=== PATIENT | female | born 1940 | race Caucasian/White ===

== ENCOUNTER 2018-09-07 08:50 | Inpatient (IN) ==
--- NOTE | 2018-09-07 09:01 | Emergency Department Note ---
Addendum entered and electronically signed by Yoel Morgan DO 09/07/18 13:42: The history, physical exam, and medical decision making was performed by the medical student either while I was physically present and actively involved or I personally re-performed the exam and medical decision making. I have verified the accuracy of the medical student's documentation with regards to the history, physical exam findings, and medical decision making. Few additional note for further information and documentation as this note was signed prior to my documentation. Original Note: Disposition Clinical Impression: NSTEMI (non-ST elevated myocardial infarction) Disposition: Still a Patient Forms: Work/School Release, ED Satisfaction Letter General Adult HPI - General Chief complaint: ED Abdominal Pain Stated complaint: Pain Everywhere Time Seen by Provider: 09/07/18 09:00 Mode of arrival: ambulatory Limitations: no limitations Vital Signs Reviewed: Yes - History of Present Illness HPI Narrative: Marjorie Portillo is a 78 year old female presenting to the emergency department with a two hour history of mid sternal chest pain radiating down into her right flank, along with nausea, vomiting, and diarrhea. She states that at 7:30 this morning she awoke to use the bathroom and was unable to return to sleep due to the pain. She states that the pain does not radiate into either arm. She states that she has had 3 episodes of non-bloody emesis along with "continuous" diarrhea. She states that she has had this chest pain before in the past, and presented to he ED twice. She states that the last time she had this pain was in October when she underwent a heart catheterization, but denies any stent placement or further action and believes that the cath did no show any significant blockages. She states that she was given nitro to take if she had future chest pain, but that she did not take it this morning. She states that both of her brothers had IA's, but they were over the age of 50. She denies any recent travel, surgeries, prior DVTs or PEs, or use of hormone therapy. She admits to a recent URI, but denies any current cough, fevers, or chills. Onset (ago): hour(s) (2) Location: chest, back, abdomen Radiation: non-radiation Pain Severity: moderate, similar to prior episodes Pain Scale: 8 Quality: crushing Consistency: constant Improves with: nothing Worsens with: other (Deep breath) Associated symptoms: Reports: chest pain Treatments Prior to Arrival: none - Related Data Home Medications Medication Instructions Recorded Confirmed Amitriptyline [Elavil] 10 mg PO DAILY 03/03/16 03/03/16 Aspirin 81 mg PO DAILY 03/03/16 03/03/16 Atorvastatin [Lipitor] 40 mg PO HS 03/03/16 03/03/16 Clopidogrel Bisulfate [Plavix] 75 mg PO 03/03/16 GlipiZIDE XL (24 HR) [Glucotrol XL] 10 mg PO 0800 03/03/16 03/03/16 Lisinopril [Zestril] 10 mg PO BID 03/03/16 03/03/16 Metformin HCl ER 03/03/16 Metoprolol [Lopressor] 25 mg PO BID 03/03/16 03/03/16 Pentosan Polysulfate Sodium 100 mg PO Q4H PRN 03/03/16 03/03/16 [Elmiron] SitaGLIPtin [Januvia] 100 mg PO DAILY 03/03/16 03/03/16 Previous Rx's Medication Instructions Recorded HYDROcodone/Acet 5/325 mg [[place] 0.5 - 1 tab PO Q6H PRN #6 tab 11/12/17 5-325 mg] Allergies Allergy/AdvReac Type Severity Reaction Status Date / Time Penicillins Allergy Anaphylaxis Verified 11/12/17 18:02 All systems ED: reviewed and negative except as stated. Review of Systems: As Per HPI Constitutional: Denies: fever, chills, weakness, weight change Eyes: Denies: eye pain, eye discharge, vision change ENT ED: Denies: ear pain, throat pain, dental pain, hearing loss, epistaxis, congestion, dysphagia Cardiovascular: Reports: as per HPI, chest pain. Denies: palpitations, dyspnea on exertion, orthopnea, edema, syncope, paroxysmal nocturnal dyspnea Respiratory: Reports: as per HPI, dyspnea. Denies: cough, wheezes, hemoptysis, stridor Gastrointestinal: Reports: as per HPI, abdominal pain, nausea, vomiting, diarrhea. Denies: constipation, hematemesis, melena, hematochezia, other Genitourinary: Reports: as per HPI (Takes Azo for chronic interstitial cystitis so urine is discolored). Denies: urgency, dysuria, frequency, hematuria, discharge, abnormal menses, dyspareunia, genital lesions Musculoskeletal: Reports: as per HPI. Denies: back pain, neck pain, joint swelling, arthralgia, myalgia Integumentary: Denies: rash, abrasion, lesions Neurological: Denies: headache, weakness, numbness, paresthesias, confusion, abnormal gait, vertigo Psychiatric: Denies: anxiety, depression, suicidal thoughts, homicidal thoughts, auditory hallucinations, visual hallucinations Endocrine: Denies: fatigue Hematological/Lymphatic: Denies: easy bleeding, easy bruising Allergic/Immunologic: Denies: facial swelling, urticaria Past Medical History - Past Medical History Medical history: Reports: diabetes, hyperlipidemia, hypertension, renal disease, TIA Surgical history: Reports: other Psychiatric history: Reports: no psych history REGIONAL OPERATIONS MANAGER history: Reports: no REGIONAL OPERATIONS MANAGER history - Social History Smoking Status: Former smoker Smokeless Tobacco Status: No Alcohol use: Reports: occasionally Drug use: Reports: none Physical Exam - General Limitations: no limitations General appearance: alert, in no apparent distress - Head Head exam: atraumatic, normocephalic, normal inspection - Eye Eye exam: Present: normal appearance, PERRL, EOMI - ENT ENT exam: normal exam, normal oropharynx, mucous membranes moist - Neck Neck exam: Present: normal inspection, full ROM, trachea midline - Chest Chest inspection: Present: normal inspection, symmetric chest wall rise. Absent: tenderness, rash, abscess - Respiratory Respiratory exam: Present: normal lung sounds bilaterally - Cardiovascular Cardiovascular exam: Present: regular rate, normal rhythm, normal heart sounds - Abdominal Exam Abdominal exam: Present: soft, tenderness (Lower abdomen). Absent: distention, guarding, rebound, rigidity - Extremities Exam Extremities exam: Present: normal inspection, full ROM. Absent: tenderness, pedal edema - Expanded Lower Extremity Exam Hip/Pelvis exam: Present: normal inspection, full ROM Upper leg exam: Present: normal inspection, full ROM Knee exam: Present: normal inspection, full ROM Lower leg exam: Present: normal inspection, full ROM Ankle exam: Present: normal inspection, full ROM Foot/toe exam: Present: normal inspection, full ROM Neurovascular/Tendon exam: Absent: motor deficit, sensory deficit, tendon deficit - Back Exam Back exam: Present: full ROM, paraspinal tenderness. Absent: rashes - Neurological Exam Neurological exam: Present: alert, oriented X3 - Psychiatric Psychiatric exam: Present: normal affect, normal mood - Skin Skin exam: Present: warm, dry, intact, normal color. Absent: rash Course Vital Signs Temperature 97.5 F L 09/07/18 08:51 Pulse Rate 71 09/07/18 08:51 Respiratory Rate 18 09/07/18 08:51 Blood Pressure 179/116 09/07/18 08:51 O2 Sat by Pulse Oximetry 97 09/07/18 08:51 Temperature 97.5 F L 09/07/18 09:12 Pulse Rate 71 09/07/18 09:12 Respiratory Rate 18 09/07/18 09:12 Blood Pressure 179/116 09/07/18 09:12 O2 Sat by Pulse Oximetry 97 09/07/18 09:12 Oxygen Delivery Oxygen Delivery Room Air Medical Decision Making - Lab Data Lab Results 09/07/18 Range/Units 09:22 Urine Color [place] A (Yellow) Urine Clarity Turbid A (Clear) Urine pH 7.0 (5.0-8.0) pH Units Ur Specific [place] 1.025 (1.010-1.025) Urine Protein 100 H (Neg-Trace) mg/dL Urine Glucose (UA) 500 H (Normal) mg/dL Urine Ketones Trace H (Negative) mg/dL Urine Blood Large H (Negative) Urine Nitrite Positive A (Negative) Urine Bilirubin Small H (Negative) Urine Urobilinogen 2.0 H (Normal) mg/dL Ur Leukocyte Esterase Small H (Negative) Urine Microscopic RBC 0-3 (0-3) per hpf Urine Microscopic WBC 0-3 (0-3) per hpf Ur Squamous Epith Cells Few (None-Few) per lpf Amorphous Sediment Few (Few) Urine Bacteria None Seen (None-Few) per hpf Hyaline Casts None Seen (None-Few) per lpf Urine Yeast Few H (None Seen) per hpf Ur Culture Indicated? YES A (NO)
[2018-09-07 09:34] LABS: Bilirubin,Urine Small (Negative); Blood,Urine Large (Negative); Clarity,Urine Turbid (Clear); Color,Urine Orange (Yellow); Glucose,Urine (UA) 500 mg/dL (Normal); Ketones,Urine Trace mg/dL (Negative); Leukocyte Esterase,Urine Small (Negative); Nitrite,Urine Positive (Negative); Protein,Urine 100 mg/dL (Neg-Trace); Specific Gravity,Urine 1.025 (1.010-1.025)
[2018-09-07 09:36] LABS: Bacteria,Urine None Seen per hpf (None-Few); Hyaline Casts,Urine None Seen per lpf (None-Few); RBC,Urine 0-3 per hpf (0-3); Squamous Epithelial Cell,Urine Few per lpf (None-Few); WBC,Urine 0-3 per hpf (0-3)
[2018-09-07] MEDS ORDERED: *HR* FentaNYL (PF) 100 MCG/2 ML VIAL IVP ONE (09:43)
[2018-09-07] MEDS ORDERED: Ondansetron 4 MG/2 ML VIAL IVP ONE (09:44)
[2018-09-07] MEDS ORDERED: Aspirin 81 MG TAB.CHEW PO STA (09:45)
[2018-09-07 09:55] LABS: Amorphous Sediment,Urine Few (Few)
[2018-09-07 09:57] LABS: Yeast,Urine Few per hpf (None Seen)
[2018-09-07] MEDS ORDERED: Isovue-370 500 ML INFUS..BTL IV ONE (10:10)
[2018-09-07 10:35] LABS: Alanine Aminotransferase 18 Units/L (7-52); Albumin 4.3 g/dL (3.5-5.7); Albumin/Globulin Ratio 1.6 (1.1-2.2); Alkaline Phosphatase 62 Units/L (34-104); Aspartate Amino Transferase 16 Units/L (13-39); BUN/Creatinine Ratio 19 (6-26); Bilirubin,Total 0.7 mg/dL (0.3-1.0); Blood Urea Nitrogen 18 mg/dL (8-23); Calcium 9.1 mg/dL (8.6-10.3); Carbon Dioxide 28 mEq/L (23-29); Chloride 105 mEq/L (98-107); Globulin 2.7 g/dL (2.4-3.5); Glucose 315 mg/dL (70-105); Lipase 102 Units/L (11-82); Osmolality,Calculated 306 (280-300); Potassium 4.2 mEq/L (3.5-5.1); Sodium 141 mEq/L (136-145); eGFR For Non-African Americans 56 (> 60)
[2018-09-07 10:36] LABS: Troponin I 0.11 ng/mL (< 0.04)
[2018-09-07] MEDS ORDERED: cefTRIAXone 1,000 MG in Water for inj. (sterile) 20 ML 10 ML IVP ONE (10:42)
[2018-09-07] MEDS ORDERED: *HR* Labetalol 20 MG/4 ML SYRINGE IVP ONE (10:47)
[2018-09-07 10:57] LABS: Basophils # 0.1 K/mcL (0.0-0.2); Basophils % 0.4 %; Eosinophils # 0.1 K/mcL (0.0-0.6); Eosinophils % 0.9 %; Hematocrit 42.8 % (35.3-44.9); Hemoglobin 13.8 g/dL (11.5-15.4); Immature Granulocytes % 0.5 % (0-4); Lymphocytes # 1.2 K/mcL (0.6-4.6); Lymphocytes % 8.1 %; Mean Corpuscular HGB Conc 32.2 g/dL (31.6-35.5); Mean Corpuscular Hemoglobin 29.1 pg (28.0-33.3); Mean Corpuscular Volume 90.3 fL (83.0-100.0); Mean Platelet Volume 9.2 fL (9.4-12.4); Monocytes # 0.7 K/mcL (0.0-1.3); Monocytes % 4.7 %; Platelet Count 311 K/mcL (140-400); Red Blood Count 4.74 M/mcL (3.82-4.97); Red Cell Distribution Width 13.1 % (11.5-14.5); Segmented Neutrophils % 85.4 %
[2018-09-07] MEDS ORDERED: Levofloxacin 750 MG/150 ML 750 MG/150 ML BAG IVPB STA (11:10)
[2018-09-07 11:34] LABS: INR 0.9; Prothrombin Time 9.6 Seconds (9.4-12.1)
[2018-09-07 11:36] LABS: Activated Partial Thrombo Time 28.2 Seconds (26.0-36.0)
--- NOTE | 2018-09-07 12:34 | Emergency Department Note ---
Disposition Clinical Impression: NSTEMI (non-ST elevated myocardial infarction) Disposition: Still a Patient Referrals: Yosi Gonzalez Jr, MD [Primary Care Provider] - Forms: ED Satisfaction Letter, Work/School Release General Adult HPI - General Chief complaint: ED Abdominal Pain Stated complaint: Pain Everywhere Time Seen by Provider: 09/07/18 09:00 Mode of arrival: ambulatory Limitations: no limitations - History of Present Illness Location: chest, back, abdomen Pain Scale: 8 Quality: crushing Improves with: nothing Worsens with: other (Deep breath) Associated symptoms: Reports: chest pain Treatments Prior to Arrival: none - Related Data Home Medications Medication Instructions Recorded Confirmed Aspirin 81 mg PO DAILY 03/03/16 09/07/18 Atorvastatin [Lipitor] 40 mg PO HS 03/03/16 09/07/18 Clopidogrel Bisulfate [Plavix] 75 mg PO DAILY 03/03/16 09/07/18 GlipiZIDE XL (24 HR) [Glucotrol XL] 10 mg PO 0800 03/03/16 09/07/18 Lisinopril [Zestril] 10 mg PO DAILY 03/03/16 09/07/18 Metoprolol [Lopressor] 25 mg PO BID 03/03/16 09/07/18 Amitriptyline [Elavil] 25 mg PO HS 09/07/18 09/07/18 Metformin HCl 1,000 mg PO BID 09/07/18 09/07/18 Allergies Allergy/AdvReac Type Severity Reaction Status Date / Time Penicillins Allergy Anaphylaxis Verified 11/12/17 18:02 Constitutional: Denies: fever, chills, weakness, weight change Eyes: Denies: eye pain, eye discharge, vision change ENT ED: Denies: ear pain, throat pain, dental pain, hearing loss, epistaxis, congestion, dysphagia Cardiovascular: Reports: as per HPI, chest pain. Denies: palpitations, dyspnea on exertion, orthopnea, edema, syncope, paroxysmal nocturnal dyspnea Respiratory: Reports: as per HPI, dyspnea. Denies: cough, wheezes, hemoptysis, stridor Gastrointestinal: Reports: as per HPI, abdominal pain, nausea, vomiting, diarrhea. Denies: constipation, hematemesis, melena, hematochezia, other Genitourinary: Reports: as per HPI (Takes Azo for chronic interstitial cystitis so urine is discolored). Denies: urgency, dysuria, frequency, hematuria, discharge, abnormal menses, dyspareunia, genital lesions Musculoskeletal: Reports: as per HPI. Denies: back pain, neck pain, joint swelling, arthralgia, myalgia Integumentary: Denies: rash, abrasion, lesions Neurological: Denies: headache, weakness, numbness, paresthesias, confusion, abnormal gait, vertigo Psychiatric: Denies: anxiety, depression, suicidal thoughts, homicidal thoughts, auditory hallucinations, visual hallucinations Endocrine: Denies: fatigue Hematological/Lymphatic: Denies: easy bleeding, easy bruising Allergic/Immunologic: Denies: facial swelling, urticaria Past Medical History - Past Medical History Medical history: Reports: diabetes, hyperlipidemia, hypertension, renal disease, TIA Surgical history: Reports: other Psychiatric history: Reports: no psych history CAREER AND GUIDANCE COUNSELOR history: Reports: no CAREER AND GUIDANCE COUNSELOR history - Social History Smoking Status: Former smoker Smokeless Tobacco Status: No Alcohol use: Reports: occasionally Drug use: Reports: none Physical Exam - General Limitations: no limitations General appearance: alert, in no apparent distress Course Vital Signs Temperature 97.5 F L 09/07/18 08:51 Pulse Rate 71 09/07/18 08:51 Respiratory Rate 18 09/07/18 08:51 Blood Pressure 179/116 09/07/18 08:51 O2 Sat by Pulse Oximetry 97 09/07/18 08:51 Temperature 97.5 F L 09/07/18 09:12 Pulse Rate 71 09/07/18 09:12 Respiratory Rate 18 09/07/18 09:12 Blood Pressure 179/116 09/07/18 09:12 O2 Sat by Pulse Oximetry 97 09/07/18 09:12 Oxygen Delivery Oxygen Delivery Room Air Medical Decision Making - Lab Data Result diagrams: 09/07/18 09:36 09/07/18 09:36 Lab Results 09/07/18 09/07/18 09/07/18 Range/Units 09:22 09:36 09:36 WBC 15.2 H (4.3-11.1) K/mcL RBC 4.74 (3.82-4.97) M/mcL Hgb 13.8 (11.5-15.4) g/dL Hct 42.8 (35.3-44.9) % MCV 90.3 (83.0-100.0) fL MCH 29.1 (28.0-33.3) pg MCHC 32.2 (31.6-35.5) g/dL RDW 13.1 (11.5-14.5) % Plt Count 311 (140-400) K/mcL MPV 9.2 L (9.4-12.4) fL Immature Gran % 0.5 (0-4) % Seg Neutrophils % 85.4 % Lymphocytes % 8.1 % Monocytes % 4.7 % Eosinophils % 0.9 % Basophils % 0.4 % Neutrophils # 13.0 H (1.6-8.9) K/mcL Lymphocytes # 1.2 (0.6-4.6) K/mcL Monocytes # 0.7 (0.0-1.3) K/mcL Eosinophils # 0.1 (0.0-0.6) K/mcL Basophils # 0.1 (0.0-0.2) K/mcL PT (9.4-12.1) Seconds INR APTT (26.0-36.0) Seconds Sodium 141 (136-145) mEq/L Potassium 4.2 (3.5-5.1) mEq/L Chloride 105 (98-107) mEq/L Carbon Dioxide 28 (23-29) mEq/L BUN 18 (8-23) mg/dL Creatinine 0.97 (0.60-1.20) mg/dL Est GFR ( Amer) > 60 (> 60) Est GFR (Non-Af Amer) 56 L (> 60) BUN/Creatinine Ratio 19 (6-26) Glucose 315 H (70-105) mg/dL Calculated Osmolality 306 H (280-300) Calcium 9.1 (8.6-10.3) mg/dL Total Bilirubin 0.7 (0.3-1.0) mg/dL AST 16 (13-39) Units/L ALT 18 (7-52) Units/L Alkaline Phosphatase 62 (34-104) Units/L Troponin I 0.11 H* (< 0.04) ng/mL Serum Total Protein 7.0 (6.4-8.9) g/dL Albumin 4.3 (3.5-5.7) g/dL Globulin 2.7 (2.4-3.5) g/dL Albumin/Globulin Ratio 1.6 (1.1-2.2) Lipase 102 H (11-82) Units/L Urine Color [place] A (Yellow) Urine Clarity Turbid A (Clear) Urine pH 7.0 (5.0-8.0) pH Units Ur Specific [place] 1.025 (1.010-1.025) Urine Protein 100 H (Neg-Trace) mg/dL Urine Glucose (UA) 500 H (Normal) mg/dL Urine Ketones Trace H (Negative) mg/dL Urine Blood Large H (Negative) Urine Nitrite Positive A (Negative) Urine Bilirubin Small H (Negative) Urine Urobilinogen 2.0 H (Normal) mg/dL Ur Leukocyte Esterase Small H (Negative) Urine Microscopic RBC 0-3 (0-3) per hpf Urine Microscopic WBC 0-3 (0-3) per hpf Ur Squamous Epith Cells Few (None-Few) per lpf Amorphous Sediment Few (Few) Urine Bacteria None Seen (None-Few) per hpf Hyaline Casts None Seen (None-Few) per lpf Urine Yeast Few H (None Seen) per hpf Ur Culture Indicated? YES A (NO) 09/07/18 Range/Units 09:36 WBC (4.3-11.1) K/mcL RBC (3.82-4.97) M/mcL Hgb (11.5-15.4) g/dL Hct (35.3-44.9) % MCV (83.0-100.0) fL MCH (28.0-33.3) pg MCHC (31.6-35.5) g/dL RDW (11.5-14.5) % Plt Count (140-400) K/mcL MPV (9.4-12.4) fL Immature Gran % (0-4) % Seg Neutrophils % % Lymphocytes % % Monocytes % % Eosinophils % % Basophils % % Neutrophils # (1.6-8.9) K/mcL Lymphocytes # (0.6-4.6) K/mcL Monocytes # (0.0-1.3) K/mcL Eosinophils # (0.0-0.6) K/mcL Basophils # (0.0-0.2) K/mcL PT 9.6 (9.4-12.1) Seconds INR 0.9 APTT 28.2 (26.0-36.0) Seconds Sodium (136-145) mEq/L Potassium (3.5-5.1) mEq/L Chloride (98-107) mEq/L Carbon Dioxide (23-29) mEq/L BUN (8-23) mg/dL Creatinine (0.60-1.20) mg/dL Est GFR ( Amer) (> 60) Est GFR (Non-Af Amer) (> 60) BUN/Creatinine Ratio (6-26) Glucose (70-105) mg/dL Calculated Osmolality (280-300) Calcium (8.6-10.3) mg/dL Total Bilirubin (0.3-1.0) mg/dL AST (13-39) Units/L ALT (7-52) Units/L Alkaline Phosphatase (34-104) Units/L Troponin I (< 0.04) ng/mL Serum Total Protein (6.4-8.9) g/dL Albumin (3.5-5.7) g/dL Globulin (2.4-3.5) g/dL Albumin/Globulin Ratio (1.1-2.2) Lipase (11-82) Units/L Urine Color (Yellow) Urine Clarity (Clear) Urine pH (5.0-8.0) pH Units Ur Specific [place] (1.010-1.025) Urine Protein (Neg-Trace) mg/dL Urine Glucose (UA) (Normal) mg/dL Urine Ketones (Negative) mg/dL Urine Blood (Negative) Urine Nitrite (Negative) Urine Bilirubin (Negative) Urine Urobilinogen (Normal) mg/dL Ur Leukocyte Esterase (Negative) Urine Microscopic RBC (0-3) per hpf Urine Microscopic WBC (0-3) per hpf Ur Squamous Epith Cells (None-Few) per lpf Amorphous Sediment (Few) Urine Bacteria (None-Few) per hpf Hyaline Casts (None-Few) per lpf Urine Yeast (None Seen) per hpf Ur Culture Indicated? (NO) Attestation Statement - Attestation Attestation: I examined this patient and my medical decision-making was reviewed with the Resident Physician. I agree with the documented findings, disposition and treatment plan as described except to the extent set forth below. 78 year old female presents to the eD with complaints with multisystem complants o and mutlie (+) ROS system. It appears she ahs a a positive troponin and we will follows derejeg with a CTA chest and abdomen and then admit to medicine. non ischemic ekg
[2018-09-07] MEDS ORDERED: 0.9 % Sodium Chloride 1,000 ML IVC ONE (12:53)
--- NOTE | 2018-09-07 13:19 | Emergency Department Note ---
Disposition Clinical Impression: Pyelonephritis Chest pain Qualifiers: Chest pain type: unspecified Qualified Code(s): R07.9 - Chest pain, unspecified Hydronephrosis Qualifiers: Hydronephrosis type: unspecified Qualified Code(s): N13.30 - Unspecified hydronephrosis Disposition: Still a Patient Condition: Fair Referrals: Yosi Gonzalez Jr, MD [Primary Care Provider] - General Adult HPI - General Chief complaint: ED Abdominal Pain Stated complaint: Pain Everywhere Time Seen by Provider: 09/07/18 09:00 Mode of arrival: ambulatory Limitations: no limitations Nursing Notes Reviewed: Yes Vital Signs Reviewed: Yes - History of Present Illness HPI Narrative: 78 year old female presented to emergency department with concern for multiple complaints. Patient reports right-sided flank pain as well as chest tightness that started this morning. It started at 7:30. Reports history of heart catheterization. States that she is having same symptoms that she is having now. Patient reports Brian being on Pyridium for her chronic cystitis. Patient denies any fevers, but does report nausea vomiting. Denies any cough, sputum production. Patient denies any unilateral lower extremity swelling, history of DVTs, recent travel. Location: chest, back, abdomen Pain Scale: 8 Quality: crushing Improves with: nothing Worsens with: other (Deep breath) Associated symptoms: Reports: chest pain Treatments Prior to Arrival: none - Related Data Home Medications Medication Instructions Recorded Confirmed Aspirin 81 mg PO DAILY 03/03/16 09/07/18 Atorvastatin [Lipitor] 40 mg PO HS 03/03/16 09/07/18 Clopidogrel Bisulfate [Plavix] 75 mg PO DAILY 03/03/16 09/07/18 GlipiZIDE XL (24 HR) [Glucotrol XL] 10 mg PO 0800 03/03/16 09/07/18 Lisinopril [Zestril] 10 mg PO DAILY 03/03/16 09/07/18 Metoprolol [Lopressor] 25 mg PO BID 03/03/16 09/07/18 Amitriptyline [Elavil] 25 mg PO HS 09/07/18 09/07/18 Metformin HCl 1,000 mg PO BID 09/07/18 09/07/18 Allergies Allergy/AdvReac Type Severity Reaction Status Date / Time Penicillins Allergy Anaphylaxis Verified 11/12/17 18:02 All systems ED: reviewed and negative except as stated. Review of Systems: As Per HPI Constitutional: Denies: fever, chills, weakness, weight change Eyes: Denies: eye pain, eye discharge, vision change ENT ED: Denies: ear pain, throat pain, dental pain, hearing loss, epistaxis, congestion, dysphagia Cardiovascular: Reports: as per HPI, chest pain. Denies: palpitations, dyspnea on exertion, orthopnea, edema, syncope, paroxysmal nocturnal dyspnea Respiratory: Reports: as per HPI, dyspnea. Denies: cough, wheezes, hemoptysis, stridor Gastrointestinal: Reports: as per HPI, abdominal pain, nausea, vomiting, diarrhea. Denies: constipation, hematemesis, melena, hematochezia, other Genitourinary: Reports: as per HPI (Takes Azo for chronic interstitial cystitis so urine is discolored). Denies: urgency, dysuria, frequency, hematuria, discharge, abnormal menses, dyspareunia, genital lesions Musculoskeletal: Reports: as per HPI. Denies: back pain, neck pain, joint swelling, arthralgia, myalgia Integumentary: Denies: rash, abrasion, lesions Neurological: Denies: headache, weakness, numbness, paresthesias, confusion, abnormal gait, vertigo Psychiatric: Denies: anxiety, depression, suicidal thoughts, homicidal thoughts, auditory hallucinations, visual hallucinations Endocrine: Denies: fatigue Hematological/Lymphatic: Denies: easy bleeding, easy bruising Allergic/Immunologic: Denies: facial swelling, urticaria Past Medical History - Past Medical History Medical history: Reports: diabetes, hyperlipidemia, hypertension, renal disease, TIA Surgical history: Reports: other Psychiatric history: Reports: no psych history WATER OPERATOR history: Reports: no WATER OPERATOR history - Social History Smoking Status: Former smoker Smokeless Tobacco Status: No Alcohol use: Reports: occasionally Drug use: Reports: none Physical Exam - General Limitations: no limitations General appearance: alert, in no apparent distress - Head Head exam: normocephalic - Eye Eye exam: Present: EOMI - ENT ENT exam: mucous membranes moist - Neck Neck exam: Present: trachea midline - Chest Chest inspection: Present: symmetric chest wall rise - Respiratory Respiratory exam: Present: normal lung sounds bilaterally. Absent: respiratory distress, accessory muscle use - Cardiovascular Cardiovascular exam: Present: regular rate, normal rhythm, normal heart sounds - Abdominal Exam Abdominal exam: Present: soft, tenderness. Absent: distention, guarding, rebound, rigidity Abdominal tenderness: Present: RUQ, mild - Extremities Exam Extremities exam: Present: normal capillary refill - Back Exam Back exam: Present: normal inspection - Neurological Exam Neurological exam: Present: alert, oriented X3 - Psychiatric Psychiatric exam: Present: normal affect, normal mood - Skin Skin exam: Present: warm, dry, intact, normal color. Absent: rash Course Vital Signs Temperature 97.5 F L 09/07/18 08:51 Pulse Rate 71 09/07/18 08:51 Respiratory Rate 18 09/07/18 08:51 Blood Pressure 179/116 09/07/18 08:51 O2 Sat by Pulse Oximetry 97 09/07/18 08:51 Temperature 97.5 F L 09/07/18 09:12 Pulse Rate 89 09/07/18 13:21 Respiratory Rate 19 09/07/18 13:21 Blood Pressure 127/65 09/07/18 13:21 O2 Sat by Pulse Oximetry 98 09/07/18 13:21 Oxygen Delivery Oxygen Delivery Nasal Cannula Medical Decision Making - [facility] Narrative Medical decision making narrative: 78 year female presents emergency department with concern for chest pain as well as right flank pain. Patient hemodynamically stable not in acute distress. She was given fentanyl for pain. We will obtain EKG which revealed new ischemic ST changes. Patient was hypertensive here. She does complain of right flank pain. We obtained CTA of the chest and abdomen and pelvis to rule out any evidence of dissection or pulmonary embolus. CTA of the abdomen and pelvis revealed right-sided hydronephrosis. No evidence of any obstruction per radiology. Chest x-ray did not reveal any acute cardiopulmonary abnormality. CTA of the chest reveals possible benign mediastinal nodule. Troponin here mildly elevated at 0.11. It has been this high in the past when she had heart catheterization performed. Patient is given aspirin. Patient has evidence of urinary tract infection. She is given Levaquin as she is allergic to penicillin as well as crawls anaphylaxis. I spoke with the family about admission. They agree with plan. Patient not having any symptoms at time of admission. She states she is feeling a lot better. Hemodynamically stable not in any acute distress and time in the emergency department. Hospitalist agreed to accept admission pending urology co nsultation. I have also spoken with Dr. Vazquez, urology account classification clerk who has agreed to see patient as a consult regarding her hydronephrosis. Chest X-Ray 09/07/18 09:08 IMPRESSION: No evidence for acute cardiopulmonary process. D/ / Brett Preciado MD / Brett Preciado MD Interpreting Provider: Brett Preciado MD Gallbladder Ultrasound 09/07/18 09:38 IMPRESSION: Cholelithiasis without evidence for acute cholecystitis. Mildly prominent common bile duct measuring up to 7 mm, similar to prior remote CT exam 03/03/2016 and felt likely on the basis of patient age. Clinical and laboratory correlation suggested and if there is clinical concern for biliary obstruction or choledocholithiasis consider further evaluation with MRI/MRCP. Mild pelvicaliectasis to the right kidney, new from 03/03/2016, but without obvious etiology. Consider CT evaluation. Mild diffuse fatty infiltration of the liver. D/ / 09/07/2018 11:36:42 Brett Preciado MD / Josee Piper Interpreting Provider: Brett Preciado MD Abdomen/Pelvis CTA 09/07/18 10:10 IMPRESSION: 1. Right hydronephrosis and hydroureter extending to the level of the urinary bladder, new since the CT scan 03/03/2016. No obstructing stone or mass is identified. This could be due to recently passed stone, reflux, or complicated urinary tract infection. 2. Atherosclerosis within the aorta. No acute abnormality. 3. Emphysema. 4. Anterior mediastinal nodule has mildly enlarged since 2013. The slow growth favors a benign etiology. 5. Cholelithiasis. D/ / Ancelmo Wiggins MD / Ancelmo Wiggins MD Interpreting Provider: Ancelmo Wiggins MD Chest CTA 09/07/18 10:10 IMPRESSION: 1. Right hydronephrosis and hydroureter extending to the level of the urinary bladder, new since the CT scan 03/03/2016. No obstructing stone or mass is identified. This could be due to recently passed stone, reflux, or complicated urinary tract infection. 2. Atherosclerosis within the aorta. No acute abnormality. 3. Emphysema. 4. Anterior mediastinal nodule has mildly enlarged since 2013. The slow growth favors a benign etiology. 5. Cholelithiasis. D/ / Ancelmo Wiggins MD / Ancelmo Wiggins MD Interpreting Provider: Ancelmo Wiggins MD - Lab Data Result diagrams: 09/07/18 09:36 09/07/18 09:36 Lab Results 09/07/18 09/07/18 09/07/18 Range/Units 09:22 09:36 09:36 WBC 15.2 H (4.3-11.1) K/mcL RBC 4.74 (3.82-4.97) M/mcL Hgb 13.8 (11.5-15.4) g/dL Hct 42.8 (35.3-44.9) % MCV 90.3 (83.0-100.0) fL MCH 29.1 (28.0-33.3) pg MCHC 32.2 (31.6-35.5) g/dL RDW 13.1 (11.5-14.5) % Plt Count 311 (140-400) K/mcL MPV 9.2 L (9.4-12.4) fL Immature Gran % 0.5 (0-4) % Seg Neutrophils % 85.4 % Lymphocytes % 8.1 % Monocytes % 4.7 % Eosinophils % 0.9 % Basophils % 0.4 % Neutrophils # 13.0 H (1.6-8.9) K/mcL Lymphocytes # 1.2 (0.6-4.6) K/mcL Monocytes # 0.7 (0.0-1.3) K/mcL Eosinophils # 0.1 (0.0-0.6) K/mcL Basophils # 0.1 (0.0-0.2) K/mcL PT (9.4-12.1) Seconds INR APTT (26.0-36.0) Seconds Sodium 141 (136-145) mEq/L Potassium 4.2 (3.5-5.1) mEq/L Chloride 105 (98-107) mEq/L Carbon Dioxide 28 (23-29) mEq/L BUN 18 (8-23) mg/dL Creatinine 0.97 (0.60-1.20) mg/dL Est GFR ( Amer) > 60 (> 60) Est GFR (Non-Af Amer) 56 L (> 60) BUN/Creatinine Ratio 19 (6-26) Glucose 315 H (70-105) mg/dL Calculated Osmolality 306 H (280-300) Lactic Acid (0.5-2.2) mmol/L Calcium 9.1 (8.6-10.3) mg/dL Total Bilirubin 0.7 (0.3-1.0) mg/dL AST 16 (13-39) Units/L ALT 18 (7-52) Units/L Alkaline Phosphatase 62 (34-104) Units/L Troponin I 0.11 H* (< 0.04) ng/mL Serum Total Protein 7.0 (6.4-8.9) g/dL Albumin 4.3 (3.5-5.7) g/dL Globulin 2.7 (2.4-3.5) g/dL Albumin/Globulin Ratio 1.6 (1.1-2.2) Lipase 102 H (11-82) Units/L Urine Color [place] A (Yellow) Urine Clarity Turbid A (Clear) Urine pH 7.0 (5.0-8.0) pH Units Ur Specific [place] 1.025 (1.010-1.025) Urine Protein 100 H (Neg-Trace) mg/dL Urine Glucose (UA) 500 H (Normal) mg/dL Urine Ketones Trace H (Negative) mg/dL Urine Blood Large H (Negative) Urine Nitrite Positive A (Negative) Urine Bilirubin Small H (Negative) Urine Urobilinogen 2.0 H (Normal) mg/dL Ur Leukocyte Esterase Small H (Negative) Urine Microscopic RBC 0-3 (0-3) per hpf Urine Microscopic WBC 0-3 (0-3) per hpf Ur Squamous Epith Cells Few (None-Few) per lpf Amorphous Sediment Few (Few) Urine Bacteria None Seen (None-Few) per hpf Hyaline Casts None Seen (None-Few) per lpf Urine Yeast Few H (None Seen) per hpf Ur Culture Indicated? YES A (NO) 09/07/18 09/07/18 Range/Units 09:36 12:58 WBC (4.3-11.1) K/mcL RBC (3.82-4.97) M/mcL Hgb (11.5-15.4) g/dL Hct (35.3-44.9) % MCV (83.0-100.0) fL MCH (28.0-33.3) pg MCHC (31.6-35.5) g/dL RDW (11.5-14.5) % Plt Count (140-400) K/mcL MPV (9.4-12.4) fL Immature Gran % (0-4) % Seg Neutrophils % % Lymphocytes % % Monocytes % % Eosinophils % % Basophils % % Neutrophils # (1.6-8.9) K/mcL Lymphocytes # (0.6-4.6) K/mcL Monocytes # (0.0-1.3) K/mcL Eosinophils # (0.0-0.6) K/mcL Basophils # (0.0-0.2) K/mcL PT 9.6 (9.4-12.1) Seconds INR 0.9 APTT 28.2 (26.0-36.0) Seconds Sodium (136-145) mEq/L Potassium (3.5-5.1) mEq/L Chloride (98-107) mEq/L Carbon Dioxide (23-29) mEq/L BUN (8-23) mg/dL Creatinine (0.60-1.20) mg/dL Est GFR ( Amer) (> 60) Est GFR (Non-Af Amer) (> 60) BUN/Creatinine Ratio (6-26) Glucose (70-105) mg/dL Calculated Osmolality (280-300) Lactic Acid 1.8 (0.5-2.2) mmol/L Calcium (8.6-10.3) mg/dL Total Bilirubin (0.3-1.0) mg/dL AST (13-39) Units/L ALT (7-52) Units/L Alkaline Phosphatase (34-104) Units/L Troponin I (< 0.04) ng/mL Serum Total Protein (6.4-8.9) g/dL Albumin (3.5-5.7) g/dL Globulin (2.4-3.5) g/dL Albumin/Globulin Ratio (1.1-2.2) Lipase (11-82) Units/L Urine Color (Yellow) Urine Clarity (Clear) Urine pH (5.0-8.0) pH Units Ur Specific [place] (1.010-1.025) Urine Protein (Neg-Trace) mg/dL Urine Glucose (UA) (Normal) mg/dL Urine Ketones (Negative) mg/dL Urine Blood (Negative) Urine Nitrite (Negative) Urine Bilirubin (Negative) Urine Urobilinogen (Normal) mg/dL Ur Leukocyte Esterase (Negative) Urine Microscopic RBC (0-3) per hpf Urine Microscopic WBC (0-3) per hpf Ur Squamous Epith Cells (None-Few) per lpf Amorphous Sediment (Few) Urine Bacteria (None-Few) per hpf Hyaline Casts (None-Few) per lpf Urine Yeast (None Seen) per hpf Ur Culture Indicated? (NO) - EKG Data EKG #1 EKG attestation: Yes I reviewed and interpreted this EKG. EKG results narrative: 9:22 Heart rate 69 bpm, PA interval 192 ms, QRS duration 134 ms, QT 448 ms, indeterminate axis Sinus rhythm ventricular rate 69 bpm. Right bundle-branch block unchanged. No ischemic ST changes.
--- NOTE | 2018-09-07 14:38 | Internal Med History&Physical ---
<Tyron Hilton - Last Filed: 09/07/18 18:07> Date of Encounter: 09/07/18 Time of Encounter: 14:00 Internal Medicine - H&P: HPI Chief complaint: Chest pain, abdominal pain Admitted From: Home Plans for Post Hospital Care: Home History of present illness: Ms. Portillo is a 78 year old female with PMHx of diabetes and interstitial cysitis(IC). She presented to [facility] ED for chest pain, abdominal pain, and back pain that began this morning after waking up; she was unable to fall back to sleep. She notes chest pain similar to previously episode, described as a tightness and heaviness. She did not take any medication prior to arrival in the ED. Does not notes anything that makes pain better or worse. History of LHC in 03/04/14 with minimal CAD and preserved LVEF without VHD. Troponin in the ED found to be 0.11 and no acute changes seen on EKG. She also notes abdominal pain that wrapped around to the back and described this as a tightness also. When I saw patient in the ED she notes overall pain is now gone since receiving antibiotics, fluids,and pain meds. She notes still feeling as though she has indigestion/chest pain. She notes with Hx of IC that she has no pain as long as she takes her pyridium daily. With medication her urine is already red/orange. She also notes multiple episodes of vomiting and diarrhea this morning, notes she believes this was secondary to severity of pain. No black or bloody stools. Notes only one emesis episode was blood tinged. Denies shortness of breath, confusion, falls, weakness. US of gallbladder and CT chest noted cholelithiasis without choleocystitis. CT abd/pelvis showed Right hydronephrosis and hydroureter without mass and stone, possibly secondary to infection. UA showing yeast, LE, nitrates, blood- sent for culture. Patient given Levaquin in the ED for urinary infection (PCN allergy). Admitted to the floor for further evaluation and treatment. Past Med Surg Social Fam HX - Past Medical History Medical history: diabetes, hyperlipidemia, hypertension, renal disease, TIA Psychiatric history: no psych history - Past Surgical History Surgical History: other Additional surgical history: foot sx - Social History Smoking Status: Former smoker Smokeless Tobacco Status: No Alcohol use: occasionally Drug use: none - Family History Mother Family Member Ethnicity: Non- Living Status: Still Living Hx Family Endocrine Disorder: Yes (Diabetes) Internal Medicine - H&P: Meds Aspirin 81 mg PO DAILY 03/03/16 [History] Atorvastatin [Lipitor] 40 mg PO HS 03/03/16 [History] Clopidogrel Bisulfate [Plavix] 75 mg PO DAILY 03/03/16 [History] GlipiZIDE XL (24 HR) [Glucotrol XL] 10 mg PO 0800 03/03/16 [History] Lisinopril [Zestril] 10 mg PO DAILY 03/03/16 [History] Metoprolol [Lopressor] 25 mg PO BID 03/03/16 [History] Amitriptyline [Elavil] 25 mg PO HS 09/07/18 [History] Metformin HCl 1,000 mg PO BID 09/07/18 [History] Allergy/AdvReac Type Severity Reaction Status Date / Time Penicillins Allergy Anaphylaxis Verified 11/12/17 18:02 All Systems PM: A 10-system review of systems was performed and is negative for pertinent findings except as documented above in the HPI. - Constitutional Vitals: Temp Pulse Resp BP Pulse Ox 97.5 F L 89 19 127/65 98 09/07/18 09:12 09/07/18 13:21 09/07/18 13:21 09/07/18 13:21 09/07/18 13:21 General appearance: Present: cooperative, A&O X 3, pleasant, no acute distress, answers questions appropriately Exam: . - Head Head exam: Present: atraumatic, normocephalic - Eye Eye exam: Present: normal appearance, conjuntiva pink, sclera anicteric - Neck Neck exam general surgery: Present: supple, trachea midline. Absent: lymphadenopathy - Respiratory Respiratory exam: Present: CTAB. Absent: accessory muscle use, rales, rhonchi, wheezes - Cardiovascular Cardiovascular exam: Present: RRR, +S1, +S2. Absent: diastolic murmur, gallop, rubs, systolic murmur - GI/Abdominal GI/Abdominal exam: Present: normal bowel sounds, soft, no peritoneal signs. Absent: distended, tenderness - Extremities Exam Extremities exam: Present: warm. Absent: calf tenderness, cyanotic - Neurological Exam Neurological exam: Present: alert, oriented X3, no focal deficits. Absent: facial droop, speech deficit - Skin Skin exam: Present: dry, intact Internal Med - H&P Results - Labs CBC & Chem 7: 09/07/18 17:00 09/07/18 09:36 Labs: Short CBC 09/07/18 Range/Units 09:36 WBC 15.2 H (4.3-11.1) K/mcL Hgb 13.8 (11.5-15.4) g/dL Hct 42.8 (35.3-44.9) % Plt Count 311 (140-400) K/mcL Neutrophils # 13.0 H (1.6-8.9) K/mcL BMP 09/07/18 09:36 Sodium 141 Potassium 4.2 Chloride 105 Carbon Dioxide 28 BUN 18 Creatinine 0.97 Glucose 315 H Calcium 9.1 Cardiac Enzymes 09/07/18 Range/Units 09:36 Troponin I 0.11 H* (< 0.04) ng/mL Liver Function 09/07/18 Range/Units 09:36 Total Bilirubin 0.7 (0.3-1.0) mg/dL AST 16 (13-39) Units/L ALT 18 (7-52) Units/L Alkaline Phosphatase 62 (34-104) Units/L Albumin 4.3 (3.5-5.7) g/dL Urine 09/07/18 Range/Units 09:22 Urine Color Jerome A (Yellow) Urine Clarity Turbid A (Clear) Urine pH 7.0 (5.0-8.0) pH Units Ur Specific [place] 1.025 (1.010-1.025) Urine Protein 100 H (Neg-Trace) mg/dL Urine Glucose (UA) 500 H (Normal) mg/dL - EKG Data -: EKG Interpreted by Myself (NSR with RBBB as seen on past EKG. No ST changes.) - EKG Data Prior EKG available for review: yes When compared to previous EKG: there is no significant change - Impressions ITS Impressions Chest X-Ray 09/07/18 09:08 IMPRESSION: No evidence for acute cardiopulmonary process. D/ / Brett Preciado MD / Brett Preciado MD Interpreting Provider: Brett Preciado MD Gallbladder Ultrasound 09/07/18 09:38 IMPRESSION: Cholelithiasis without evidence for acute cholecystitis. Mildly prominent common bile duct measuring up to 7 mm, similar to prior remote CT exam 03/03/2016 and felt likely on the basis of patient age. Clinical and laboratory correlation suggested and if there is clinical concern for biliary obstruction or choledocholithiasis consider further evaluation with MRI/MRCP. Mild pelvicaliectasis to the right kidney, new from 03/03/2016, but without obvious etiology. Consider CT evaluation. Mild diffuse fatty infiltration of the liver. D/ / 09/07/2018 11:36:42 Brett Preciado MD / Josee Piper Interpreting Provider: Brett Preciado MD Abdomen/Pelvis CTA 09/07/18 10:10 IMPRESSION: 1. Right hydronephrosis and hydroureter extending to the level of the urinary bladder, new since the CT scan 03/03/2016. No obstructing stone or mass is identified. This could be due to recently passed stone, reflux, or complicated urinary tract infection. 2. Atherosclerosis within the aorta. No acute abnormality. 3. Emphysema. 4. Anterior mediastinal nodule has mildly enlarged since 2013. The slow growth favors a benign etiology. 5. Cholelithiasis. D/ / Ancelmo Wiggins MD / Ancelmo Wiggins MD Interpreting Provider: Ancelmo Wiggins MD Chest CTA 09/07/18 10:10 IMPRESSION: 1. Right hydronephrosis and hydroureter extending to the level of the urinary bladder, new since the CT scan 03/03/2016. No obstructing stone or mass is identified. This could be due to recently passed stone, reflux, or complicated urinary tract infection. 2. Atherosclerosis within the aorta. No acute abnormality. 3. Emphysema. 4. Anterior mediastinal nodule has mildly enlarged since 2013. The slow growth favors a benign etiology. 5. Cholelithiasis. D/ / Ancelmo Wiggins MD / Ancelmo Wiggins MD Interpreting Provider: Ancelmo Wiggins MD - Assessment and plan (1) Elevated troponin Current Visit: Yes Status: Acute Assessment and plan: Chest pain: NSTEMI vs demand ischemia. [facility] on 2013 with minimal CAD. Trending troponins: 0.11 and 1.52 EKG unchanged from previous- RBBB, no ST changes. Patient started on Heparin gtt. Cardiology consult placed- spoke to Dr. Cortez. (2) Chest pain Current Visit: Yes Status: Acute Assessment and plan: see plan above for troponins. Qualifiers: Chest pain type: chest pain due to myocardial ischemia Ischemic chest pain type: unstable angina pectoris Qualified Code(s): I20.0 - Unstable angina (3) Pyelonephritis Current Visit: Yes Status: Acute Assessment and plan: Abd pain, hydronephrosis, leukocytosis, and positive UA. Started on Levaquin due to PCN allergy. Urology consulted, appreciate further recommendations. (4) Hydronephrosis Current Visit: Yes Status: Acute Assessment and plan: Seen on CT. No mass or obstruction seen. Urology consulted recommending cystoscopy and stenting- however this was prior to patient being started on Heparin gtt, will need to touch base with them in the morning to confirm plan. Qualifiers: Hydronephrosis type: unspecified Qualified Code(s): N13.30 - Unspecified hydronephrosis (5) Chronic interstitial cystitis with hematuria Current Visit: Yes Status: Chronic Assessment and plan: On pyridium at home. Will wait to restart pending urology consult. Appreciate urology consult and recommendations. (6) DM (diabetes mellitus), type 2 Current Visit: Yes Status: Chronic Assessment and plan: Hold home meds, give 14 units basal insulin and start low dose corrective SSI. Qualifiers: Diabetes mellitus jail insulin use: without oysterman use Diabetes mellitus complication status: without complication Qualified Code(s): E11.9 - Type 2 diabetes mellitus without complications (7) DVT prophylaxis Current Visit: Yes Status: Acute Assessment and plan: ACS heparin gtt - Time Spent With Patient Total time spent is greater than 50% in coordination of care (as documented) at patient's floor/unit and/or counseling patient: 25 - 35 minutes <Johnathan Infante - Last Filed: 09/08/18 07:22> Date of Encounter: 09/08/18 Internal Medicine - H&P: HPI History of present illness: Ms. Portillo is a 78 year old female All Systems PM: A 10-system review of systems was performed and is negative for pertinent findings except as documented above in the HPI. - Constitutional Vitals: Temp Pulse Resp BP Pulse Ox 97.2 F L 80 16 117/80 97 09/08/18 00:03 09/08/18 06:16 09/08/18 03:31 09/08/18 06:16 09/08/18 06:16 Internal Med - H&P Results - Labs CBC & Chem 7: 09/08/18 04:19 09/08/18 04:19 Labs: Short CBC 09/07/18 09/07/18 09/08/18 Range/Units 09:36 17:00 04:19 WBC 15.2 H 10.1 12.6 H (4.3-11.1) K/mcL Hgb 13.8 12.6 12.1 (11.5-15.4) g/dL Hct 42.8 38.8 37.5 (35.3-44.9) % Plt Count 311 252 245 (140-400) K/mcL Neutrophils # 13.0 H 10.5 H (1.6-8.9) K/mcL BMP 09/07/18 09/08/18 09:36 04:19 Sodium 141 138 Potassium 4.2 4.0 Chloride 105 107 Carbon Dioxide 28 25 BUN 18 12 Creatinine 0.97 0.79 Glucose 315 H 228 H Calcium 9.1 8.1 L Cardiac Enzymes 09/07/18 09/07/18 09/07/18 Range/Units 09:36 15:57 20:53 Troponin I 0.11 H* 1.52 H* 1.57 H* (< 0.04) ng/mL 09/07/18 09/08/18 Range/Units 22:51 04:19 Troponin I 3.62 H* 6.64 H* (< 0.04) ng/mL Liver Function 09/07/18 Range/Units 09:36 Total Bilirubin 0.7 (0.3-1.0) mg/dL AST 16 (13-39) Units/L ALT 18 (7-52) Units/L Alkaline Phosphatase 62 (34-104) Units/L Albumin 4.3 (3.5-5.7) g/dL Urine 09/07/18 Range/Units 09:22 Urine Color Jerome A (Yellow) Urine Clarity Turbid A (Clear) Urine pH 7.0 (5.0-8.0) pH Units Ur Specific [place] 1.025 (1.010-1.025) Urine Protein 100 H (Neg-Trace) mg/dL Urine Glucose (UA) 500 H (Normal) mg/dL - Impressions ITS Impressions Chest X-Ray 09/07/18 09:08 IMPRESSION: No evidence for acute cardiopulmonary process. D/ / Brett Preicado MD / Brett Preciado MD Interpreting Provider: Brett Preciado MD Gallbladder Ultrasound 09/07/18 09:38 IMPRESSION: Cholelithiasis without evidence for acute cholecystitis. Mildly prominent common bile duct measuring up to 7 mm, similar to prior remote CT exam 03/03/2016 and felt likely on the basis of patient age. Clinical and laboratory correlation suggested and if there is clinical concern for biliary obstruction or choledocholithiasis consider further evaluation with MRI/MRCP. Mild pelvicaliectasis to the right kidney, new from 03/03/2016, but without obvious etiology. Consider CT evaluation. Mild diffuse fatty infiltration of the liver. D/ / 09/07/2018 11:36:42 Brett Preciado MD / Josee Piper Interpreting Provider: Brett Preciado MD Abdomen/Pelvis CTA 09/07/18 10:10 IMPRESSION: 1. Right hydronephrosis and hydroureter extending to the level of the urinary bladder, new since the CT scan 03/03/2016. No obstructing stone or mass is identified. This could be due to recently passed stone, reflux, or complicated urinary tract infection. 2. Atherosclerosis within the aorta. No acute abnormality. 3. Emphysema. 4. Anterior mediastinal nodule has mildly enlarged since 2013. The slow growth favors a benign etiology. 5. Cholelithiasis. D/ / Ancelmo Wiggins MD / Ancelmo Wiggins MD Interpreting Provider: Ancelmo Wiggins MD Chest CTA 09/07/18 10:10 IMPRESSION: 1. Right hydronephrosis and hydroureter extending to the level of the urinary bladder, new since the CT scan 03/03/2016. No obstructing stone or mass is identified. This could be due to recently passed stone, reflux, or complicated urinary tract infection. 2. Atherosclerosis within the aorta. No acute abnormality. 3. Emphysema. 4. Anterior mediastinal nodule has mildly enlarged since 2013. The slow growth favors a benign etiology. 5. Cholelithiasis. D/ / Ancelmo Wiggins MD / Ancelmo Wiggins MD Interpreting Provider: Ancelmo Wiggins MD - Time Spent With Patient Total time spent is greater than 50% in coordination of care (as documented) at patient's floor/unit and/or counseling patient: - Attending Attestation I saw and independently assessed this patient and agree with plan per resident Plan NSTEMI. ON heparin drip. Follow up echo. CArdio recs apreciated Acute pyelonephritis with hydronephrosis. Continue levaquin and fluconazole. Urology recommend stenting
--- NOTE | 2018-09-07 14:50 | Urology - Consult Note ---
Date of Encounter: 09/07/18 Time of Encounter: 14:48 - Assessment and Plan (1) Hydronephrosis Current Visit: Yes Status: Acute Assessment and plan: New finding of moderate severe right hydroureteronephrosis down to the level of the bladder. This was not present on previous scan 2015. The patient has new acute onset right abdominal pain along with chest pain. She has a white count of 15. Her urine is consistent with infection. Obstruction in setting of infection is indication for urgent urinary diversion. The patient is eating Jell-O upon arrival to her room for consultation. Thus, cannot add her on for urinary diversion today. Plan: Nothing by mouth after midnight. Will add on to to OR schedule for tomorrow if medically clear from chest pain standpoint. Okay to perform cystoscopy retrograde and stenting in setting of Plavix. Qualifiers: Hydronephrosis type: unspecified Qualified Code(s): N13.30 - Unspecified hydronephrosis (2) Abdominal pain Current Visit: Yes Status: Acute Assessment and plan: Likely secondary to acute hydronephrosis. Plan: Reassess status post stenting. Qualifiers: Abdominal location: right upper quadrant Qualified Code(s): R10.11 - Right upper quadrant pain (3) Pyelonephritis Current Visit: Yes Status: Acute Assessment and plan: Positive urine, abdominal pain, hydronephrosis and white count of 15. Patient seemed medically stable. Indication for urgent urinary diversion. Plan: Add on for stenting tomorrow as detailed above. (4) Anticoagulation adequate Current Visit: Yes Status: Acute Assessment and plan: Patient currently on Plavix. Okay for cystoscopy retrograde stent while on Plavix. Plan: Okay to continue anticoagulation from urology standpoint. Urology CN:TAMI Consult date: 09/07/18 Reason for consult Urology: Hydronephrosis History of present illness: Very pleasant 78-year-old lady reports no significant past urologic history. She is admitted to the emergency department with abdominal and chest pain. As part of her workup she had a CT scan which shows severe hydroureteronephrosis on the right side down to the level of the bladder. Patient reports her pain is of one day duration. She denies exacerbating or remitting factors. She has no gross hematuria. Her urine is consistent with infection. Given obstruction and infection urinary diversion is indicated thus I have been consulted for evaluation and management. She is hemodynamically stable at this time. She is undergoing chest pain workup as well Past Med Surg Social Fam HX - Past Medical History Medical history: diabetes, hyperlipidemia, hypertension, renal disease, TIA Psychiatric history: no psych history - Past Surgical History Surgical History: other Additional surgical history: foot sx - Social History Smoking Status: Former smoker Smokeless Tobacco Status: No Alcohol use: occasionally Drug use: none - Family History Mother Family Member Ethnicity: Non- Living Status: Still Living Hx Family Endocrine Disorder: Yes (Diabetes) Medications and Allergies Aspirin 81 mg PO DAILY 03/03/16 [History] Atorvastatin [Lipitor] 40 mg PO HS 03/03/16 [History] Clopidogrel Bisulfate [Plavix] 75 mg PO DAILY 03/03/16 [History] GlipiZIDE XL (24 HR) [Glucotrol XL] 10 mg PO 0800 03/03/16 [History] Lisinopril [Zestril] 10 mg PO DAILY 03/03/16 [History] Metoprolol [Lopressor] 25 mg PO BID 03/03/16 [History] Amitriptyline [Elavil] 25 mg PO HS 09/07/18 [History] Metformin HCl 1,000 mg PO BID 09/07/18 [History] Allergy/AdvReac Type Severity Reaction Status Date / Time Penicillins Allergy Anaphylaxis Verified 11/12/17 18:02 Review of Systems - Constitutional fever(s) - EENT Nose, mouth and throat: no dry mouth, no headache(s) - Cardiovascular chest pain, no dyspnea - Gastrointestinal abdominal pain, no fecal incontinence - Genitourinary Genitourinary: no dysuria, no urinary urgency - Musculoskeletal no muscle weakness, no numbness - Integumentary no lesions, no rash - Neurological no confusion, no sensory deficit - Psychiatric no anxiety, no confusion - Hematologic/Lymphatic no easy bleeding, no easy bruising - Allergic/Immunologic no throat swelling, no wheezing Exam Initial Vital Signs Temp Pulse Resp BP Pulse Ox 97.5 F L 71 18 179/116 97 09/07/18 08:51 09/07/18 08:51 09/07/18 08:51 09/07/18 08:51 09/07/18 08:51 Urology Results - Labs 09/07/18 09:36 09/07/18 09:36 Abnormal lab results WBC 15.2 K/mcL (4.3-11.1) H 09/07/18 09:36 MPV 9.2 fL (9.4-12.4) L 09/07/18:36 Neutrophils # 13.0 K/mcL (1.6-8.9) H 09/07/18 09:36 Est GFR (Non-Af Amer) 56 (> 60) L 09/07/18:36 Glucose 315 mg/dL (70-105) H 09/07/18:36 Calculated Osmolality 306 (280-300) H 09/07/18:36 Troponin I 0.11 ng/mL (< 0.04) H* 09/07/18:36 Lipase 102 Units/L (11-82) H 09/07/18:36 Urine Color [place] (Yellow) A 09/07/18: Urine Clarity Turbid (Clear) A 09/07/18: Urine Protein 100 mg/dL (Neg-Trace) H 09/07/18 09:22 Urine Glucose (UA) 500 mg/dL (Normal) H 09/07/18 09:22 Urine Ketones Trace mg/dL (Negative) H 09/07/18 09:22 Urine Blood Large (Negative) H 09/07/18 09:22 Urine Nitrite Positive (Negative) A 09/07/18: Urine Bilirubin Small (Negative) H 09/07/18 09:22 Urine Urobilinogen 2.0 mg/dL (Normal) H 09/07/18 09:22 Ur Leukocyte Esterase Small (Negative) H 09/07/18 09:22 Urine Yeast Few per hpf (None Seen) H 09/07/18 09:22 Ur Culture Indicated? YES (NO) A 09/07/18 09: Diabetes panel 09/07/18 Range/Units 09:36 Sodium 141 (136-145) mEq/L Potassium 4.2 (3.5-5.1) mEq/L Chloride 105 (98-107) mEq/L Carbon Dioxide 28 (23-29) mEq/L BUN 18 (8-23) mg/dL Creatinine 0.97 (0.60-1.20) mg/dL Glucose 315 H (70-105) mg/dL Calcium 9.1 (8.6-10.3) mg/dL AST 16 (13-39) Units/L ALT 18 (7-52) Units/L Alkaline Phosphatase 62 (34-104) Units/L Albumin 4.3 (3.5-5.7) g/dL Calcium panel 09/07/18 Range/Units 09:36 Calcium 9.1 (8.6-10.3) mg/dL Albumin 4.3 (3.5-5.7) g/dL Pituitary panel 09/07/18 Range/Units 09:36 Sodium 141 (136-145) mEq/L Potassium 4.2 (3.5-5.1) mEq/L Chloride 105 (98-107) mEq/L Carbon Dioxide 28 (23-29) mEq/L BUN 18 (8-23) mg/dL Creatinine 0.97 (0.60-1.20) mg/dL Glucose 315 H (70-105) mg/dL Calcium 9.1 (8.6-10.3) mg/dL Adrenal panel 09/07/18 Range/Units 09:36 Sodium 141 (136-145) mEq/L Potassium 4.2 (3.5-5.1) mEq/L Chloride 105 (98-107) mEq/L Carbon Dioxide 28 (23-29) mEq/L BUN 18 (8-23) mg/dL Creatinine 0.97 (0.60-1.20) mg/dL Glucose 315 H (70-105) mg/dL Calcium 9.1 (8.6-10.3) mg/dL Total Bilirubin 0.7 (0.3-1.0) mg/dL AST 16 (13-39) Units/L ALT 18 (7-52) Units/L Alkaline Phosphatase 62 (34-104) Units/L Albumin 4.3 (3.5-5.7) g/dL All other labs normal. Consult Discharge Plan - Plan Referrals: Yosi Gonzalez Jr, MD [Primary Care Provider] -
[2018-09-07] MEDS ORDERED: Naloxone 0.4 MG/ML INJ IVP PRN (14:54)
[2018-09-07] MEDS ORDERED: D5% in Water 1,000 ML IVC PRN (15:02)
[2018-09-07] MEDS ORDERED: *HR* Dextrose 50 % in Water (Syg) 50 ML SYRINGE IVP PRN (15:02)
[2018-09-07] MEDS ORDERED: Dextrose Gel 15 GM/37.5 ML TUBE PO PRN ×2 (15:02)
[2018-09-07] MEDS: Fluconazole 100 MG TABLET PO SCH (15:25)
[2018-09-07] MEDS: 0.9 % Sodium Chloride 1,000 ML IVC SCH ×2 (15:25→23:12)
[2018-09-07] MEDS ORDERED: *HR* Heparin 5,000 UNIT/ML VIAL IVP ONE (16:44)
[2018-09-07] MEDS ORDERED: *HR* Heparin 5,000 UNIT/ML VIAL IVP PRN ×2 (16:44)
[2018-09-07] MEDS: Insulin LISPRO 300 UNITS/3 ML VIAL SQ SCH ×2 (16:44→21:19)
[2018-09-07 17:18] LABS: Hematocrit 38.8 % (35.3-44.9); Hemoglobin 12.6 g/dL (11.5-15.4); Mean Corpuscular HGB Conc 32.5 g/dL (31.6-35.5); Mean Corpuscular Hemoglobin 29.2 pg (28.0-33.3); Mean Platelet Volume 8.9 fL (9.4-12.4); Platelet Count 252 K/mcL (140-400); Red Blood Count 4.31 M/mcL (3.82-4.97)
[2018-09-07] MEDS: Heparin 25,000 UNIT/500 ML D5W 25,000 UNIT/500 ML BAG IVC SCH (17:28)
[2018-09-07 17:32] LABS: Prothrombin Time 11.1 Seconds (9.4-12.1)
[2018-09-07 17:33] LABS: Heparin anti-factor XA UFH 0.03 IU/mL (0.30-0.70)
--- NOTE | 2018-09-07 19:05 | Electrocardiograph Report ---
[facility] Test Date: 2018-09-07 Pat Name: Marjorie Portillo Department: [id number] Room: 3B48 Gender: F Coordinator Of Genetic Services: : 1940 Requested By: Yoel Morgan Order Number: [id number] Reading MD: Diamond Bacon Measurements Intervals [place] Rate: 69 P: 51 WA: 192 QRS: -113 QRSD: 134 T: 32 QT: 448 QTc: 480 Interpretive Statements Sinus rhythm RBBB and LAFB Minimal ST elevation, lateral leads POOR R WAVE PROGRESSION Electronically Signed On 09-07-2018 19:03:30 EST by Diamond Bacon
[2018-09-07] MEDS: Insulin DETEMIR 100 UNIT/ML X5UNITS SQ SCH (21:21)
[2018-09-07] MEDS ORDERED: Nitroglycerin 0.4 MG TAB.SUBL SL ONE (22:33)
[2018-09-07] MEDS: Nitroglycerin 0.4 MG TAB.SUBL SL PRN ×2 (22:38→22:43)
[2018-09-07] MEDS ORDERED: Pantoprazole 40 MG VIAL IVP ONE (22:53)
[2018-09-07] MEDS ORDERED: GI Cocktail 40 ML EACH PO ONE (22:53)
[2018-09-07] MEDS ORDERED: *HR* Promethazine 25 MG/ML VIAL IVP PRN (22:54)
[2018-09-07] MEDS ORDERED: *HR* Promethazine 25 MG/ML VIAL ONE (23:00)
[2018-09-07] MEDS: *HR* Morphine 2 MG/ML SYRINGE IVP PRN (23:09)
[2018-09-07] MEDS ORDERED: Perflutren Lipid Microsphere 1.3 ML in 0.9 % Sodium Chloride 8.7 ML IVP ONE (23:54)
[2018-09-08] MEDS: Nitroglycerin 25 MG/250 ML INFUS..BTL IVC SCH ×2 (00:08→08:11)
--- NOTE | 2018-09-08 03:52 | Event Note ---
Addendum entered and electronically signed by Kirk Andrew CNP 09/08/18 18:43: Critical care services for this patient totalled 125 minutes d/t close monitoring of pts. unresolved chest pain requiring initial SL nitroglycerin and eventual nitroglycerin gtt which involved careful monitoring, titration, and monitoring of pts. BP; additional labs and troponin monitoring; control for N/V; pain management for chest pain; notification of abnormal Echocardiogram requiring stat Cardiology consult; and close monitoring and personal visits w/pt. and pts. nurses for evolving plan of care and monitoring for adverse changes. Original Note: Date of Encounter: 09/07/18 Time of Encounter: 21:34 Alerted by patient's nurse YANETH Sanchez of troponin results of 1.57 with prior 1.52. Patient currently on heparin gtt. Patient denied any distress including chest pain or shortness of breath at the time. Instructed nurse to order 1 more troponin 6 hours after last draw. Alerted by pts. nurse at 10:22 the patient was having 8 out of 10 back and chest pain with no orders for nitroglycerin or pain medications.. Instructed nurse to get stat EKG and stat troponin. BP was 129/62 at 19:00. At 22:42, BP was 174/98 with chest pain 8 out of 10 and patient still complaining of 8 out of 10 chest pain after nitroglycerin and was reported as diaphoretic. Instructed nurse to give second nitroglycerin and went to see pt. who was sitting on the side of the bed and complaining of nausea and CP. I asked the pt. if she suffered from GERD and she stated yes. GI cocktail, IVP Protonix, IVP Phenergan ordered. Placing orders, patient vomited twice. Nurse instructed to hold GI cocktail due to nausea and vomiting. IVP Protonix and Phenergan administered along with one-time dose of 2 mg IVP morphine. Shortly afterward patient reported reduction in chest pain of 2 out of 10, relief of nausea and vomiting, and sleepiness. At 23:30, patient's BP was 165/99, HR 88 and Echo was in the room. Nurse instructed to get vital signs every 15 minutes and alerted me of the results. BP was 159/94 and HR 84. Patient's SPO2 found to be in the 80s so oxygen titrated up with improvement to 93%. Alerted by echocardiogram tech at 00:05 of questionable echo. Called electrical and instrument technician who stated she could not tell me what the abnormalities were but that she had reported them to Dr. Cortez. Sent Vocera to Dr. Cortez at 00:25 to report the patient's previous chest pain of 8 out of 10, nausea, vomiting, as well as ad ministration of Phenergan, Protonix, and morphine. Also alerted Dr. Cortez stat troponin was now 3.62, up from 1.57. Also instructed Dr. Cortez of receiving a call from [facility] without being told the results, wishing to know the pertinence of the call to me. Her recommendations were to continue to watch patient overnight and control pain and keep nothing by mouth due to possible a.m. LHC. Alerted by patient's nurse at 03:38 at BP was now 126/83, HR 77, and patient wanting something to drink. Instructed nurse that patient could have water and/or ice chips only. Discussed pt. w/Dr. Diallo who was in agreement w/plan of care. Pt. will continue to be monitored closely overnight.
[2018-09-08 04:41] LABS: Basophils % 0.2 %; Eosinophils % 0.2 %; Hematocrit 37.5 % (35.3-44.9); Hemoglobin 12.1 g/dL (11.5-15.4); Immature Granulocytes % 0.4 % (0-4); Lymphocytes # 1.4 K/mcL (0.6-4.6); Lymphocytes % 10.7 %; Mean Corpuscular HGB Conc 32.3 g/dL (31.6-35.5); Mean Corpuscular Hemoglobin 28.9 pg (28.0-33.3); Mean Corpuscular Volume 89.7 fL (83.0-100.0); Mean Platelet Volume 9.1 fL (9.4-12.4); Monocytes # 0.7 K/mcL (0.0-1.3); Monocytes % 5.4 %; Neutrophils # 10.5 K/mcL (1.6-8.9); Platelet Count 245 K/mcL (140-400); Red Blood Count 4.18 M/mcL (3.82-4.97); Red Cell Distribution Width 13.2 % (11.5-14.5); Segmented Neutrophils % 83.1 %
[2018-09-08 04:53] LABS: BUN/Creatinine Ratio 15 (6-26); Blood Urea Nitrogen 12 mg/dL (8-23); Calcium 8.1 mg/dL (8.6-10.3); Carbon Dioxide 25 mEq/L (23-29); Chloride 107 mEq/L (98-107); Glucose 228 mg/dL (70-105); Osmolality,Calculated 293 (280-300); Sodium 138 mEq/L (136-145); eGFR For Non-African Americans > 60 (> 60)
[2018-09-08] MEDS ORDERED: Lidocaine -MPF 2% 2 ML VIAL ONE (06:55)
[2018-09-08] MEDS ORDERED: *HR* Propofol 200 MG/20 ML VIAL IVP ONE (06:55)
[2018-09-08] MEDS ORDERED: Ondansetron 4 MG/2 ML VIAL ONE (06:55)
[2018-09-08] MEDS ORDERED: *HR* FentaNYL (PF) 100 MCG/2 ML VIAL ONE ×2 (06:55→10:27)
[2018-09-08] MEDS ORDERED: Dexamethasone 4 MG/ML VIAL ONE (06:55)
--- NOTE | 2018-09-08 08:23 | Urology Progress Note ---
Date of Encounter: 09/08/18 Time of Encounter: 08:19 - Assessment and Plan (1) Hydronephrosis Current Visit: Yes Status: Acute Assessment and plan: Plan was for urgent urinary diversion 5 placement of stent today in OR Due to obstruction in setting of what appears to be active urinary tract infection. However, it appears the patient may have had an DC in the wee hours of the morning. Case canceled by anesthesia until cardiac workup complete. Patient is stable and without signs of sepsis. Should patient develop signs of emerging sepsis in the setting of acute DC will require percutaneous nephrostomy placement to decompress the collecting system without subjecting the patient to general anesthesia. Qualifiers: Hydronephrosis type: unspecified Qualified Code(s): N13.30 - Unspecified hydronephrosis (2) Abdominal pain Current Visit: Yes Status: Acute Qualifiers: Abdominal location: right upper quadrant Qualified Code(s): R10.11 - Right upper quadrant pain (3) Pyelonephritis Current Visit: Yes Status: Acute Assessment and plan: Plan was for urgent urinary diversion 5 placement of stent today in OR Due to obstruction in setting of what appears to be active urinary tract infection. However, it appears the patient may have had an DC in the wee hours of the morning. Case canceled by anesthesia until cardiac workup complete. Patient is stable and without signs of sepsis. Should patient develop signs of emerging sepsis in the setting of acute DC will require percutaneous nephrostomy placement to decompress the collecting system without subjecting the patient to general anesthesia. (4) Anticoagulation adequate Current Visit: Yes Status: Acute Progress Note Subjective: other (Only complaint is chest pain) Objective Initial Vital Signs Temp Pulse Resp BP Pulse Ox 97.5 F L 71 18 179/116 97 09/07/18 08:51 09/07/18 08:51 09/07/18 08:51 09/07/18 08:51 09/07/18 08:51 - General physical appearance Present: no distress - Respiratory Present: normal respiratory effort - Abdomen Present: soft - Musculoskeletal Present: normal posture - Psychiatric Present: oriented to time, oriented to person, oriented to place - Labs 09/08/18 04:19 09/08/18 04:19 Diabetes panel 09/07/18 09/08/18 Range/Units 09:36 04:19 Sodium 141 138 (136-145) mEq/L Potassium 4.2 4.0 (3.5-5.1) mEq/L Chloride 105 107 (98-107) mEq/L Carbon Dioxide 28 25 (23-29) mEq/L BUN 18 12 (8-23) mg/dL Creatinine 0.97 0.79 (0.60-1.20) mg/dL Glucose 315 H 228 H (70-105) mg/dL Calcium 9.1 8.1 L (8.6-10.3) mg/dL AST 16 (13-39) Units/L ALT 18 (7-52) Units/L Alkaline Phosphatase 62 (34-104) Units/L Albumin 4.3 (3.5-5.7) g/dL Calcium panel 09/07/18 09/08/18 Range/Units 09:36 04:19 Calcium 9.1 8.1 L (8.6-10.3) mg/dL Albumin 4.3 (3.5-5.7) g/dL Pituitary panel 09/07/18 09/08/18 Range/Units 09:36 04:19 Sodium 141 138 (136-145) mEq/L Potassium 4.2 4.0 (3.5-5.1) mEq/L Chloride 105 107 (98-107) mEq/L Carbon Dioxide 28 25 (23-29) mEq/L BUN 18 12 (8-23) mg/dL Creatinine 0.97 0.79 (0.60-1.20) mg/dL Glucose 315 H 228 H (70-105) mg/dL Calcium 9.1 8.1 L (8.6-10.3) mg/dL Adrenal panel 09/07/18 09/08/18 Range/Units 09:36 04:19 Sodium 141 138 (136-145) mEq/L Potassium 4.2 4.0 (3.5-5.1) mEq/L Chloride 105 107 (98-107) mEq/L Carbon Dioxide 28 25 (23-29) mEq/L BUN 18 12 (8-23) mg/dL Creatinine 0.97 0.79 (0.60-1.20) mg/dL Glucose 315 H 228 H (70-105) mg/dL Calcium 9.1 8.1 L (8.6-10.3) mg/dL Total Bilirubin 0.7 (0.3-1.0) mg/dL AST 16 (13-39) Units/L ALT 18 (7-52) Units/L Alkaline Phosphatase 62 (34-104) Units/L Albumin 4.3 (3.5-5.7) g/dL Consult Discharge Plan - Plan Referrals: Yosi Gonzalez Jr, MD [Primary Care Provider] -
[2018-09-08] MEDS: Aspirin 81 MG TAB.CHEW PO SCH (08:26)
[2018-09-08] MEDS: Fluconazole 100 MG TABLET PO SCH (08:26)
[2018-09-08] MEDS: *HR* Morphine 2 MG/ML SYRINGE IVP PRN (08:28)
[2018-09-08] MEDS: Insulin LISPRO 300 UNITS/3 ML VIAL SQ SCH ×4 (08:30→20:12)
[2018-09-08] MEDS ORDERED: Levofloxacin 750 MG/150 ML 750 MG/150 ML BAG IVPB SCH (09:00)
--- NOTE | 2018-09-08 09:48 | Cardiology Consult Note ---
Addendum entered and electronically signed by Rena Rose CNP 09/08/18 09:56: Code status listed is [id number]; patient is agreeable to be Full code for LHC and for 24 hours post procedure. Original Note: <Rena Rose - Last Filed: 09/08/18 09:52> Date of Encounter: 09/08/18 Time of Encounter: 07:30 Assessment and Plan (1) NSTEMI (non-ST elevated myocardial infarction) Current Visit: Yes Status: Acute Troponin 0.11 ---> 6.64; developed acute chest pain overnight. Symptoms consistent with ACS. Continues to complain of mild chest discomfort upon exam, -01/06. Hx of ID in 2013--LHC demonstrated mild, non-obstructive CAD with preserved LVEF. Continue heparin gtt, NTG (titrate to keep CP free); asa, statin, BB, and plavix. Plan for LHC today; alternatives, risks, and benefits discussed she is agreeable to proceed Echo pending. Cardiac rehab consult. Will continue to follow. (2) Hydronephrosis Current Visit: Yes Status: Acute Urology following. Procedure cancelled this AM d/t AMI. Qualifiers: Hydronephrosis type: unspecified Qualified Code(s): N13.30 - Unspecified hydronephrosis Discussion w patient/family: The assessment and plan as outlined above was discussed with the patient and/or family members who expressed understanding and agreement. All questions were answered. Thank you for involving us in the care of your patient. Please call with any questions. The patient will be discussed and reviewed with Dr. Holland; changes to be made accordingly. History of Present Illness Consult date: 09/08/18 Requesting physician: Kirk Andrew Consult reason: NSTEMI Chief complaint: Chest pain, abdominal pain History of present illness: Ms. Portillo is a 78 year old female with PMHx significant of DMII and prior ID (without stents) who presented to the ED with complaints of right sided abdominal pain that started around 7:30 AM yesterday morning. Reports pain radiated across abdomen and up into chest; reports "every time I took a breath my chest hurt." Upon arrival to the ED, mild troponin elevation was noted. CT scan of abdomen pelvis demonstrated right-sided hydronephorosis, Urology consulted and had initially planned for procedure today. Late yesterday evening patient developed midsternal chest heaviness/squeezing with radiation to her back; associated symptoms included diaphoresis and nausea/vomiting; troponin levels were re-checked and noted to be escalating. She was started on IV heparin/NTG gtt. ECG changes noted. Past Med Surg Social Fam HX - Past Medical History Attestation: Yes The following information was validated with the patient. Source: patient Medical history: diabetes, hyperlipidemia, hypertension, myocardial infarction, renal disease, TIA Psychiatric history: no psych history - Past Surgical History Surgical History: other Additional surgical history: foot sx - Social History Smoking Status: Former smoker Smokeless Tobacco Status: No Alcohol use: occasionally Drug use: none - Family History Mother Family Member Ethnicity: Non- Living Status: Still Living Hx Family Endocrine Disorder: Yes (Diabetes) Father History Unknown: Yes Living Status: Age at : 53 Brother Living Status: Still Living Hx Family Endocrine Disorder: Yes (diabetes) Medications and Allergies Aspirin 81 mg PO DAILY 03/03/16 [History] Atorvastatin [Lipitor] 40 mg PO HS 03/03/16 [History] Clopidogrel Bisulfate [Plavix] 75 mg PO DAILY 03/03/16 [History] GlipiZIDE XL (24 HR) [Glucotrol XL] 10 mg PO 0800 03/03/16 [History] Lisinopril [Zestril] 10 mg PO DAILY 03/03/16 [History] Metoprolol [Lopressor] 25 mg PO BID 03/03/16 [History] Amitriptyline [Elavil] 25 mg PO HS 09/07/18 [History] Metformin HCl 1,000 mg PO BID 09/07/18 [History] Allergy/AdvReac Type Severity Reaction Status Date / Time Penicillins Allergy Anaphylaxis Verified 11/12/17 18:02 All Systems Review: The remainder of the systems were reviewed and are negative - Cardiovascular Cardiovascular: as per HPI Physical Examination Vital Signs, Last 4 Hours Temp Pulse Resp BP Pulse Ox 09/08/18 09:00 78 135/85 09/08/18 08:44 84 135/84 09/08/18 08:20 81 147/80 09/08/18 08:06 83 144/84 09/08/18 07:27 98.3 F 81 16 130/79 95 09/08/18 06:16 80 117/80 97 General: Conversant, No Apparent Distress HEENT: Atraumatic, Normocephaly, Mucus Membranes Moist Neck: No JVD, Normal carotid pulses Cardiac: Reg Rate and Rhythm, Normal S1 and S2, No Murmur Lungs: Normal Breath Sounds, No Wheeze, Rales, Rhonchi Neuro: Alert and responsive, No focal deficits noted Abdomen: Soft, Other (mild tenderness upon exam; BS active x4) Skin: No rashes noted on visualized skin Musculoskeletal: No Chest Wall Tenderness Extremities: No Clubbing, No Cyanosis, No Edema, Normal Pulses Results 09/08/18 04:19 09/08/18 04:19 Lab Results 09/07/18 09/07/18 09/07/18 09:36 09:36 09:36 WBC 15.2 H Hgb 13.8 Hct 42.8 Plt Count 311 INR 0.9 APTT 28.2 Sodium 141 Potassium 4.2 Chloride 105 Carbon Dioxide 28 BUN 18 Creatinine 0.97 Glucose 315 H Calcium 9.1 Total Bilirubin 0.7 AST 16 ALT 18 Alkaline Phosphatase 62 Troponin I 0.11 H* Lipase 102 H 09/07/18 09/07/18 09/07/18 15:57 17:00 17:00 WBC 10.1 Hgb 12.6 Hct 38.8 Plt Count 252 INR 1.0 APTT Sodium Potassium Chloride Carbon Dioxide BUN Creatinine Glucose Calcium Total Bilirubin AST ALT Alkaline Phosphatase Troponin I 1.52 H* Lipase 09/07/18 09/07/18 09/08/18 20:53 22:51 04:19 WBC Hgb Hct Plt Count INR APTT Sodium Potassium Chloride Carbon Dioxide BUN Creatinine Glucose Calcium Total Bilirubin AST ALT Alkaline Phosphatase Troponin I 1.57 H* 3.62 H* 6.64 H* Lipase 09/08/18 09/08/18 04:19 04:19 WBC 12.6 H Hgb 12.1 Hct 37.5 Plt Count 245 INR APTT Sodium 138 Potassium 4.0 Chloride 107 Carbon Dioxide 25 BUN 12 Creatinine 0.79 Glucose 228 H Calcium 8.1 L Total Bilirubin AST ALT Alkaline Phosphatase Troponin I Lipase Active Medications Amitriptyline HCl (Elavil) 25 mg PO HS [facility] Stop: 03/09/19 21:01 Last Admin: 09/07/18 21:21 Dose: 25 mg Aspirin (Aspirin) 81 mg PO DAILY [facility] Stop: 03/10/19 09:01 Last Admin: 09/08/18 08:26 Dose: 81 mg Atorvastatin Calcium (Lipitor) 40 mg PO HS [facility] Stop: 03/09/19 21:01 Last Admin: 09/07/18 21:21 Dose: 40 mg Clopidogrel Bisulfate (Plavix) 75 mg PO DAILY [facility] Stop: 03/10/19 09:01 Last Admin: 09/08/18 08:26 Dose: 75 mg Dextrose/Water (Dextrose 50% (Syg)) 25 ml IVP AD PRN PRN Reason: Hypoglycemia Stop: 03/09/19 15:03 Fluconazole (Diflucan) 200 mg PO DAILY [facility] Stop: 03/09/19 14:46 Last Admin: 09/08/18 08:26 Dose: 200 mg Glucagon (Glucagen) 1 mg IM ONCE PRN PRN Reason: Hypoglycemia Stop: 03/09/19 15:03 Glucose (Gluctose) 15 gm PO ONCE PRN PRN Reason: Hypoglycemia Stop: 03/09/19 15:03 Glucose (Gluctose) 30 gm PO ONCE PRN PRN Reason: Hypoglycemia Stop: 03/09/19 15:03 Heparin Sodium (Porcine) (Heparin) 3,500 unit 60 unit/kg (3500 unit) IVP Q6HR PRN PRN Reason: SEE COMMENTS Stop: 03/09/19 16:45 Heparin Sodium (Porcine) (Heparin) 1,700 unit 30 unit/kg (1700 unit) IVP Q6H PRN PRN Reason: SEE COMMENTS Stop: 03/09/19 16:45 Levofloxacin/Dextrose (Levaquin Premix 750mg/150 Ml) 750 mg in 150 mls @ 100 mls/hr IVPB DAILY [facility]; Protocol Stop: 03/10/19 09:01 Last Admin: 09/08/18 08:27 Dose: 100 mls/hr Dextrose (Dextrose 5%) 1,000 mls @ 100 mls/hr IVC .Q10H PRN PRN Reason: HYPOGLYCEMIA Stop: 03/09/19 15:03 Heparin Sodium/Dextrose (Heparin 25,000 Unit/500 Ml D5w) 25,000 unit in 500 mls @ 13.975 mls/hr IVC .Q24H [facility]; Protocol Stop: 03/09/19 16:46 Last Titration: 09/08/18 05:10 Dose: 9 unit/kg/hr, 10.481 mls/hr Nitroglycerin (Nitroglycerin Premix 25 Mg/250 Ml) 25 mg in 250 mls @ 3 mls/hr IVC .Q24H [facility]; Protocol Stop: 03/09/19 23:46 Last Admin: 09/08/18 08:11 Dose: 10 mcg/min, 6 mls/hr Insulin Detemir (Levemir) 14 unit 0.25 unit/kg (14 unit) SQ HS [facility] Stop: 03/09/19 21:01 Last Admin: 09/07/18 21:21 Dose: 14 unit Insulin Human Lispro (Humalog) 0 units SQ TIDAC [facility]; Protocol Stop: 03/09/19 16:31 Last Admin: 09/08/18 08:30 Dose: Not Given Insulin Human Lispro (Humalog) 0 units SQ HS [facility]; Protocol Stop: 03/09/19 21:01 Last Admin: 09/07/18 21:19 Dose: Not Given Lisinopril (Zestril) 10 mg PO DAILY [facility]; Protocol Stop: 03/10/19 09:01 Last Admin: 09/08/18 08:27 Dose: 10 mg Metoprolol Tartrate (Lopressor) 25 mg PO BID [facility] Stop: 03/09/19 21:01 Last Admin: 09/08/18 08:27 Dose: 25 mg Morphine Sulfate (Morphine Sulfate) 2 mg IVP Q4HR PRN; Protocol PRN Reason: Moderate Pain Stop: 03/09/19 22:52 Last Admin: 09/08/18 08:28 Dose: 2 mg Naloxone HCl (Narcan) 0.4 mg IVP Q2MIN PRN PRN Reason: SEE COMMENTS Stop: 03/09/19 14:55 Nitroglycerin (Nitroglycerin) 0.4 mg SL Q5MIN PRN PRN Reason: Chest Pain Stop: 03/09/19 22:28 Last Admin: 09/07/18 22:43 Dose: 0.4 mg Promethazine HCl (Phenergan) 12.5 mg IVP Q6HR PRN PRN Reason: Nausea And Vomiting Stop: 03/09/19 22:55 Impressions Chest X-Ray 09/07/18 09:08 IMPRESSION: No evidence for acute cardiopulmonary process. D/ / Brett Preciado MD / Brett Preciado MD Interpreting Provider: Brett Preciado MD Gallbladder Ultrasound 09/07/18 09:38 IMPRESSION: Cholelithiasis without evidence for acute cholecystitis. Mildly prominent common bile duct measuring up to 7 mm, similar to prior remote CT exam 03/03/2016 and felt likely on the basis of patient age. Clinical and laboratory correlation suggested and if there is clinical concern for biliary obstruction or choledocholithiasis consider further evaluation with MRI/MRCP. Mild pelvicaliectasis to the right kidney, new from 03/03/2016, but without obvious etiology. Consider CT evaluation. Mild diffuse fatty infiltration of the liver. D/ / 09/07/2018 11:36:42 Brett Preciado MD / Josee Piper Interpreting Provider: Brett Preciado MD Abdomen/Pelvis CTA 09/07/18 10:10 IMPRESSION: 1. Right hydronephrosis and hydroureter extending to the level of the urinary bladder, new since the CT scan 03/03/2016. No obstructing stone or mass is identified. This could be due to recently passed stone, reflux, or complicated urinary tract infection. 2. Atherosclerosis within the aorta. No acute abnormality. 3. Emphysema. 4. Anterior mediastinal nodule has mildly enlarged since 2013. The slow growth favors a benign etiology. 5. Cholelithiasis. D/ / Ancelmo Wiggins MD / Ancelmo Wiggins MD Interpreting Provider: Ancelmo Wiggins MD Chest CTA 09/07/18 10:10 IMPRESSION: 1. Right hydronephrosis and hydroureter extending to the level of the urinary bladder, new since the CT scan 03/03/2016. No obstructing stone or mass is identified. This could be due to recently passed stone, reflux, or complicated urinary tract infection. 2. Atherosclerosis within the aorta. No acute abnormality. 3. Emphysema. 4. Anterior mediastinal nodule has mildly enlarged since 2013. The slow growth favors a benign etiology. 5. Cholelithiasis. D/ / Ancelmo Wiggins MD / Ancelmo Wiggins MD Interpreting Provider: Ancelmo Wiggins MD - Imaging and Cardiology Echo: pending, report reviewed Cardiac cath: report reviewed Other Results: 12 hour tele: avg HR=80 SR. NO events noted. - EKG Interpretation EKG results cardiology: personally reviewed Consult Discharge Plan - Plan Referrals: Yosi Gonzalez Jr, MD [Primary Care Provider] - <Tami Cortez - Last Filed: 09/08/18 11:06> Date of Encounter: 09/08/18 - Attending Attestation I examined this patient and my medical decision-making was reviewed with the [facility]. I agree with the documented findings, disposition and treatment plan as described. Marjorie is a 78-year-old female known to me from the outpatient cardiology office last seen in 2013. At that time, she had a heart catheterization demonstrating mild CAD. She returns today with abdominal discomfort initially followed by chest pressure. A CT scan of the abdomen and pelvis demonstrated right-sided hydronephrosis and urology has been consulted. Incidentally, her troponins have elevated and now are at 8.16. She has been hemodynamically stable during her stay but has described intermittent bouts of chest discomfort. At the bedside, she appears comfortable. She is alert and oriented 3. She is not having chest pain presently. On exam, she has normal heart sounds, no apparent cardiac murmur, normal breath sounds, good upper and lower extremity pulses without edema. Labs reviewed including troponin, renal function, hemoglobin. ECG reviewed demonstrating NSR, RBBB with nonspecific ST abnormalities, more accentuated from a prior ECG but not diagnostic. Impression: 1. NSTEMI: Patient presents with chest pain symptoms, elevated troponin and nonspecific ECG abnormalities consistent with NSTEMI. She had an echocardiogram demonstrating newly reduced LV systolic function and regional wall motion abnormality. I discussed with the patient proceeding with left heart catheterization. The risks, benefits and alternatives including risk of vascular consultations, renal failure, dye reactions, emergency surgery, stroke and even were discussed in detail with the patient and her at bedside. The patient understood those risks and consented to proceed with the procedure. Assessment and Plan Discussion w patient/family: The assessment and plan as outlined above was discussed with the patient and/or family members who expressed understanding and agreement. All questions were ans wered. Thank you for involving us in the care of your patient. Please call with any questions. History of Present Illness History of present illness: Ms. Portillo is a 78 year old female All Systems Review: The remainder of the systems were reviewed and are negative Physical Examination Vital Signs, Last 4 Hours Temp Pulse Resp BP Pulse Ox 09/08/18 09:57 72 99/65 09/08/18 09:00 78 135/85 09/08/18 08:44 84 135/84 09/08/18 08:20 81 147/80 09/08/18 08:06 83 144/84 09/08/18 07:27 98.3 F 81 16 130/79 95 Results 09/08/18 04:19 09/08/18 04:19 Lab Results 09/07/18 09/07/18 09/07/18 09:36 09:36 15:57 WBC 15.2 H Hgb 13.8 Hct 42.8 Plt Count 311 INR 0.9 APTT 28.2 Sodium Potassium Chloride Carbon Dioxide BUN Creatinine Glucose Calcium Troponin I 1.52 H* 09/07/18 09/07/18 09/07/18 17:00 17:00 20:53 WBC 10.1 Hgb 12.6 Hct 38.8 Plt Count 252 INR 1.0 APTT Sodium Potassium Chloride Carbon Dioxide BUN Creatinine Glucose Calcium Troponin I 1.57 H* 09/07/18 09/08/18 09/08/18 22:51 04:19 04:19 WBC 12.6 H Hgb 12.1 Hct 37.5 Plt Count 245 INR APTT Sodium Potassium Chloride Carbon Dioxide BUN Creatinine Glucose Calcium Troponin I 3.62 H* 6.64 H* 09/08/18 09/08/18 04:19 09:55 WBC Hgb Hct Plt Count INR APTT Sodium 138 Potassium 4.0 Chloride 107 Carbon Dioxide 25 BUN 12 Creatinine 0.79 Glucose 228 H Calcium 8.1 L Troponin I 8.16 H*
[2018-09-08] MEDS ORDERED: 0.9 % Sodium Chloride 1,000 ML ONE (10:28)
[2018-09-08] MEDS ORDERED: Nitroglycerin 1,000 MCG/10 ML VIAL IV ONE (10:28)
[2018-09-08] MEDS ORDERED: ISOVUE-370 200 ML INFUS..BTL ONE (10:28)
[2018-09-08] MEDS ORDERED: *HR* Heparin 10,000 UNIT/10 ML VIAL ONE (10:28)
[2018-09-08] MEDS ORDERED: *HR* Midazolam HCl 2 MG/2 ML VIAL ONE (10:28)
[2018-09-08] MEDS ORDERED: Heparin 1,000 UNITS/500 mL 500 ML ONE (10:28)
[2018-09-08] MEDS ORDERED: Verapamil 5 MG/2 ML VIAL ONE (10:29)
--- NOTE | 2018-09-08 10:43 | Pre-Sedation Evaluation ---
Pre-sedation evaluation - Pre-sedation checklist Date of procedure: 09/08/18 Procedure: left heart cath Recent Vitals: Last Vital Signs Temp 98.3 F 09/08/18 07:27 Pulse 72 09/08/18 09:57 Resp 16 09/08/18 07:27 BP 99/65 09/08/18 09:57 Pulse Ox 95 09/08/18 07:27 H&P (including ROS) documented in medical record: Yes Previous reaction to sedatives/anesthetics: No Dietary Status: No solid food in preceding 4 hrs and no liquid in preceding 2 hrs Dentition: dentures removed ASA Classification *see protocol: CLASS II-Mild systemic disease Plan of Care: Pt appropriate candidate for procedure/moderate/conscious sedation, Risks/benefits of procedure/sedation discussed w/ patient/family Cardiac Registry (Cardio Only) - Functional Capacity Functional Capacity: >=4 METS with symptoms - Clincal Frailty Scale Clinical Frailty Scale: Managing Well
--- NOTE | 2018-09-08 12:02 | Invasive Diagnostic Lab Proc ---
Name: Marjorie Portillo Date of Study: 09/08/2018 Date: 1940 Ht: 63.0in Medical Record#: [id number] Age: 78 Wt: 130.29lb Gender: Female BSA: 1.61 Order #: [id number] BMI: 23.09 Physicians Procedure Physician: Pedro Holland MD, [facility] Referring MD: Yosi Gonzalez MD Referring MD: Staff Name Position Time In Wade Whitaker RN Senior Occupational Therapist 11:07 AM Maia Boles RN Monitor 11:07 AM Paige Hernandez RT (R) Scrub 11:07 AM Indications Indication Non-Stemi Procedures Performed Procedure L HRT ARTERY/VENTRICLE ANGIO Pre-Procedure Checklist Informed consent is complete signed and on chart. H&P is on chart. ID band is on and ID verified with patient. Patient NPO for procedure The procedure was described for the patient and questions were answered. Blood Pressure: 99/65 ECG is on chart. Plan of Care Patient will tolerate the procedure without complications. Adequate level of comfort will be maintained. Hemodynamics will remain stable Patient will recover from procedure without complications. Respiratory function will be maintained. Cardiac rhythm will remain stable. Patient temperature will be maintained. Patient and/or family have verbalized understanding of the procedure. Patient Education Intravenous Access Time IV Size Location DC'd Fluid/Drip Rate Units RN 10:26 AM 20g 1 1/4" Patent On Arrival Rt Forearm 0.9NaCl 25 ml/hr Allergies PCN Vital Signs Time BP (mmHg) HR (bpm) O2 Sat. RR (bpm) LOC 10:26 AM 99 / 65 72 95 % 16 5 = Fully awake and oriented or at pre-proc level 11:00 AM / % 5 = Fully awake and oriented or at pre-proc level 11:00 AM / % 4 = Oriented but drowsy 11:15 AM / % 4 = Oriented but drowsy 11:00 AM 102 / 56 69 97 % 19 11:05 AM 79 / 59 77 85 % 10 11:06 AM 85 / 50 72 91 % 15 11:07 AM 90 / 55 73 91 % 9 11:10 AM 87 / 58 72 90 % 25 11:14 AM 88 / 60 68 95 % 19 11:15 AM 94 / 56 70 95 % 17 11:16 AM 88 / 57 75 95 % 14 11:20 AM 95 / 58 75 94 % 9 11:25 AM 90 / 49 68 96 % 10 11:30 AM 82 / 45 65 96 % 8 11:35 AM 78 / 46 72 97 % 11:38 AM 81 / 46 69 97 % Procedural Medications Time Medication Dose Units Method Given By 10:59 AM Oxygen 2 L/min nasal cannula Wade Whitaker RN 11:01 AM Versed 2 mg Intravenous Wade Whitaker RN 11:01 AM Fentanyl 50 mcg Intravenous Wade Whitaker RN 11:03 AM Oxygen 4 L/min nasal cannula Wade Whitaker RN 11:06 AM Oxygen 8 L/min Oxy Mask Wade Whitaker RN 11:11 AM Lidocaine 2% 18 ml Subcutaneous Pedro Holland MD, FACC 11:15 AM Nitroglycerin 50 mcg Intracoronary Pedro Holland MD ASA Classification: CLASS II- Mild systemic disease (i.e. well-controlled diabetes, hypertension, asthma, cigarette smoking) Syed Score Preprocedure Postprocedure Activity 2- Moves 4 extremities sustained head lift Activity 2- Moves 4 extremities sustained head lift Circulation 2- SBP +/= 20 points of pre-anesthetic level Circulation 2- SBP +/= 20 points of pre-anesthetic level Consciousness 2- Awake and alert oriented x 3 Consciousness 2- Awake and alert oriented x 3 O2 Saturation 2- Able to maintain O2 satruation of 92% on room air O2 Saturation 2- Able to maintain O2 satruation of 92% on room air Respiratory 2- Able to deep breathe and cough well Respiratory 2- Able to deep breathe and cough well Total Score 10 Total Score 10 Contrast Agent: Isovue Diagnostic Contrast: 54 ml Total Contrast: 54 ml Fluoro Dose: 1632 mGy Procedure Log Time Note Enter By 10:59 AM Pt arrived to [employer] 2 at 10:59 csmith 10:59 AM Physician arrived 10:59 csmith 10:59 AM ASA Class CLASS II- Mild systemic disease (i.e. well-controlled diabetes, hypertension, asthma, cigarette smoking) csmith 10:59 AM Meet and greet completed csmith 10:59 AM Sign in performed according to hospital policy. Informed consent was obtained. csmith 10:59 AM CathStat 10:59 AM Procedure start 10:59 csmith 10:59 AM Vitals capture started with the following parameters, Patient=Adult, Interval=5 min, Initial Srwyibtt=251 mmHg, Deflation Rate=5 mmHg, Cuff placed on Right Arm 10:59 AM Time: 10:59 Oxygen on at 2 L/min per nasal cannula by Wade Whitaker RN [facility] 10:59 AM Time: :59 Patient comfortable and pain free: Yes csmith 11:00 AM Time: 11:00LOC: 5 = Fully awake and oriented or at pre-proc level csmith 11:00 AM HR=69 bpm, TIQY=844/56 mmhg, SpO2=97.0 %, Resp=19 B/min, Comment=sr w/ bbb 11: AM Time: : Versed 2 mg Intravenous Given by Wade Whitaker RN [facility] 11: AM Time: 11: Fentanyl 50 mcg Intravenous Given by Wade Whitaker RN [facility] 11: AM Clinical Presentation: Non-STEMI csmith 11: AM Time: 11:03 Oxygen on at 4 L/min per nasal cannula by Wade Whitaker RN [facility] 11:05 AM HR=77 bpm, NIBP=79/59 mmhg, SpO2=85.0 %, Resp=10 B/min, Comment=sr w/ bbb 11:06 AM NIBP STAT measurement started. 11:06 AM HR=72 bpm, NIBP=85/50 mmhg, SpO2=91.0 %, Resp=15 B/min, Comment=sr w/ bbb 11:07 AM Time: 11:06 Oxygen on at 8 L/min per Oxy Mask by Wade Whitaker RN [facility] 11:07 AM Case Delayed No, inpatient csmith 11:07 AM Patient charges- Angio tray pack, Navilyst 3mm J, Pulse Oximetry and ACIST tubing and transducer csmith 11:07 AM Wade Whitaker RN Position: Senior Occupational Therapist [facility]: 11:07 [facility] AM NIBP STAT measurement started. 11:07 AM Maia Boles RN Position: Monitor Time in: 11:07 [facility] 11:07 AM Mary, Paige RT (R) Position: Scrub Time in: 11:07 [facility] 11:07 AM Hair removed from procedure site in procedure lab using clippers. Bilateral groin prepped with Chloraprep by Wade Whitaker RN, then patient was draped. Skin intact. csmith 11:07 AM HR=73 bpm, NIBP=90/55 mmhg, SpO2=91.0 %, Resp=9 B/min, Comment=sr w/ bbb 11:08 AM Pressure channel 1 zeroed. 11:10 AM HR=72 bpm, NIBP=87/58 mmhg, SpO2=90.0 %, Resp=25 B/min, Comment=sr w/ bbb 11:11 AM Time out was performed according to hospital policy. Conscious sedation and anesthesia was achieved (see medication log with in this report above) csmith 11:12 AM Time: 11:11 18 ml Lidocaine 2% to right groin Subcutaneous Given by Pedro Holland MD, [facility] 11:12 AM Access obtained by percutaneous puncture. 5Fr 10cm Terumo Radcliff sheath placed in right Femoral artery. [id number] [facility] 11:13 AM NIBP STAT measurement started. 11:14 AM HR=68 bpm, NIBP=88/60 mmhg, SpO2=95.0 %, Resp=19 B/min, Comment=sr w/ bbb 11:14 AM 5Fr FL 4 catheter inserted over the wire [facility] 11:14 AM LCA angiography performed in multiple views. [facility] 11:14 AM Recorded Pressure: Ao, HR=71, Condition=Condition 1 (Aorta) Ao 82/51/64 11:14 AM Time: 10:59 Patient comfortable and pain free: Yes [facility] 11:15 AM Time: 11:00LOC: 4 = Oriented but drowsy [facility] 11:15 AM HR=70 bpm, NIBP=94/56 mmhg, SpO2=95.0 %, Resp=17 B/min, Comment=sr w/ bbb 11:15 AM Time: 11:15 Nitroglycerin 50 mcg Intracoronary Given by Pedro Holland MD [facility] 11:16 AM Catheter removed [facility] 11:16 AM 5Fr FR 4 catheter inserted over the wire [facility] 11:16 AM NIBP STAT measurement started. 11:16 AM HR=75 bpm, NIBP=88/57 mmhg, SpO2=95.0 %, Resp=14 B/min, Comment=sr w/ bbb 11:18 AM Lesion found in 2nd Marginal. Pre Stenosis: 90 Pre YOLANDA Flow: [facility] 11:18 AM RCA angiography performed in multiple views. csmith 11:18 AM Coronary Dominance: right [facility] 11:18 AM Recorded Pressure: Ao, HR=76, Condition=Condition 1 (Aorta) Ao 81/55/68 11:19 AM Lesion found in Proximal RCA. Pre Stenosis: 30 Pre YOLANDA Flow: [facility] 11:19 AM Lesion found in Right PDA. Pre Stenosis: 60 Pre YOLANDA Flow: csmith 11:19 AM Catheter removed csmith 11: AM 5Fr Pigtail catheter inserted over the wire DNC csmith 11:19 AM Lesion found in Proximal LAD. Pre Stenosis: 50 Pre YOLANDA Flow: csmith 11:20 AM HR=75 bpm, NIBP=95/58 mmhg, SpO2=94.0 %, Resp=9 B/min, Comment=sr w/ bbb 11:20 AM Catheter crossed the aortic valve and was selectively placed in the left ventricle. Pressures recorded on pullback for left heart catheterization. csmith 11:20 AM Bolus angiogram of left Ventricle complete: 9 ml/sec for a total of 30 mls csmith 11:20 AM Pressure channel 1 zero failed. 11:20 AM Recorded Pressure: LV, HR=73, Condition=Condition 1 (Left Ventricle) LV 92/17/27 11:22 AM Recorded Pressure: LV, Ao, HR=74, Condition=Condition 1 (Left Ventricle) LV 78/9/20, (Aorta) Ao 91/47/67 11:25 AM HR=68 bpm, NIBP=90/49 mmhg, SpO2=96.0 %, Resp=10 B/min, Comment=sr w/ bbb 11:27 AM physician reviewing films csmith 11:27 AM Catheter removed csmith 11:28 AM Lesion found in 1st Marginal. Pre Stenosis: 65 Pre YOLANDA Flow[facility] 11[facility]30 AM Time: 11:15LOC: 4 = Oriented but drowsy csmith 11:30 AM Time: 11:14 Patient comfortable and pain free: Yes [facility] 11:30 AM HR=65 bpm, NIBP=82/45 mmhg, SpO2=96.0 %, Resp=8 B/min, Comment=sr w/ bbb 11:30 AM Procedure completed at 11:30 09/08/2018 [facility] 11:30 AM Did you address YOLANDA flow and Dominance? Yes [facility] 11:32 AM Sign out completed: Radiation Dose 135 mGy, 1632 cGy/cm2 Fluoro Time: 1.2 Isovue 370 - 200ml contrast 54 ml given by Pedro Holland MD, [facility]. Complications: None. 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 Cardiac Rehab Consult needed: NoConfirmed administered medications: Yes csmith 11:32 AM Isovue 370 - 200ml,1 Bottle(s) used. csmith 11:35 AM HR=72 bpm, NIBP=78/46 mmhg, SpO2=97.0 % 11:36 AM Arterial sheath pulled, Mynx closure device used and was Successful [id number] S/N. csmith 11:36 AM Estimated Blood Loss: minimal csmith 11:36 AM Post ECG Sr w/ bbb csmith 11:37 AM Post Blood Pressure 90/49 csmith 11:37 AM 11:37 Post Pulses Bilateral DP 1+ csmith 11:37 AM Information taught Cardiac Cath and Mynx csmith 11:37 AM NIBP STAT measurement started. 11:37 AM Education needs Procedure, Plan of Care, and Responsibilities of Patient in Care csmith 11:37 AM Learning barriers :None csmith 11:37 AM Education Methods Verbal csmith 11:37 AM Education evaluation Able to repeat information csmith 11:37 AM Site status No bleeding/hematoma - Rt Groin as reported by Sites, Paige RT (R) at 11:37 csmith 11:37 AM Opsite applied csmith 11:38 AM Plavix, Effient or Brilinta given No csmith 11:38 AM Delay to floor No csmith 11:38 AM HR=69 bpm, NIBP=81/46 mmhg, SpO2=97.0 % 11:38 AM Family placed in consult room. csmith 11:38 AM Complications: None csmith 11:44 AM Report given to Camryn WOLFE Pt taken to 2N Room #7. 11:44 csmith 11:44 AM notified of low bp, ordered dopamine gtt csmith 11:45 AM [facility]: [facility] Complications Complication None None Hemodynamics Pressures Site Systolic/A Wave Diastolic/V Wave Mean AO 82 51 64 AO 81 55 68 LV 92 17 27 LV 78 9 20 AO 91 47 67 Post Procedure Information Blood Pressure: 90/49 mmHg Rhythm: Sr w/ bbb Post procedural instructions were given Closure Device Time Device Success/Fail 09/08/2018 11:38:00 AM MynxGrip Successful Site Checks Time Location Status Staff Sheath In? Note 11:37 AM Rt Groin No bleeding/hematoma Sites, Paige RT (R) Pulses Time Site Pre-Procedure Post-Procedure Note 09/08/2018 10:26:00 AM Bilateral DP 2+ 09/08/2018 10:26:00 AM Bilateral radial 2+ 11:37:00 AM Bilateral DP 1+ Updated by Wade Whitaker RN on 09/08/2018 11:46:46 AM electronically signed on 09/08/2018 11:53:27 AM with status of Final
--- NOTE | 2018-09-08 13:07 | Internal Med Progress Note ---
<Tyron Hilton - Last Filed: 09/08/18 14:41> Hospitalist Progress Note - Encounter Date of Encounter: 09/08/18 Time of Encounter: 09:10 - Subjective Interval History: Patient seen and examined lying in bed. Notes chest pain currently 1 out of 10. States overnight pain was 7-8/10. She understands that she is on heparin drip for acute LA, planning for [facility] today by cardiology. Urology, Dr. Vazquez, by early this AM, procedure postponed for AMI. Patient states no acute distress or concerns at this time. No shortness of breath, no abdominal pain. - Exam Vitals: Temp Pulse Resp BP Pulse Ox 98.2 F 69 18 92/88 100 09/08/18 12:00 09/08/18 12:00 09/08/18 12:00 09/08/18 12:00 09/08/18 12:00 Exam: Head exam: Present: atraumatic, normocephalic Eye exam: Present: normal appearance, conjuntiva pink, sclera anicteric Neck exam general surgery: Present: supple, trachea midline. Absent: lymphadenopathy Respiratory exam: Present: CTAB. Absent: accessory muscle use, rales, rhonchi, wheezes Cardiovascular exam: Present: RRR, +S1, +S2. Absent: diastolic murmur, gallop, rubs, systolic murmur GI/Abdominal exam: Present: normal bowel sounds, soft, no peritoneal signs. Absent: distended, tenderness Extremities exam: Present: warm. Absent: calf tenderness, cyanotic Neurological exam: Present: alert, oriented X3, no focal deficits. Absent: facial droop, speech deficit Skin exam: Present: dry, intact - Assessment and Plan (1) NSTEMI (non-ST elevated myocardial infarction) Current Visit: Yes Status: Acute Assessment and Plan: Troponins continued to rise last night and this morning. Patient started on Heparin drip last night. Cardiology was consulted. Planning for [facility] today. Patient has episode of acute chest pain overnight, currently improved. Nitro gtt and morphine started overnight for chest pain Update: Patient went to [facility], found severe one vessel coronary artery disease - OM 2 (<2mm diameter, small vessel) and severe segmental LV Dysfunction, EF 35% in pattern of Takotsubo with no diagnostic thrombus. Cardiology recommended optimal medical therapy and aggressive risk factor modification. Heparin to be restarted at 6pm. (2) Chest pain Current Visit: Yes Status: Acute Assessment and Plan: see above (3) Pyelonephritis Current Visit: Yes Status: Acute Assessment and Plan: Abd pain, hydronephrosis, leukocytosis, and positive UA. Cont Levaquin due to PCN allergy (day 2) and fluconazole (day 2). Urology consulted, wanted to place stent, procedure on hold for AMI. (4) Hydronephrosis Current Visit: Yes Status: Acute Assessment and Plan: Seen on CT. No mass or obstruction seen. Urology consulted recommending cystoscopy and stenting- however on hold for acute LA. (5) Chronic interstitial cystitis with hematuria Current Visit: Yes Status: Chronic Assessment and Plan: On pyridium at home. Will wait to restart pending urology consult. Appreciate urology consult and recommendations. (6) DM (diabetes mellitus), type 2 Current Visit: Yes Status: Chronic Assessment and Plan: Hold home meds, give 14 units basal insulin and start low dose corrective SSI. (7) DVT prophylaxis Current Visit: Yes Status: Acute Assessment and Plan: ACS heparin gtt DVT Prophylaxis: Heparin drip per ACS protocol. - Time Spent with Patient Total time spent is greater than 50% in coordination of care (as documented) at patient's floor/unit and/or counseling patient: less than 15 minutes Plan of Care Discussed with: patient Internal Medicine: Result - Labs CBC & Chem 7: 09/08/18 04:19 09/08/18 04:19 Labs: Short CBC 09/07/18 09/08/18 Range/Units 17:00 04:19 WBC 10.1 12.6 H (4.3-11.1) K/mcL Hgb 12.6 12.1 (11.5-15.4) g/dL Hct 38.8 37.5 (35.3-44.9) % Plt Count 252 245 (140-400) K/mcL Neutrophils # 10.5 H (1.6-8.9) K/mcL BMP 09/08/18 04:19 Sodium 138 Potassium 4.0 Chloride 107 Carbon Dioxide 25 BUN 12 Creatinine 0.79 Glucose 228 H Calcium 8.1 L Cardiac Enzymes 09/07/18 09/07/18 09/07/18 Range/Units 15:57 20:53 22:51 Troponin I 1.52 H* 1.57 H* 3.62 H* (< 0.04) ng/mL 09/08/18 09/08/18 Range/Units 04:19 09:55 Troponin I 6.64 H* 8.16 H* (< 0.04) ng/mL - ABG Interpretation ABG results: PT/INR, D-dimer PT 11.1 Seconds (9.4-12.1) 09/07/18 17:00 - Impressions Impressions Echocardiogram 09/07/18 14:54 Impressions: LVEF 35%. Global and regional LV segmental wall motion abnormalities. Asymmetric septal hypertrophy. No LVOT obstruction. LV diastolic dysfunction with elevated filling pressures. There is no LV thrombus. Definity echo contrast was used. Normal right ventricular structure and function. Mild aortic regurgitation. Mild mitral regurgitation. Mild tricuspid regurgitation. Mild pulmonic regurgitation. No pulmonary hypertension by TR signal obtained. Unable to estimate RVSP, IVC not well visualized. Left Ventricular Wall Motion: Rest Echo Findings The apex, apical inferior, mid inferior, apical anterior, apical septal, mid inferior septal, apical lateral and mid anterior septal anthony were hypokinetic. All other wall segments showed normal motion. Findings: Study Quality * Technically adequate exam. ECG Findings * Sinus rhythm with BBB. Left Ventricle * LVEF 35%. * Asymmetric septal hypertrophy. No LVOT obstruction. * LV diastolic dysfunction with elevated filling pressures. * There is no LV thrombus. * Definity echo contrast was used. Right Ventricle * Normal right ventricular structure and function. Left Atrium * Moderately dilated left atrium. Right Atrium * Normal right atrial size. Aortic Valve * Trileaflet aortic valve. * No aortic stenosis. * Mild aortic regurgitation. Mitral Valve * Normal mitral valve structure. * No mitral stenosis. * Mild mitral regurgitation. Tricuspid Valve * Tricuspid valve not well visualized. * Mild tricuspid regurgitation. Pulmonic Valve * Pulmonic valve is not well visualized. * No pulmonic stenosis. * Mild pulmonic regurgitation. Pulmonary Artery * Pulmonary artery not well visualized. Aorta * Normally sized aortic root. Pericardium * There is no pericardial effusion present. Interatrial Septum * Interatrial septum not well evaluated. IVC * The IVC is not well evaluated. Consult Discharge Plan - Plan Referrals: Yosi Gonzalez Jr, MD [Primary Care Provider] - <Johnathan Infante - Last Filed: 09/08/18 16:01> Hospitalist Progress Note - Encounter Date of Encounter: 09/08/18 - Exam Vitals: Temp Pulse Resp BP Pulse Ox 98.2 F 69 18 92/88 100 09/08/18 12:00 09/08/18 12:00 09/08/18 12:00 09/08/18 12:00 09/08/18 12:00 - Time Spent with Patient Total time spent is greater than 50% in coordination of care (as documented) at patient's floor/unit and/or counseling patient: Internal Medicine: Result - Labs CBC & Chem 7: 09/08/18 04:19 09/08/18 04:19 Labs: Short CBC 09/07/18 09/08/18 Range/Units 17:00 04:19 WBC 10.1 12.6 H (4.3-11.1) K/mcL Hgb 12.6 12.1 (11.5-15.4) g/dL Hct 38.8 37.5 (35.3-44.9) % Plt Count 252 245 (140-400) K/mcL Neutrophils # 10.5 H (1.6-8.9) K/mcL BMP 09/08/18 04:19 Sodium 138 Potassium 4.0 Chloride 107 Carbon Dioxide 25 BUN 12 Creatinine 0.79 Glucose 228 H Calcium 8.1 L Cardiac Enzymes 09/07/18 09/07/18 09/07/18 Range/Units 15:57 20:53 22:51 Troponin I 1.52 H* 1.57 H* 3.62 H* (< 0.04) ng/mL 09/08/18 09/08/18 Range/Units 04:19 09:55 Troponin I 6.64 H* 8.16 H* (< 0.04) ng/mL - ABG Interpretation ABG results: PT/INR, D-dimer PT 11.1 Seconds (9.4-12.1) 09/07/18 17:00 - Impressions Impressions Echocardiogram 09/07/18 14:54 Impressions: LVEF 35%. Global and regional LV segmental wall motion abnormalities. Asymmetric septal hypertrophy. No LVOT obstruction. LV diastolic dysfunction with elevated filling pressures. There is no LV thrombus. Definity echo contrast was used. Normal right ventricular structure and function. Mild aortic regurgitation. Mild mitral regurgitation. Mild tricuspid regurgitation. Mild pulmonic regurgitation. No pulmonary hypertension by TR signal obtained. Unable to estimate RVSP, IVC not well visualized. Left Ventricular Wall Motion: Rest Echo Findings The apex, apical inferior, mid inferior, apical anterior, apical septal, mid inferior septal, apical lateral and mid anterior septal anthony were hypokinetic. All other wall segments showed normal motion. Findings: Study Quality * Technically adequate exam. ECG Findings * Sinus rhythm with BBB. Left Ventricle * LVEF 35%. * Asymmetric septal hypertrophy. No LVOT obstruction. * LV diastolic dysfunction with elevated filling pressures. * There is no LV thrombus. * Definity echo contrast was used. Right Ventricle * Normal right ventricular structure and function. Left Atrium * Moderately dilated left atrium. Right Atrium * Normal right atrial size. Aortic Valve * Trileaflet aortic valve. * No aortic stenosis. * Mild aortic regurgitation. Mitral Valve * Normal mitral valve structure. * No mitral stenosis. * Mild mitral regurgitation. Tricuspid Valve * Tricuspid valve not well visualized. * Mild tricuspid regurgitation. Pulmonic Valve * Pulmonic valve is not well visualized. * No pulmonic stenosis. * Mild pulmonic regurgitation. Pulmonary Artery * Pulmonary artery not well visualized. Aorta * Normally sized aortic root. Pericardium * There is no pericardial effusion present. Interatrial Septum * Interatrial septum not well evaluated. IVC * The IVC is not well evaluated. - Attending Attestation I saw and independently assessed this patient and agree with plan per resident Plan NSTEMI. ON heparin drip. Follow up echo. Cardio plan for cath today Acute pyelonephritis with hydronephrosis. Continue levaquin and fluconazole. Urology recommend stenting <Yobani,Tyron Velarde - Last Filed: 09/08/18 14:41> (2) Chest pain Qualifiers: Chest pain type: chest pain due to myocardial ischemia Ischemic chest pain type: unstable angina pectoris Qualified Code(s): I20.0 - Unstable angina (4) Hydronephrosis Qualifiers: Hydronephrosis type: unspecified Qualified Code(s): N13.30 - Unspecified hydronephrosis (6) DM (diabetes mellitus), type 2 Qualifiers: Diabetes mellitus adjunct faculty for medical terminology insulin use: without chcf use Diabetes mellitus complication status: without complication Qualified Code(s): E11.9 - Type 2 diabetes mellitus without complications
[2018-09-08] MEDS: Heparin 25,000 UNIT/500 ML D5W 25,000 UNIT/500 ML BAG IVC SCH (18:28)
[2018-09-08] MEDS: Insulin DETEMIR 100 UNIT/ML X5UNITS SQ SCH (20:09)
[2018-09-09 00:30] LABS: Basophils % 0.4 %; Eosinophils # 0.2 K/mcL (0.0-0.6); Eosinophils % 1.6 %; Hemoglobin 12.1 g/dL (11.5-15.4); Immature Granulocytes % 0.5 % (0-4); Lymphocytes # 1.9 K/mcL (0.6-4.6); Lymphocytes % 17.8 %; Mean Corpuscular HGB Conc 31.8 g/dL (31.6-35.5); Mean Corpuscular Volume 91.1 fL (83.0-100.0); Mean Platelet Volume 9.2 fL (9.4-12.4); Monocytes # 0.8 K/mcL (0.0-1.3); Monocytes % 7.9 %; Neutrophils # 7.6 K/mcL (1.6-8.9); Platelet Count 237 K/mcL (140-400); Red Blood Count 4.17 M/mcL (3.82-4.97); Red Cell Distribution Width 13.3 % (11.5-14.5); Segmented Neutrophils % 71.8 %
[2018-09-09 00:37] LABS: BUN/Creatinine Ratio 14 (6-26); Blood Urea Nitrogen 13 mg/dL (8-23); Calcium 8.7 mg/dL (8.6-10.3); Carbon Dioxide 26 mEq/L (23-29); Chloride 105 mEq/L (98-107); Glucose 215 mg/dL (70-105); Osmolality,Calculated 291 (280-300); Potassium 3.7 mEq/L (3.5-5.1); Sodium 137 mEq/L (136-145); eGFR For Non-African Americans 59 (> 60)
[2018-09-09] MEDS: Aspirin 81 MG TAB.CHEW PO SCH (08:27)
[2018-09-09] MEDS: Metoprolol XL (24 HR) Succ 25 MG TAB.ER.24H PO SCH (08:27)
[2018-09-09] MEDS: Fluconazole 100 MG TABLET PO SCH (08:31)
[2018-09-09] MEDS: Insulin LISPRO 300 UNITS/3 ML VIAL SQ SCH ×4 (08:32→21:01)
--- NOTE | 2018-09-09 09:17 | Internal Med Progress Note ---
<Tyron Hilton - Last Filed: 09/09/18 13:49> Hospitalist Progress Note - Encounter Date of Encounter: 09/09/18 Time of Encounter: 09:15 - Subjective Interval History: Patient seen and examined lying in bed. Denies chest pain, notes chest feels funny today. Notes cath insertion site at groin in sore, but no other issues wi th that. Patient states no acute distress or concerns at this time. No shortness of breath, no abdominal pain. - Exam Vitals: Temp Pulse Resp BP Pulse Ox 98.2 F 71 18 129/69 94 09/09/18 07:42 09/09/18 07:42 09/09/18 07:42 09/09/18 07:42 09/09/18 07:42 Exam: Head exam: Present: atraumatic, normocephalic Eye exam: Present: normal appearance, conjuntiva pink, sclera anicteric Neck exam general surgery: Present: supple, trachea midline. Absent: lymphadenopathy Respiratory exam: Present: CTAB. Absent: accessory muscle use, rales, rhonchi, wheezes Cardiovascular exam: Present: RRR, +S1, +S2. Absent: diastolic murmur, gallop, rubs, systolic murmur GI/Abdominal exam: Present: normal bowel sounds, soft, no peritoneal signs. Absent: distended, tenderness Extremities exam: Present: warm. Absent: calf tenderness, cyanotic Neurological exam: Present: alert, oriented X3, no focal deficits. Absent: fac ial droop, speech deficit Skin exam: Present: dry, intact - Assessment and Plan (1) NSTEMI (non-ST elevated myocardial infarction) Current Visit: Yes Status: Acute Assessment and Plan: S/P [facility] yesterday--Severe one vessel CAD - OM 2 (<2mm diameter, small vessel) There is severe segmental LV Dysfunction EF 35% in pattern of Takotsubo with no diagnostic thrombus. TTE EF 35%. Global and regional LV segmental wall motion abnormalities. Asymmetric septal hypertrophy. No LVOT obstruction. LV diastolic dysfunction with elevated filling pressures. There is no LV thrombus. Definity echo contrast was used. Mild AR, MR, TR, CT. Cardiology recommend DAPT (ASA and Plavix) given peak troponin of 8.16. Continue Statin, BB, ACEi. Cardiology outpt follow-up in 1 week. (2) Nonischemic cardiomyopathy Current Visit: Yes Status: Acute Assessment and Plan: TTE EF 35%. Global and regional LV segmental wall motion abnormalities. No LV thrombus. S/P [facility] yesterday--There is severe one vessel coronary artery disease - OM 2 (<2mm diameter, small vessel) There is severe segmental LV Dysfunction EF 35% in pattern of Takotsubo with no diagnostic thrombus. Evaluated by Cardiology. Continue BB and ACEi. Outpt cardiology follow up. Recheck TTE as outpt in 3 months to re-evaluate EF. (3) Chest pain Current Visit: Yes Status: Resolved Assessment and Plan: see above. (4) Pyelonephritis Current Visit: Yes Status: Acute Assessment and Plan: Abd pain, hydronephrosis, leukocytosis, and positive UA on presentation. On Levaquin due to PCN allergy (day 3) and fluconazole (day 3-will stop). Pansensitive E.coli on formal culture. Plan for urinary diversion via stenting tomorrow. Cardiology consulted for surgical clearance: Pt is intermediate risk from a cardiac standpoint to proceed with urinary diversion via stenting. Recommend continuing ASA, Plavix, Statin, BB, ACEi throughout the perioperative period. (5) Hydronephrosis Current Visit: Yes Status: Acute Assessment and Plan: See above. Urinary stenting postponed for NSTEMI and surgical clearance. (6) Chronic interstitial cystitis with hematuria Current Visit: Yes Status: Chronic (7) DM (diabetes mellitus), type 2 Current Visit: Yes Status: Chronic Assessment and Plan: Hold home meds, give 14 units basal insulin and start low dose corrective SSI. (8) DVT prophylaxis Current Visit: Yes Status: Acute Assessment and Plan: sq heparin DVT Prophylaxis: SQ heparin - Time Spent with Patient Total time spent is greater than 50% in coordination of care (as documented) at patient's floor/unit and/or counseling patient: less than 15 minutes Plan of Care Discussed with: patient Internal Medicine: Result - Labs CBC & Chem 7: 09/09/18 00:04 09/09/18 00:04 Labs: Short CBC 09/09/18 Range/Units 00:04 WBC 10.6 (4.3-11.1) K/mcL Hgb 12.1 (11.5-15.4) g/dL Hct 38.0 (35.3-44.9) % Plt Count 237 (140-400) K/mcL Neutrophils # 7.6 (1.6-8.9) K/mcL BMP 09/09/18 00:04 Sodium 137 Potassium 3.7 Chloride 105 Carbon Dioxide 26 BUN 13 Creatinine 0.93 Glucose 215 H Calcium 8.7 Cardiac Enzymes 09/08/18 Range/Units 09:55 Troponin I 8.16 H* (< 0.04) ng/mL - ABG Interpretation ABG results: PT/INR, D-dimer PT 11.1 Seconds (9.4-12.1) 09/07/18 17:00 - Impressions Impressions Echocardiogram 09/07/18 14:54 Impressions: LVEF 35%. Global and regional LV segmental wall motion abnormalities. Asymmetric septal hypertrophy. No LVOT obstruction. LV diastolic dysfunction with elevated filling pressures. There is no LV thrombus. Definity echo contrast was used. Normal right ventricular structure and function. Mild aortic regurgitation. Mild mitral regurgitation. Mild tricuspid regurgitation. Mild pulmonic regurgitation. No pulmonary hypertension by TR signal obtained. Unable to estimate RVSP, IVC not well visualized. Left Ventricular Wall Motion: Rest Echo Findings The apex, apical inferior, mid inferior, apical anterior, apical septal, mid inferior septal, apical lateral and mid anterior septal anthony were hypokinetic. All other wall segments showed normal motion. Findings: Study Quality * Technically adequate exam. ECG Findings * Sinus rhythm with BBB. Left Ventricle * LVEF 35%. * Asymmetric septal hypertrophy. No LVOT obstruction. * LV diastolic dysfunction with elevated filling pressures. * There is no LV thrombus. * Definity echo contrast was used. Right Ventricle * Normal right ventricular structure and function. Left Atrium * Moderately dilated left atrium. Right Atrium * Normal right atrial size. Aortic Valve * Trileaflet aortic valve. * No aortic stenosis. * Mild aortic regurgitation. Mitral Valve * Normal mitral valve structure. * No mitral stenosis. * Mild mitral regurgitation. Tricuspid Valve * Tricuspid valve not well visualized. * Mild tricuspid regurgitation. Pulmonic Valve * Pulmonic valve is not well visualized. * No pulmonic stenosis. * Mild pulmonic regurgitation. Pulmonary Artery * Pulmonary artery not well visualized. Aorta * Normally sized aortic root. Pericardium * There is no pericardial effusion present. Interatrial Septum * Interatrial septum not well evaluated. IVC * The IVC is not well evaluated. Consult Discharge Plan - Plan Additional Instructions: RISK FACTORS: STOP SMOKING: If you smoke, STOP. Smoking or tobacco use significantly increases your risk of heart disease because nicotine causes the arteries to narrow or constrict. It also causes fats to stick to the artery. Your chances of having a heart attack are greatly increased if you continue to smoke. For more information, call the education line for smoking cessation 8-230-ULQNMJE EAT A LOW FAT/CHOLESTEROL/SODIUM DIET: This diet may help reduce your chances of having a heart attack. LIFTING: Avoid lifting anything more than 10 pounds for 5-7 days Prior to straining, laughing, sneezing and/or coughing, apply manual pressure directly over insertion site. ACTIVITY: You may walk or climb stairs as tolerated You can resume sexual activity as tolerated In general, you are encouraged to engage in a minimum of 30 minutes or more of moderate intensity physical activity, such as brisk walking, daily or at least 3-4 times weekly BATHING Do not submerge the site into water (bath tub, hot tub, swimming pool) for 1 week. This can be a source for infection into the blood stream. You may shower after 24 hours SITE CARE: After 24 hours, you may remove the dressing and leave the site open to air. Keep the site clean and dry. Clean gently and pat dry. You can expect bruising and tenderness that gradually resolve within a week or two. Return to work as instructed per your physician Resume driving as instructed per physician Keep all scheduled follow up appointments Resume medications as instructed IMPORTANT: If prescribed a Platelet Aggregation Inhibitor such as, Plavix, Brilinta or Effient: Duration of therapy is minimum one year These medications are often used in combination with Aspirin in prevention of future heart attacks Never discontinue unless consult with your Speech And Hearing Director STROKE (CVA) Risk factors for a stroke are: Age, cigarette smoking, diabetes, excessive alcohol consumption, family history, high blood pressure, overweight, physical inactivity, prior stroke, heart attack, diagnosis of carotid artery stenosis or other artery disease. Warning signs: Sudden numbness or weakness of the face, arm or leg; especially on one side of the body, sudden confusion, trouble speaking or understanding, sudden trouble seeing in one or both eyes, sudden trouble walking, dizziness, loss of balance or coordination, sudden severe headache with no cause. Call 911 or go to the Emergency Room. CONGESTIVE HEART FAILURE: If you have been diagnosed with Congestive Heart Failure (CHF) and your symptoms return, make an appointment with your physician Weigh yourself daily. Notify your physician if you have a weight gain of two or more pounds in one day or five or more pounds in one week. If you experience any difficulty breathing, please call 911 BLEEDING: Although the risk of bleeding is minimal, it can happen. If you have any bleeding from the site, apply firm pressure above the puncture site for 10-15 minutes. If the bleeding does not stop, continue manual pressure and call 911 Contact your physician if: You develop a fever greater than 101 degrees Fahrenheit Your site becomes reddened or has any drainage You have an increase in pain or burning at the site or if a large knot forms at the site. If you experience chest pain, shortness of breath, dizziness, or extreme tiredness, stop the activity and rest. Please notify your physicians office if you experience any of these symptoms and they are not relieved by rest please call 911! Referrals: Yosi Gonzalez Jr, MD [Primary Care Provider] - <Johnathan Infante - Last Filed: 09/09/18 15:28> Hospitalist Progress Note - Encounter Date of Encounter: 09/09/18 - Exam Vitals: Temp Pulse Resp BP Pulse Ox 98.3 F 72 18 110/75 95 09/09/18 11:23 09/09/18 11:23 09/09/18 11:23 09/09/18 11:23 09/09/18 11:23 - Time Spent with Patient Total time spent is greater than 50% in coordination of care (as documented) at patient's floor/unit and/or counseling patient: Internal Medicine: Result - Labs CBC & Chem 7: 09/09/18 00:04 09/09/18 00:04 Labs: Short CBC 09/09/18 Range/Units 00:04 WBC 10.6 (4.3-11.1) K/mcL Hgb 12.1 (11.5-15.4) g/dL Hct 38.0 (35.3-44.9) % Plt Count 237 (140-400) K/mcL Neutrophils # 7.6 (1.6-8.9) K/mcL BMP 09/09/18 00:04 Sodium 137 Potassium 3.7 Chloride 105 Carbon Dioxide 26 BUN 13 Creatinine 0.93 Glucose 215 H Calcium 8.7 - ABG Interpretation ABG results: PT/INR, D-dimer PT 11.1 Seconds (9.4-12.1) 09/07/18 17:00 - Attending Attestation I saw and independently assessed this patient and agree with plan per resident Plan NSTEMI. Cath showed likely takotsubo cardiomyopathy with severe segmental LV dysfunction. No stents placed. Continue aggressive medical intervention Acute pyelonephritis with hydronephrosis. Continue levaquin . Urology plan for stenting in am <De Beque,[facility] - Last Filed: 09/09/18 13:49> (3) Chest pain Qualifiers: Chest pain type: chest pain due to myocardial ischemia Ischemic chest pain type: unstable angina pectoris Qualified Code(s): I20.0 - Unstable angina (5) Hydronephrosis Qualifiers: Hydronephrosis type: unspecified Qualified Code(s): N13.30 - Unspecified hydronephrosis (7) DM (diabetes mellitus), type 2 Qualifiers: Diabetes mellitus fci insulin use: without fci use Diabetes mellitus complication status: without complication Qualified Code(s): E11.9 - Type 2 diabetes mellitus without complications
--- NOTE | 2018-09-09 09:39 | Cardiology Progress Note ---
Date of Encounter: 09/09/18 Time of Encounter: 09:37 Assessment and Plan (1) NSTEMI (non-ST elevated myocardial infarction) Current Visit: Yes Status: Acute Troponin peak 8.16. S/P LHC yesterday--Severe one vessel CAD - OM 2 (<2mm diameter, small vessel) There is severe segmental LV Dysfunction EF 35% in pattern of Takotsubo with no diagnostic thrombus. TTE EF 35%. Global and regional LV segmental wall motion abnormalities. Asymmetric septal hypertrophy. No LVOT obstruction. LV diastolic dysfunction with elevated filling pressures. There is no LV thrombus. Definity echo contrast was used. Mild AR, MR, TR, WI. Pt chest pain free this AM. Recommend DAPT (ASA and Plavix) given peak troponin of 8.16. Continue Statin, BB, ACEi. Stop heparin gtt. Right femoral access site healing well. No bleeding, hematoma or ecchymosis noted. Restrictions discussed. Cardiology signing off. Reconsult PRN. Will coordinate outpt follow-up in 1 week. (2) Hydronephrosis Current Visit: Yes Status: Acute Urology following. Procedure cancelled yesterday AM d/t AMI. Qualifiers: Hydronephrosis type: unspecified Qualified Code(s): N13.30 - Unspecified hydronephrosis (3) Nonischemic cardiomyopathy Current Visit: Yes Status: Acute TTE EF 35%. Global and regional LV segmental wall motion abnormalities. No LV thrombus. S/P LHC yesterday--There is severe one vessel coronary artery disease - OM 2 (<2mm diameter, small vessel) There is severe segmental LV Dysfunction EF 35% in pattern of Takotsubo with no diagnostic thrombus. Euvolemic on exam. Continue BB and ACEi. Recheck TTE as outpt in 3 months to re-evaluate EF. Discussion w patient/family: The assessment and plan as outlined above was discussed with the patient and/or family members who expressed understanding and agreement. All questions were answered. Thank you for involving us in the care of your patient. Please call with any questions. I will discuss all the above with Dr. Cortez and make changes as necessary. Subjective Principal diagnosis: NSTEMI Interval history: Pt denies chest pain overnight. S/P LHC yesterday--There is severe one vessel coronary artery disease - OM 2 (<2mm diameter, small vessel) There is severe segmental LV Dysfunction EF 35% in pattern of Takotsubo with no diagnostic thr ombus. TTE EF 35%. Global and regional LV segmental wall motion abnormalities. Asymmetric septal hypertrophy. No LVOT obstruction. LV diastolic dysfunction with elevated filling pressures. There is no LV thrombus. Definity echo contrast was used. Mild AR, MR, TR, WI. Objective Vital Signs, Last 4 Hours Temp Pulse Resp BP Pulse Ox 09/09/18 07:42 98.2 F 71 18 129/69 94 Vital Signs Temp Pulse Pulse Resp BP Pulse Ox 09/09/18 07:42 98.2 F 71 18 129/69 94 09/09/18 03:53 98.4 F 77 20 99/57 96 09/09/18 00:00 72 09/08/18 23:51 98.5 F 91 20 107/60 97 09/08/18 20:05 80 09/08/18 19:55 98.5 F 111 20 125/70 90 09/08/18 17:30 78 118/66 09/08/18 16:30 74 87/78 09/08/18 16:11 98.2 F 70 18 87/65 92 09/08/18 15:30 70 91/50 09/08/18 14:30 74 89/55 09/08/18 14:00 72 92/61 09/08/18 13:30 76 102/65 09/08/18 13:00 66 100/61 09/08/18 12:45 66 91/57 09/08/18 12:30 68 93/61 09/08/18 12:15 69 84/56 09/08/18 12:00 98.2 F 69 69 16 92/58 98 09/08/18 09:57 72 99/65 Intake and Output 09/08/18 09/09/18 09/09/18 23:59 07:59 15:59 Intake Total 501.4 / 501.4 630 / 630 Output Total 800 / 800 300 / 300 Balance -298.6 / -298.6 -232 / -232 630 / 630 Intake: IV Fluids 381.4 / 381.4 150 / 150 Heparin 25,000 UNIT/500 ML D5W 381.4 / 381.4 150 / 150 25,000 unit In 500 ml @ 12 UNIT /KG/HR 13.975 mls/hr IVC .Q24H REPLACED BY [facility] Rx#:[id number] Oral 120 / 120 480 / 480 Output: Urine 800 / 800 300 / 300 Other: Meal Dinner Breakfast Percent of Meal Consumed 60% 100% Weight 60.1 kg Blood Glucose* 179 151 Patient Weight 09/09/18 23:59 Weight 60.1 kg General: Conversant, No Apparent Distress HEENT: Atraumatic, Normocephaly, Mucus Membranes Moist Neck: No JVD, Normal carotid pulses Cardiac: Reg Rate and Rhythm, Normal S1 and S2, No Murmur Lungs: Normal Breath Sounds, No Wheeze, Rales, Rhonchi Neuro: Alert and responsive, No focal deficits noted Abdomen: Soft, Non-Tender Skin: Other (right femoral access site healing well. No bleeding, hematoma or ecchymosis noted.) Musculoskeletal: No Chest Wall Tenderness Extremities: No Clubbing, No Cyanosis, No Edema, Normal Pulses Results 09/09/18 00:04 09/09/18 00:04 Lab Results 09/08/18 09/09/18 09/09/18 09:55 00:04 00:04 WBC 10.6 Hgb 12.1 Hct 38.0 Plt Count 237 Sodium 137 Potassium 3.7 Chloride 105 Carbon Dioxide 26 BUN 13 Creatinine 0.93 Glucose 215 H Calcium 8.7 Troponin I 8.16 H* Short CBC 09/09/18 Range/Units 00:04 WBC 10.6 (4.3-11.1) K/mcL Hgb 12.1 (11.5-15.4) g/dL Hct 38.0 (35.3-44.9) % Plt Count 237 (140-400) K/mcL Neutrophils # 7.6 (1.6-8.9) K/mcL BMP 09/09/18 Range/Units 00:04 Sodium 137 (136-145) mEq/L Potassium 3.7 (3.5-5.1) mEq/L Chloride 105 (98-107) mEq/L Carbon Dioxide 26 (23-29) mEq/L BUN 13 (8-23) mg/dL Creatinine 0.93 (0.60-1.20) mg/dL Glucose 215 H (70-105) mg/dL Calcium 8.7 (8.6-10.3) mg/dL Cardiac Enzymes 09/08/18 Range/Units 09:55 Troponin I 8.16 H* (< 0.04) ng/mL Impressions Echocardiogram 09/07/18 14:54 Impressions: LVEF 35%. Global and regional LV segmental wall motion abnormalities. Asymmetric septal hypertrophy. No LVOT obstruction. LV diastolic dysfunction with elevated filling pressures. There is no LV thrombus. Definity echo contrast was used. Normal right ventricular structure and function. Mild aortic regurgitation. Mild mitral regurgitation. Mild tricuspid regurgitation. Mild pulmonic regurgitation. No pulmonary hypertension by TR signal obtained. Unable to estimate RVSP, IVC not well visualized. Left Ventricular Wall Motion: Rest Echo Findings The apex, apical inferior, mid inferior, apical anterior, apical septal, mid inferior septal, apical lateral and mid anterior septal anthony were hypokinetic. All other wall segments showed normal motion. Findings: Study Quality * Technically adequate exam. ECG Findings * Sinus rhythm with BBB. Left Ventricle * LVEF 35%. * Asymmetric septal hypertrophy. No LVOT obstruction. * LV diastolic dysfunction with elevated filling pressures. * There is no LV thrombus. * Definity echo contrast was used. Right Ventricle * Normal right ventricular structure and function. Left Atrium * Moderately dilated left atrium. Right Atrium * Normal right atrial size. Aortic Valve * Trileaflet aortic valve. * No aortic stenosis. * Mild aortic regurgitation. Mitral Valve * Normal mitral valve structure. * No mitral stenosis. * Mild mitral regurgitation. Tricuspid Valve * Tricuspid valve not well visualized. * Mild tricuspid regurgitation. Pulmonic Valve * Pulmonic valve is not well visualized. * No pulmonic stenosis. * Mild pulmonic regurgitation. Pulmonary Artery * Pulmonary artery not well visualized. Aorta * Normally sized aortic root. Pericardium * There is no pericardial effusion present. Interatrial Septum * Interatrial septum not well evaluated. IVC * The IVC is not well evaluated. Active Medications Amitriptyline HCl (Elavil) 25 mg PO HS REPLACED BY [facility] Stop: 03/09/19 21:01 Last Admin: 09/08/18 20:08 Dose: 25 mg Aspirin (Aspirin) 81 mg PO DAILY [facility] Stop: 03/10/19 09:01 Last Admin: 09/09/18 08:27 Dose: 81 mg Atorvastatin Calcium (Lipitor) 40 mg PO HS REPLACED BY [facility] Stop: 03/09/19 21:01 Last Admin: 09/08/18 20:08 Dose: 40 mg Clopidogrel Bisulfate (Plavix) 75 mg PO DAILY [facility] Stop: 03/10/19 09:01 Last Admin: 09/09/18 08:27 Dose: 75 mg Dextrose/Water (Dextrose 50% (Syg)) 25 ml IVP AD PRN PRN Reason: Hypoglycemia Stop: 03/09/19 15:03 Fluconazole (Diflucan) 200 mg PO DAILY [facility] Stop: 03/09/19 14:46 Last Admin: 09/09/18 08:31 Dose: 200 mg Glucagon (Glucagen) 1 mg IM ONCE PRN PRN Reason: Hypoglycemia Stop: 03/09/19 15:03 Glucose (Gluctose) 15 gm PO ONCE PRN PRN Reason: Hypoglycemia Stop: 03/09/19 15:03 Glucose (Gluctose) 30 gm PO ONCE PRN PRN Reason: Hypoglycemia Stop: 03/09/19 15:03 Heparin Sodium (Porcine) (Heparin) 3,500 unit 60 unit/kg (3500 unit) IVP Q6HR PRN PRN Reason: SEE COMMENTS Stop: 03/09/19 16:45 Heparin Sodium (Porcine) (Heparin) 1,700 unit 30 unit/kg (1700 unit) IVP Q6H PRN PRN Reason: SEE COMMENTS Stop: 03/09/19 16:45 Last Admin: 09/09/18 01:11 Dose: 1,700 unit Dextrose (Dextrose 5%) 1,000 mls @ 100 mls/hr IVC .Q10H PRN PRN Reason: HYPOGLYCEMIA Stop: 03/09/19 15:03 Heparin Sodium/Dextrose (Heparin 25,000 Unit/500 Ml D5w) 25,000 unit in 500 mls @ 13.975 mls/hr IVC .Q24H REPLACED BY [facility]; Protocol Stop: 03/09/19 16:46 Last Titration: 09/09/18 09:25 Dose: 11.06 unit/kg/hr, 12.881 mls/hr Nitroglycerin (Nitroglycerin Premix 25 Mg/250 Ml) 25 mg in 250 mls @ 3 mls/hr IVC .Q24H [facility]; Protocol Stop: 03/09/19 23:46 Last Titration: 09/08/18 10:06 Dose: 5 mcg/min, 3 mls/hr Dopamine HCl/Dextrose (Dopamine Premix 400mg/250ml) 400 mg in 250 mls @ 11.081 mls/hr IVC .[id number] REPLACED BY [facility]; Protocol Stop: 03/10/19 12:01 Levofloxacin/Dextrose (Levaquin Premix 750mg/150 Ml) 750 mg in 150 mls @ 100 mls/hr IVPB Q48H REPLACED BY [facility]; Protocol Stop: 03/12/19 09:01 Insulin Detemir (Levemir) 14 unit 0.25 unit/kg (14 unit) SQ HS REPLACED BY [facility] Stop: 03/09/19 21:01 Last Admin: 09/08/18 20:09 Dose: 14 unit Insulin Human Lispro (Humalog) 0 units SQ TIDAC REPLACED BY [facility]; Protocol Stop: 03/09/19 16:31 Last Admin: 09/09/18 08:32 Dose: 2 units Insulin Human Lispro (Humalog) 0 units SQ HS REPLACED BY [facility]; Protocol Stop: 03/09/19 21:01 Last Admin: 09/08/18 20:12 Dose: Not Given Lisinopril (Zestril) 10 mg PO DAILY REPLACED BY [facility]; Protocol Stop: 03/10/19 09:01 Last Admin: 09/09/18 08:27 Dose: 10 mg Metoprolol Succinate (Toprol Xl) 25 mg PO DAILY REPLACED BY [facility] Stop: 03/11/19 09:01 Last Admin: 09/09/18 08:27 Dose: 25 mg Metoprolol Tartrate (Lopressor) 25 mg PO BID REPLACED BY [facility] Stop: 03/09/19 23:59 Last Admin: 09/09/18 08:31 Dose: Not Given Morphine Sulfate (Morphine Sulfate) 2 mg IVP Q4HR PRN; Protocol PRN Reason: Moderate Pain Stop: 03/09/19 22:52 Last Admin: 09/08/18 08:28 Dose: 2 mg Naloxone HCl (Narcan) 0.4 mg IVP Q2MIN PRN PRN Reason: SEE COMMENTS Stop: 03/09/19 14:55 Nitroglycerin (Nitroglycerin) 0.4 mg SL Q5MIN PRN PRN Reason: Chest Pain Stop: 03/09/19 22:28 Last Admin: 09/07/18 22:43 Dose: 0.4 mg Promethazine HCl (Phenergan) 12.5 mg IVP Q6HR PRN PRN Reason: Nausea And Vomiting Stop: 03/09/19 22:55 - Imaging and Cardiology Echo: report reviewed Cardiac cath: report reviewed - EKG Interpretation EKG results cardiology: other (12 hr tele AVG HR 77, SR, no significant pauses or arrhythmias noted.) Consult Discharge Plan - Plan Additional Instructions: RISK FACTORS: STOP SMOKING: If you smoke, STOP. Smoking or tobacco use significantly i ncreases your risk of heart disease because nicotine causes the arteries to narrow or constrict. It also causes fats to stick to the artery. Your chances of having a heart attack are greatly increased if you continue to smoke. For more information, call the education line for smoking cessation 8-391-BBIFUEG EAT A LOW FAT/CHOLESTEROL/SODIUM DIET: This diet may help reduce your chances of having a heart attack. LIFTING: Avoid lifting anything more than 10 pounds for 5-7 days Prior to straining, laughing, sneezing and/or coughing, apply manual pressure directly over insertion site. ACTIVITY: You may walk or climb stairs as tolerated You can resume sexual activity as tolerated In general, you are encouraged to engage in a minimum of 30 minutes or more of moderate intensity physical activity, such as brisk walking, daily or at least 3 -4 times weekly BATHING Do not submerge the site into water (bath tub, hot tub, swimming pool) for 1 week. This can be a source for infection into the blood stream. You may shower after 24 hours SITE CARE: After 24 hours, you may remove the dressing and leave the site open to air. Keep the site clean and dry. Clean gently and pat dry. You can expect bruising and tenderness that gradually resolve within a week or two. Return to work as instructed per your physician Resume driving as instructed per physician Keep all scheduled follow up appointments Resume medications as instructed IMPORTANT: If prescribed a Platelet Aggregation Inhibitor such as, Plavix, Brilinta or Effient: Duration of therapy is minimum one year These medications are often used in combination with Aspirin in prevention of future heart attacks Never discontinue unless consult with your Flight Superintendent STROKE (CVA) Risk factors for a stroke are: Age, cigarette smoking, diabetes, excessive alcohol consumption, family history, high blood pressure, overweight, physical inactivity, prior stroke, heart attack, diagnosis of carotid artery stenosis or other artery disease. Warning signs: Sudden numbness or weakness of the face, arm or leg; especially on one side of the body, sudden confusion, trouble speaking or understanding, sudden trouble seeing in one or both eyes, sudden trouble walking, dizziness, loss of balance or coordination, sudden severe headache with no cause. Call 911 or go to the Emergency Room. CONGESTIVE HEART FAILURE: If you have been diagnosed with Congestive Heart Failure (CHF) and your symptoms return, make an appointment with your physician Weigh yourself daily. Notify your physician if you have a weight gain of two or more pounds in one day or five or more pounds in one week. If you experience any difficulty breathing, please call 911 BLEEDING: Although the risk of bleeding is minimal, it can happen. If you have any bleeding from the site, apply firm pressure above the puncture site for 10-15 minutes. If the bleeding does not stop, continue manual pressure and call 911 Contact your physician if: You develop a fever greater than 101 degrees Fahrenheit Your site becomes reddened or has any drainage You have an increase in pain or burning at the site or if a large knot forms at the site. If you experience chest pain, shortness of breath, dizziness, or extreme tiredness, stop the activity and rest. Please notify your physicians office if you experience any of these symptoms and they are not relieved by rest please call 911! Referrals: Yosi Gonzalez Jr, MD [Primary Care Provider] -
--- NOTE | 2018-09-09 11:42 | Urology Progress Note ---
Date of Encounter: 09/09/18 Time of Encounter: 11:40 - Assessment and Plan (1) Hydronephrosis Current Visit: Yes Status: Acute Assessment and plan: Discussed case with cardiology this morning. They will be evaluating for surgical clearance/risk in setting of NSTEMI. Plan: reschedule urinary diversion via stenting for tomorrow once cleared. Qualifiers: Hydronephrosis type: unspecified Qualified Code(s): N13.30 - Unspecified hydronephrosis (2) Abdominal pain Current Visit: Yes Status: Acute Qualifiers: Abdominal location: right upper quadrant Qualified Code(s): R10.11 - Right upper quadrant pain (3) Pyelonephritis Current Visit: Yes Status: Acute Assessment and plan: Pansensitive E.coli on formal culture. Fortunately, patient has not developed sepsis in setting of obstruction and delayed diversion due to active NSTEMI. Plan: urinary diversion via stenting tomorrow if cleared by cardiology.. (4) Anticoagulation adequate Current Visit: Yes Status: Acute Progress Note Subjective: no new complaints Objective Initial Vital Signs Temp Pulse Resp BP Pulse Ox 97.5 F L 71 18 179/116 97 09/07/18 08:51 09/07/18 08:51 09/07/18 08:51 09/07/18 08:51 09/07/18 08:51 - General physical appearance Present: no distress - Respiratory Present: normal respiratory effort - Integumentary Present: no rash, no growths - Musculoskeletal Present: normal posture - Psychiatric Present: oriented to time, oriented to person, oriented to place - Labs 09/09/18 00:04 09/09/18 00:04 Diabetes panel 09/09/18 Range/Units 00:04 Sodium 137 (136-145) mEq/L Potassium 3.7 (3.5-5.1) mEq/L Chloride 105 (98-107) mEq/L Carbon Dioxide 26 (23-29) mEq/L BUN 13 (8-23) mg/dL Creatinine 0.93 (0.60-1.20) mg/dL Glucose 215 H (70-105) mg/dL Calcium 8.7 (8.6-10.3) mg/dL Calcium panel 09/09/18 Range/Units 00:04 Calcium 8.7 (8.6-10.3) mg/dL Pituitary panel 09/09/18 Range/Units 00:04 Sodium 137 (136-145) mEq/L Potassium 3.7 (3.5-5.1) mEq/L Chloride 105 (98-107) mEq/L Carbon Dioxide 26 (23-29) mEq/L BUN 13 (8-23) mg/dL Creatinine 0.93 (0.60-1.20) mg/dL Glucose 215 H (70-105) mg/dL Calcium 8.7 (8.6-10.3) mg/dL Adrenal panel 09/09/18 Range/Units 00:04 Sodium 137 (136-145) mEq/L Potassium 3.7 (3.5-5.1) mEq/L Chloride 105 (98-107) mEq/L Carbon Dioxide 26 (23-29) mEq/L BUN 13 (8-23) mg/dL Creatinine 0.93 (0.60-1.20) mg/dL Glucose 215 H (70-105) mg/dL Calcium 8.7 (8.6-10.3) mg/dL Consult Discharge Plan - Plan Additional Instructions: RISK FACTORS: STOP SMOKING: If you smoke, STOP. Smoking or tobacco use significantly increases your risk of heart disease because nicotine causes the arteries to narrow or constrict. It also causes fats to stick to the artery. Your chances of having a heart attack are greatly increased if you continue to smoke. For more information, call the education line for smoking cessation 0-149-RIUJUFD EAT A LOW FAT/CHOLESTEROL/SODIUM DIET: This diet may help reduce your chances of having a heart attack. LIFTING: Avoid lifting anything more than 10 pounds for 5-7 days Prior to straining, laughing, sneezing and/or coughing, apply manual pressure directly over insertion site. ACTIVITY: You may walk or climb stairs as tolerated You can resume sexual activity as tolerated In general, you are encouraged to engage in a minimum of 30 minutes or more of moderate intensity physical activity, such as brisk walking, daily or at least 3-4 times weekly BATHING Do not submerge the site into water (bath tub, hot tub, swimming pool) for 1 week. This can be a source for infection into the blood stream. You may shower after 24 hours SITE CARE: After 24 hours, you may remove the dressing and leave the site open to air. Keep the site clean and dry. Clean gently and pat dry. You can expect bruising and tenderness that gradually resolve within a week or two. Return to work as instructed per your physician Resume driving as instructed per physician Keep all scheduled follow up appointments Resume medications as instructed IMPORTANT: If prescribed a Platelet Aggregation Inhibitor such as, Plavix, Brilinta or Effient: Duration of therapy is minimum one year These medications are often used in combination with Aspirin in prevention of future heart attacks Never discontinue unless consult with your Statistical Methods Professor STROKE (CVA) Risk factors for a stroke are: Age, cigarette smoking, diabetes, excessive alcohol consumption, family history, high blood pressure, overweight, physical inactivity, prior stroke, heart attack, diagnosis of carotid artery stenosis or other artery disease. Warning signs: Sudden numbness or weakness of the face, arm or leg; especially on one side of the body, sudden confusion, trouble speaking or understanding, sudden trouble seeing in one or both eyes, sudden trouble walking, dizziness, loss of balance or coordination, sudden severe headache with no cause. Call 911 or go to the Emergency Room. CONGESTIVE HEART FAILURE: If you have been diagnosed with Congestive Heart Failure (CHF) and your symptoms return, make an appointment with your physician Weigh yourself daily. Notify your physician if you have a weight gain of two or more pounds in one day or five or more pounds in one week. If you experience any difficulty breathing, please call 911 BLEEDING: Although the risk of bleeding is minimal, it can happen. If you have any bleeding from the site, apply firm pressure above the puncture site for 10-15 minutes. If the bleeding does not stop, continue manual pressure and call 911 Contact your physician if: You develop a fever greater than 101 degrees Fahrenheit Your site becomes reddened or has any drainage You have an increase in pain or burning at the site or if a large knot forms at the site. If you experience chest pain, shortness of breath, dizziness, or extreme tiredness, stop the activity and rest. Please notify your physicians office if you experience any of these symptoms and they are not relieved by rest please call 911! Referrals: Yosi Gonzalez Jr, MD [Primary Care Provider] -
--- NOTE | 2018-09-09 12:34 | Event Note ---
Date of Encounter: 09/09/18 Time of Encounter: 12:32 - Cardiology Event Note Asked to comment on pre-operative cardiovascular risk stratification for urinary diversion via stenting. Presented with peak troponin 8.16--diagnosed as NSTEMI. Underwent LHC yesterday 90% OM2 stenosis, small vessel, medical management recommended. No intervention. EF is reduced, 35%--takotsubo appearance. Pt denies chest pain, appears well compensated on exam. No arrhythmias noted on telemetry. Pt is intermediate risk from a cardiac standpoint to proceed with urinary diversion via stenting. Recommend continuing ASA, Plavix, Statin, BB, ACEi throughout the perioperative period. Cardiology signing off. Reconsult PRN.
[2018-09-09] MEDS: *HR* Heparin 5,000 UNIT/ML VIAL SQ SCH (16:56)
[2018-09-09] MEDS: Insulin DETEMIR 100 UNIT/ML X5UNITS SQ SCH (19:56)
[2018-09-10 04:46] LABS: Basophils % 0.3 %; Eosinophils # 0.2 K/mcL (0.0-0.6); Eosinophils % 2.1 %; Hematocrit 34.1 % (35.3-44.9); Hemoglobin 11.1 g/dL (11.5-15.4); Immature Granulocytes % 0.4 % (0-4); Lymphocytes # 1.7 K/mcL (0.6-4.6); Lymphocytes % 23.7 %; Mean Corpuscular HGB Conc 32.6 g/dL (31.6-35.5); Mean Corpuscular Hemoglobin 28.8 pg (28.0-33.3); Mean Corpuscular Volume 88.3 fL (83.0-100.0); Mean Platelet Volume 9.1 fL (9.4-12.4); Monocytes # 0.6 K/mcL (0.0-1.3); Monocytes % 8.9 %; Neutrophils # 4.6 K/mcL (1.6-8.9); Platelet Count 201 K/mcL (140-400); Red Blood Count 3.86 M/mcL (3.82-4.97); Red Cell Distribution Width 13.2 % (11.5-14.5); Segmented Neutrophils % 64.6 %
[2018-09-10] MEDS: *HR* Heparin 5,000 UNIT/ML VIAL SQ SCH ×2 (04:52→16:57)
[2018-09-10 05:05] LABS: BUN/Creatinine Ratio 16 (6-26); Blood Urea Nitrogen 11 mg/dL (8-23); Calcium 8.3 mg/dL (8.6-10.3); Carbon Dioxide 26 mEq/L (23-29); Chloride 108 mEq/L (98-107); Glucose 131 mg/dL (70-105); Osmolality,Calculated 291 (280-300); Potassium 3.4 mEq/L (3.5-5.1); Sodium 140 mEq/L (136-145); eGFR For Non-African Americans > 60 (> 60)
[2018-09-10] MEDS: Aspirin 81 MG TAB.CHEW PO SCH (08:28)
[2018-09-10] MEDS: Metoprolol XL (24 HR) Succ 25 MG TAB.ER.24H PO SCH (08:29)
[2018-09-10] MEDS ORDERED: Levofloxacin 750 MG/150 ML 750 MG/150 ML BAG IVPB SCH (09:00)
--- NOTE | 2018-09-10 09:04 | Urology Progress Note ---
Date of Encounter: 09/10/18 Time of Encounter: 09:02 - Assessment and Plan (1) Hydronephrosis Current Visit: Yes Status: Acute Assessment and plan: Patient is a 78-year-old female who presents the history of right hydronephrosis and pyelonephritis. On admission, patient was found to have a NSTEMI, and therefore cardiac clearance has been obtained. Patient has been ruled at intermediate cardiovascular risk for surgery. Patient is been recommended to continue anticoagulation in the perioperative period. Plan to proceed with urinary diversion with right ureteral stent placement as discussed with Dr. Vazquez. Qualifiers: Hydronephrosis type: unspecified Qualified Code(s): N13.30 - Unspecified hydronephrosis (2) NSTEMI (non-ST elevated myocardial infarction) Current Visit: Yes Status: Acute Assessment and plan: Patient is a 78-year-old female who presents the history of a NSTEMI. Patient is being managed by cardiology and has been cleared for ureteral stent naomi cement. (3) Pyelonephritis Current Visit: Yes Status: Acute Assessment and plan: Patient is a 78-year-old female who presents the history of pyelonephritis. Urine culture is positive for pansensitive Escherichia coli. Blood cultures are pending. Patient has been placed on IV Levaquin. Vital signs are stable and afebrile. White blood cell count is reassuring. In the setting of obstruction with acute infection, urinary diversion with ureteral stent placement is indicated. Patient has been ruled intermediate risk by cardiology. Progress Note Subjective: no new complaints Narrative: Patient seen and examined sitting upright in bed in no apparent distress. Patient states she is voiding without difficulty. Patient currently denies chest pain, dyspnea, flank pain, gross hematuria. Discussed ureteral stent placement with patient. Patient reports she has a history of interstitial cystitis and was taking Elmiron for 3 years. Patient discontinued medication due to cost. Patient is concerned for renal function, because she takes Azo 1 tablet every other day for urinary tract discomfort. Objective Initial Vital Signs Temp Pulse Resp BP Pulse Ox 97.5 F L 71 18 179/116 97 09/07/18 08:51 09/07/18 08:51 09/07/18 08:51 09/07/18 08:51 09/07/18 08:51 - General physical appearance Present: well developed, no distress, no pain - Respiratory Present: normal expansion, normal respiratory effort - Abdomen Present: soft, non tender - Integumentary Present: no rash, no abnormal pigmentation - Musculoskeletal Present: normal posture - Psychiatric Present: oriented to time, oriented to person, oriented to place, speech is normal, memory intact - Labs 09/10/18 04:18 09/10/18 04:18 Diabetes panel 09/10/18 Range/Units 04:18 Sodium 140 (136-145) mEq/L Potassium 3.4 L (3.5-5.1) mEq/L Chloride 108 H (98-107) mEq/L Carbon Dioxide 26 (23-29) mEq/L BUN 11 (8-23) mg/dL Creatinine 0.69 (0.60-1.20) mg/dL Glucose 131 H (70-105) mg/dL Calcium 8.3 L (8.6-10.3) mg/dL Calcium panel 09/10/18 Range/Units 04:18 Calcium 8.3 L (8.6-10.3) mg/dL Pituitary panel 09/10/18 Range/Units 04:18 Sodium 140 (136-145) mEq/L Potassium 3.4 L (3.5-5.1) mEq/L Chloride 108 H (98-107) mEq/L Carbon Dioxide 26 (23-29) mEq/L BUN 11 (8-23) mg/dL Creatinine 0.69 (0.60-1.20) mg/dL Glucose 131 H (70-105) mg/dL Calcium 8.3 L (8.6-10.3) mg/dL Adrenal panel 09/10/18 Range/Units 04:18 Sodium 140 (136-145) mEq/L Potassium 3.4 L (3.5-5.1) mEq/L Chloride 108 H (98-107) mEq/L Carbon Dioxide 26 (23-29) mEq/L BUN 11 (8-23) mg/dL Creatinine 0.69 (0.60-1.20) mg/dL Glucose 131 H (70-105) mg/dL Calcium 8.3 L (8.6-10.3) mg/dL Consult Discharge Plan - Plan Additional Instructions: RISK FACTORS: STOP SMOKING: If you smoke, STOP. Smoking or tobacco use significantly increases your risk of heart disease because nicotine causes the arteries to narrow or constrict. It also causes fats to stick to the artery. Your chances of having a heart attack are greatly increased if you continue to smoke. For more information, call the education line for smoking cessation 6-962-PXCBZXG EAT A LOW FAT/CHOLESTEROL/SODIUM DIET: This diet may help reduce your chances of having a heart attack. LIFTING: Avoid lifting anything more than 10 pounds for 5-7 days Prior to straining, laughing, sneezing and/or coughing, apply manual pressure directly over insertion site. ACTIVITY: You may walk or climb stairs as tolerated You can resume sexual activity as tolerated In general, you are encouraged to engage in a minimum of 30 minutes or more of moderate intensity physical activity, such as brisk walking, daily or at least 3-4 times weekly BATHING Do not submerge the site into water (bath tub, hot tub, swimming pool) for 1 week. This can be a source for infection into the blood stream. You may shower after 24 hours SITE CARE: After 24 hours, you may remove the dressing and leave the site open to air. Keep the site clean and dry. Clean gently and pat dry. You can expect bruising and tenderness that gradually resolve within a week or two. Return to work as instructed per your physician Resume driving as instructed per physician Keep all scheduled follow up appointments Resume medications as instructed IMPORTANT: If prescribed a Platelet Aggregation Inhibitor such as, Plavix, Brilinta or Effient: Duration of therapy is minimum one year These medications are often used in combination with Aspirin in prevention of future heart attacks Never discontinue unless consult with your Clinical Assistant STROKE (CVA) Risk factors for a stroke are: Age, cigarette smoking, diabetes, excessive alcohol consumption, family history, high blood pressure, overweight, physical inactivity, prior stroke, heart attack, diagnosis of carotid artery stenosis or other artery disease. Warning signs: Sudden numbness or weakness of the face, arm or leg; especially on one side of the body, sudden confusion, trouble speaking or understanding, sudden trouble seeing in one or both eyes, sudden trouble walking, dizziness, loss of balance or coordination, sudden severe headache with no cause. Call 911 or go to the Emergency Room. CONGESTIVE HEART FAILURE: If you have been diagnosed with Congestive Heart Failure (CHF) and your symptoms return, make an appointment with your physician Weigh yourself daily. Notify your physician if you have a weight gain of two or more pounds in one day or five or more pounds in one week. If you experience any difficulty breathing, please call 911 BLEEDING: Although the risk of bleeding is minimal, it can happen. If you have any bleeding from the site, apply firm pressure above the puncture site for 10-15 minutes. If the bleeding does not stop, continue manual pressure and call 911 Contact your physician if: You develop a fever greater than 101 degrees Fahrenheit Your site becomes reddened or has any drainage You have an increase in pain or burning at the site or if a large knot forms at the site. If you experience chest pain, shortness of breath, dizziness, or extreme t iredness, stop the activity and rest. Please notify your physicians office if you experience any of these symptoms and they are not relieved by rest please call 911! Referrals: Yosi Gonzalez Jr, MD [Primary Care Provider] -
--- NOTE | 2018-09-10 10:41 | Internal Med Progress Note ---
<David Calixto U - Last Filed: 09/10/18 15:12> Hospitalist Progress Note - Encounter Date of Encounter: 09/10/18 Time of Encounter: 10:00 - Subjective Interval History: 78 y/o female patient seen at bedside today, she feels better without any acute complaints. She denies any further chest pain, abdominal pain, or back pain. Pt is being medically managed for her 1 vessel CAD. Urology is consulted for urinary diversion via stent placement for hydronephrosis, cardiology has stated it is intermediate risk post heart cath. - Exam Vitals: Temp Pulse Resp BP Pulse Ox 99.4 F 73 16 103/52 92 09/10/18 07:59 09/10/18 07:59 09/10/18 07:59 09/10/18 07:59 09/10/18 07:59 Exam: Head exam: Present: atraumatic, normocephalic Eye exam: Present: normal appearance, conjuntiva pink, sclera anicteric Neck exam general surgery: Present: supple, trachea midline. Absent: lymphadenopathy Respiratory exam: Present: CTAB. Absent: accessory muscle use, rales, rhonchi, wheezes Cardiovascular exam: Present: RRR, +S1, +S2. Absent: diastolic murmur, gallop, rubs, systolic murmur GI/Abdominal exam: Present: normal bowel sounds, soft, no peritoneal signs. Absent: distended, tenderness Extremities exam: Present: warm. Absent: calf tenderness, cyanotic Neurological exam: Present: alert, oriented X3, no focal deficits. Absent: facial droop, speech deficit Skin exam: Present: dry, intact - Assessment and Plan (1) NSTEMI (non-ST elevated myocardial infarction) Current Visit: Yes Status: Acute Assessment and Plan: S/P [facility] yesterday--Severe one vessel CAD - OM 2 (<2mm diameter, small vessel) There is severe segmental LV Dysfunction EF 35% in pattern of Takotsubo with no diagnostic thrombus. TTE EF 35%. Global and regional LV segmental wall motion abnormalities. Asymmetric septal hypertrophy. No LVOT obstruction. LV diastolic dysfunction with elevated filling pressures. There is no LV thrombus. Definity echo contrast was used. Mild AR, MR, TR, ID. Cardiology recommend DAPT (ASA and Plavix) given peak troponin of 8.16. Continue Statin, BB, ACEi. Cardiology outpt follow-up in 1 week. (2) Nonischemic cardiomyopathy Current Visit: Yes Status: Acute Assessment and Plan: - See above - Outpt cardiology follow up. Recheck TTE as outpt in 3 months to re-evaluate EF. (3) Chest pain Current Visit: Yes Status: Resolved Assessment and Plan: - See above. (4) Pyelonephritis Current Visit: Yes Status: Acute Assessment and Plan: - Abd pain, hydronephrosis, leukocytosis, and positive UA on presentation. - On Levaquin due to PCN allergy (day 4) - Pansensitive E.coli on formal culture. - Urology performed urinary diversion via stent today Recommend continuing ASA, Plavix, Statin, BB, ACEi throughout the perioperative period. (5) Hydronephrosis Current Visit: Yes Status: Acute Assessment and Plan: See above. Urinary stenting completed 09/10/18 post NSTEMI and surgical clearance by cardiology. (6) Chronic interstitial cystitis with hematuria Current Visit: Yes Status: Chronic (7) DM (diabetes mellitus), type 2 Current Visit: Yes Status: Chronic Assessment and Plan: Hold home meds, give 14 units basal insulin and start low dose corrective SSI. (8) DVT prophylaxis Current Visit: Yes Status: Acute Assessment and Plan: sq heparin DVT Prophylaxis: sq heparin - Time Spent with Patient Total time spent is greater than 50% in coordination of care (as documented) at patient's floor/unit and/or counseling patient: Plan of Care Discussed with: patient Internal Medicine: Result - Labs CBC & Chem 7: 09/10/18 04:18 09/10/18 04:18 Labs: Short CBC 09/10/18 Range/Units 04:18 WBC 7.1 (4.3-11.1) K/mcL Hgb 11.1 L (11.5-15.4) g/dL Hct 34.1 L (35.3-44.9) % Plt Count 201 (140-400) K/mcL Neutrophils # 4.6 (1.6-8.9) K/mcL BMP 09/10/18 04:18 Sodium 140 Potassium 3.4 L Chloride 108 H Carbon Dioxide 26 BUN 11 Creatinine 0.69 Glucose 131 H Calcium 8.3 L - ABG Interpretation ABG results: PT/INR, D-dimer PT 11.1 Seconds (9.4-12.1) 09/07/18 17:00 Consult Discharge Plan - Plan Additional Instructions: RISK FACTORS: STOP SMOKING: If you smoke, STOP. Smoking or tobacco use significantly increases your risk of heart disease because nicotine causes the arteries to narrow or constrict. It also causes fats to stick to the artery. Your chances of having a heart attack are greatly increased if you continue to smoke. For more information, call the education line for smoking cessation 1-290-NRWUDUV EAT A LOW FAT/CHOLESTEROL/SODIUM DIET: This diet may help reduce your chances of having a heart attack. LIFTING: Avoid lifting anything more than 10 pounds for 5-7 days Prior to straining, laughing, sneezing and/or coughing, apply manual pressure directly over insertion site. ACTIVITY: You may walk or climb stairs as tolerated You can resume sexual activity as tolerated In general, you are encouraged to engage in a minimum of 30 minutes or more of moderate intensity physical activity, such as brisk walking, daily or at least 3-4 times weekly BATHING Do not submerge the site into water (bath tub, hot tub, swimming pool) for 1 week. This can be a source for infection into the blood stream. You may shower after 24 hours SITE CARE: After 24 hours, you may remove the dressing and leave the site open to air. Keep the site clean and dry. Clean gently and pat dry. You can expect bruising and tenderness that gradually resolve within a week or two. Return to work as instructed per your physician Resume driving as instructed per physician Keep all scheduled follow up appointments Resume medications as instructed IMPORTANT: If prescribed a Platelet Aggregation Inhibitor such as, Plavix, Brilinta or Effient: Duration of therapy is minimum one year These medications are often used in combination with Aspirin in prevention of future heart attacks Never discontinue unless consult with your After School Caregiver STROKE (CVA) Risk factors for a stroke are: Age, cigarette smoking, diabetes, excessive alcohol consumption, family history, high blood pressure, overweight, physical inactivity, prior stroke, heart attack, diagnosis of carotid artery stenosis or other artery disease. Warning signs: Sudden numbness or weakness of the face, arm or leg; especially on one side of the body, sudden confusion, trouble speaking or understanding, sudden trouble seeing in one or both eyes, sudden trouble walking, dizziness, loss of balance or coordination, sudden severe headache with no cause. Call 911 or go to the Emergency Room. CONGESTIVE HEART FAILURE: If you have been diagnosed with Congestive Heart Failure (CHF) and your symptoms return, make an appointment with your physician Weigh yourself daily. Notify your physician if you have a weight gain of two or more pounds in one day or five or more pounds in one week. If you experience any difficulty breathing, please call 911 BLEEDING: Although the risk of bleeding is minimal, it can happen. If you have any bleeding from the site, apply firm pressure above the puncture site for 10-15 minutes. If the bleeding does not stop, continue manual pressure and call 911 Contact your physician if: You develop a fever greater than 101 degrees Fahrenheit Your site becomes reddened or has any drainage You have an increase in pain or burning at the site or if a large knot forms at the site. If you experience chest pain, shortness of breath, dizziness, or extreme tiredness, stop the activity and rest. Please notify your physicians office if you experience any of these symptoms and they are not relieved by rest please call 911! Referrals: Leander Morales CNP [Advanced Practice Nurse] - (office will call patient at home with follow up appointment) Yosi Gonzalez Jr, MD [Primary Care Provider] - 09/17/18 8:30 am <Johnathan Infante - Last Filed: 09/10/18 15:57> Hospitalist Progress Note - Encounter Date of Encounter: 09/10/18 - Exam Vitals: Temp Pulse Resp BP Pulse Ox 100.2 F H 77 14 103/56 98 09/10/18 14:50 09/10/18 14:50 09/10/18 14:50 09/10/18 14:50 09/10/18 14:50 - Time Spent with Patient Total time spent is greater than 50% in coordination of care (as documented) at patient's floor/unit and/or counseling patient: Internal Medicine: Result - Labs CBC & Chem 7: 09/10/18 04:18 09/10/18 04:18 Labs: Short CBC 09/10/18 Range/Units 04:18 WBC 7.1 (4.3-11.1) K/mcL Hgb 11.1 L (11.5-15.4) g/dL Hct 34.1 L (35.3-44.9) % Plt Count 201 (140-400) K/mcL Neutrophils # 4.6 (1.6-8.9) K/mcL BMP 09/10/18 04:18 Sodium 140 Potassium 3.4 L Chloride 108 H Carbon Dioxide 26 BUN 11 Creatinine 0.69 Glucose 131 H Calcium 8.3 L - ABG Interpretation ABG results: PT/INR, D-dimer PT 11.1 Seconds (9.4-12.1) 09/07/18 17:00 - Impressions Impressions Retrograde Pyelogram 09/10/18 00:00 IMPRESSION: Intraprocedural fluoroscopic spot images as above. See separate procedure report for more information. D/ / Alan Burkett MD / Alan Burkett MD Interpreting Provider: Alan Burkett MD - Attending Attestation I saw and independently assessed this patient and agree with plan per medical student 78 year old female came in with abdominal pain and elevated troponins Exam Gen - Awake, alert, oriented x 3, no acute distress HEENT - NCAT, PERRLA, EOMI, hearing grossly intact, oropharynx benign CV - RRR, normal S1 and S2, no M/R/G, no BLE edema Resp - Normal WOB, CTAB, no W/R/R GI - Soft, NT/ND, no masses, normal bowel sounds, Skin - Warm, dry, no rashes/lesions/ulcers Psych - Normal mood and affect, no depression or anxiety Plan NSTEMI. Cath showed likely takotsubo cardiomyopathy with severe segmental LV dysfunction. No stents placed. Continue aggressive medical intervention Acute pyelonephritis with hydronephrosis. Continue levaquin . s/p stenting by urology today. 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
--- NOTE | 2018-09-10 13:25 | Anesthesia Evaluation PreOp ---
Date of Encounter: 09/10/18 Time of Encounter: 13:45 - Past History Planned Operation: cysto, retrograde pylo with stent Cardiac History: [place] (Admitted with non-stemi [place], elevated troponins. 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: Denies Any Significant HX Other Medical History: Diabetes Type II Anesthesia History: No Prior Anesthetic Complications, Past Anesthesia Alcohol Use: occasionally Drug use: none Medications and Allergies RX: Aspirin 81 mg PO DAILY 03/03/16 [History] RX: Atorvastatin [Lipitor] 40 mg PO HS 03/03/16 [History] RX: Clopidogrel Bisulfate [Plavix] 75 mg PO DAILY 03/03/16 [History] RX: GlipiZIDE XL (24 HR) [Glucotrol XL] 10 mg PO 0800 03/03/16 [History] RX: Lisinopril [Zestril] 10 mg PO DAILY 03/03/16 [History] RX: Metoprolol [Lopressor] 25 mg PO BID 03/03/16 [History] Metformin HCl 1,000 mg PO BID 09/07/18 [History] RX: Amitriptyline [Elavil] 25 mg PO HS 09/07/18 [History] Allergy/AdvReac Type Severity Reaction Status Date / Time Penicillins Allergy Anaphylaxis Verified 11/12/17 18:02 - Meds/Allergy Pre-op Review Medications Reviewed: Yes Allergies Reviewed: Yes Beta Blockers on Current Med List: Yes (0825) Anesthesia Results - Labs 09/10/18 04:18 09/10/18 04:18 - Imaging EKG: report reviewed (sinus rhythm, ST elevation, stable on serial EKGs) Additional studies: EF 35% Anesthesia Exam Weight: 60 kg BMI 24 kg - HEENT Pupil (Motor): Pupils equal Mallampati: II Teeth: Edentulous Oral Opening: Greater than 3 - Cardiac Rhythm: Regular Murmur: None - Pulmonary Breath Sounds: bilateral Clear Respiratory Effort: Symmetrical Anesthesia Assess/Plan ASA Score: 3 Level of consciousness: Cooperative Anesthetic Plan: General Monitoring Plan: Standard Monitors Recovery Plan: PACU (Discussed GA, anesthesia risks, agreed to proceed.)
[2018-09-10] MEDS ORDERED: Isovue-300 30 ML VIAL ONE (13:29)
[2018-09-10] MEDS ORDERED: Dexamethasone 4 MG/ML VIAL ONE (13:33)
[2018-09-10] MEDS ORDERED: *HR* Propofol 200 MG/20 ML VIAL IVP ONE (13:33)
[2018-09-10] MEDS ORDERED: *HR* FentaNYL (PF) 100 MCG/2 ML VIAL ONE (13:33)
[2018-09-10] MEDS ORDERED: Ondansetron 4 MG/2 ML VIAL ONE (13:33)
[2018-09-10] MEDS ORDERED: Lidocaine -MPF 2% 2 ML VIAL ONE (13:33)
[2018-09-10] MEDS ORDERED: Acetaminophen IV 1,000 MG/100 ML INFUS..BTL ONE (14:07)
[2018-09-10] MEDS ORDERED: *HR* HYDROmorphone 2 MG/ML SYRINGE IVP PRN ×2 (14:15→15:24)
[2018-09-10] MEDS ORDERED: *HR* OxyCODONE Immed Rel 5 MG TABLET PO PRN ×2 (14:15→15:24)
[2018-09-10] MEDS ORDERED: *HR* Labetalol 20 MG/4 ML SYRINGE IVP PRN ×2 (14:15→15:24)
[2018-09-10] MEDS ORDERED: Ondansetron 4 MG/2 ML VIAL IVP PRN ×2 (14:15→15:24)
--- NOTE | 2018-09-10 14:20 | Operative Note ---
Date of procedure: 09/10/18 Pre-op diagnosis: Right ureteral obstruction, hydronephrosis, urinary tract infection Post-op diagnosis: same Procedure: Cystoscopy, right retrograde ureteral pyelography, right double-J stent placement under fluoroscopic guidance, intraoperative interpretation of all radiographic images in real time by surgeon to facilitate procedure. Implants: none Complications: none Anesthesia: THAO Surgeon: Danis Vazquez Was there an miner assistant present: No Estimated blood loss (cc): 0 Specimen: none Condition: stable Disposition: PACU Procedure in Detail: Very pleasant 78-year-old lady who was admitted with chest and abdominal pain. CT reveals obstruction of the distal right ureter with hydroureteronephrosis. The patient is actively infected. She is scheduled for urgent urinary diversion by stenting. She then was found to have probably rising troponins worked up and found to have an acute non-ST SD which placed her urinary diversion on hold. Fortunately she did not develop signs of sepsis. She is now been cleared theater with anesthesia and stenting. Patient brought the operating theater placed on table supine position is identified by name and administered general anesthetic. The patient was placed in dorsal lithotomy prepped and draped in normal sterile fashion. The cystoscope was inserted weakness advanced bladder under direct visualization. There were no mucosal abnormalities identified. There was a tight right he well. The open-ended ureteral catheter could not be advanced into the low, but was placed up against the well and a retrograde ureteropyelogram was performed. Intraoperative interpretation of the right retrograde ureteral pyelogram revealed narrowing at the very distal to intermural right ureter. Above this level mild to moderate hydroureteronephrosis was appreciated. No intraluminal filling defect was appreciated. No other urinary tract abnormality was seen. At this point a Glidewire was advanced right renal pelvis under fluoroscopic guidance. Over the Glidewire a 6 x 26 double-J stent was advanced. Once it was in good position the Glidewire was removed and both proximal distal ends of the stent were confirmed in good position using real-time fluoroscopy. All instruments were removed the patient's bladder. This ended the operative procedure.
--- NOTE | 2018-09-10 14:48 | Anesthesia Evaluation Post Op ---
Date of Encounter: 09/10/18 Time of Encounter: 14:47 - Vital Signs Vital Signs: Vital Signs/O2 Sat, Most Current Temp Pulse Resp BP Pulse Ox 100.2 F H 79 14 107/56 98 09/10/18 14:20 09/10/18 14:40 09/10/18 14:40 09/10/18 14:40 09/10/18 14:40 - Lungs Lungs: Clear Ascult./Percussion - Airway Airway: Non-obstructed - Cardiovascular Regular Rate - Mental Status Mental Status: Alert & Oriented, Answers Appropriately - Pain Pain Scale: 0 Pain Scale used: Numeric (1 - 10) - Nausea Vomiting Nausea Vomiting: Not Present - Hydration Hydration: Ice chips - Discharge PostOp Status: Transfer Patient to floor (awake, VSS, no anesthetic complications)
[2018-09-10] MEDS ORDERED: D5% in Water 1,000 ML IVC PRN (15:24)
[2018-09-10] MEDS ORDERED: *HR* Promethazine 25 MG/ML VIAL IVP PRN (15:24)
[2018-09-10] MEDS ORDERED: Nitroglycerin 0.4 MG TAB.SUBL SL PRN (15:24)
[2018-09-10] MEDS ORDERED: *HR* Morphine 2 MG/ML SYRINGE IVP PRN (15:24)
[2018-09-10] MEDS ORDERED: Dextrose Gel 15 GM/37.5 ML TUBE PO PRN ×2 (15:24)
[2018-09-10] MEDS ORDERED: *HR* Dextrose 50 % in Water (Syg) 50 ML SYRINGE IVP PRN (15:24)
[2018-09-10] MEDS ORDERED: Naloxone 0.4 MG/ML INJ IVP PRN (15:24)
[2018-09-10] MEDS: Nitroglycerin 25 MG/250 ML INFUS..BTL IVC SCH (16:39)
[2018-09-10] MEDS: Insulin LISPRO 300 UNITS/3 ML VIAL SQ SCH (17:24)
[2018-09-10] MEDS ORDERED: Insulin DETEMIR 100 UNIT/ML X5UNITS SQ SCH (21:00)
[2018-09-10] MEDS ORDERED: Insulin LISPRO 300 UNITS/3 ML VIAL SQ SCH (21:00)
[2018-09-11] MEDS: *HR* Heparin 5,000 UNIT/ML VIAL SQ SCH ×2 (06:03→17:46)
--- NOTE | 2018-09-11 07:22 | Discharge Summary ---
<NewmanJackie - Last Filed: 09/11/18 13:38> Orders not resulted at time of discharge: Pending orders 09/07/18 12:58 Culture,Blood [BC] Stat Date of Encounter: 09/11/18 - Discharge Diagnosis (1) NSTEMI (non-ST elevated myocardial infarction) Priority: Primary Status: Resolved (2) Nonischemic cardiomyopathy Priority: Secondary Status: Acute (3) Pyelonephritis Priority: Secondary Status: Acute (4) Chronic interstitial cystitis with hematuria Priority: Secondary Status: Chronic (5) DM (diabetes mellitus), type 2 Priority: Secondary Status: Chronic Qualifiers: Diabetes mellitus marine oil terminal superintendent insulin use: without chcf use Diabetes mellitus complication status: without complication Qualified Code(s): E11.9 - Type 2 diabetes mellitus without complications (6) Chest pain Priority: Secondary Status: Resolved Qualifiers: Chest pain type: chest pain due to myocardial ischemia Ischemic chest pain type: unstable angina pectoris Qualified Code(s): I20.0 - Unstable angina (7) Hydronephrosis Priority: Secondary Status: Acute Qualifiers: Hydronephrosis type: unspecified Qualified Code(s): N13.30 - Unspecified hydronephrosis (8) DVT prophylaxis Priority: Secondary Status: Acute Hospital course: I have re-performed and reviewed the history documented by the medical student, and I confirm its accuracy except as noted below Discharge discussed with: patient - Time Spent with Patient Total time spent providing and/or coordinating discharge services: Less than 30 minutes - Discharge Medications Prescriptions: L. Acidophilus/L.bulgaricus [Lactobacillus Tablet] 1 each PO BID 7 Days #14 tablet levoFLOXacin [Levaquin] 750 mg PO DAILY 5 Days #5 tablet Home Medications: Aspirin 81 mg PO DAILY 03/03/16 [History] Atorvastatin [Lipitor] 40 mg PO HS 03/03/16 [History] Clopidogrel Bisulfate [Plavix] 75 mg PO DAILY 03/03/16 [History] GlipiZIDE XL (24 HR) [Glucotrol XL] 10 mg PO 0800 03/03/16 [History] Lisinopril [Zestril] 10 mg PO DAILY 03/03/16 [History] Metoprolol [Lopressor] 25 mg PO BID 03/03/16 [History] Amitriptyline [Elavil] 25 mg PO HS 09/07/18 [History] Metformin HCl 1,000 mg PO BID 09/07/18 [History] L. Acidophilus/L.bulgaricus [Lactobacillus Tablet] 1 each PO BID 7 Days #14 tablet 09/11/18 [Rx] levoFLOXacin [Levaquin] 750 mg PO DAILY 5 Days #5 tablet 09/11/18 [Rx] Allergies/Adverse Reactions: Allergy/AdvReac Type Severity Reaction Status Date / Time Penicillins Allergy Anaphylaxis Verified 11/12/17 18:02 Date of admission: 09/08/18 03:34 Primary care physician: Yosi Gonzalez Jr, MD Consults: 09/07/18 13:21 Consult to Urology [CONS] Stat Consulting Provider: [facility] [place] Reason for Consult: right sided hydronephrosis Time Notified: 13:21 Call Completed: Yes 09/07/18 16:44 Consult to Cardiology [CONS] Routine Comment: Consulting Provider: Cardiology [facility] Reason for Consult: chest pain, elevated troponins. Heparin drip. will call after EKG. Call Completed: Yes 09/09/18 09:47 Consult to Cardiac Rehabilitation-Phase1 [CONS] Routine Comment: Reason for Consult: NSTEMI Call Completed: No Discharging clinician: Jackie Newman - Constitutional Vitals: Temp Pulse Resp BP Pulse Ox 98.5 F 103 18 169/96 93 09/11/18 11:45 09/11/18 11:45 09/11/18 11:45 09/11/18 11:45 09/11/18 11:45 General appearance: Present: cooperative, A&O X 3, pleasant, no acute distress, answers questions appropriately - Patient Status Disposition: Home, Self-Care Condition: Fair Functional capacity at discharge: independent ambulation Overall status at discharge: patient is progressing back to baseline - Discharge Instructions Follow Up With: Leander Morales CNP [Advanced Practice Nurse] - (office will call patient at home with follow up appointment) Yosi Gonzalez Jr, MD [Primary Care Provider] - 09/17/18 8:30 am Additional Instructions: RISK FACTORS: STOP SMOKING: If you smoke, STOP. Smoking or tobacco use significantly increases your risk of heart disease because nicotine causes the arteries to narrow or constrict. It also causes fats to stick to the artery. Your chances of having a heart attack are greatly increased if you continue to smoke. For more information, call the education line for smoking cessation 1-480-ULNUTJE EAT A LOW FAT/CHOLESTEROL/SODIUM DIET: This diet may help reduce your chances of having a heart attack. LIFTING: Avoid lifting anything more than 10 pounds for 5-7 days Prior to straining, laughing, sneezing and/or coughing, apply manual pressure directly over insertion site. ACTIVITY: You may walk or climb stairs as tolerated You can resume sexual activity as tolerated In general, you are encouraged to engage in a minimum of 30 minutes or more of moderate intensity physical activity, such as brisk walking, daily or at least 3-4 times weekly BATHING Do not submerge the site into water (bath tub, hot tub, swimming pool) for 1 week. This can be a source for infection into the blood stream. You may shower after 24 hours SITE CARE: After 24 hours, you may remove the dressing and leave the site open to air. Keep the site clean and dry. Clean gently and pat dry. You can expect bruising and tenderness that gradually resolve within a week or two. Return to work as instructed per your physician Resume driving as instructed per physician Keep all scheduled follow up appointments Resume medications as instructed IMPORTANT: If prescribed a Platelet Aggregation Inhibitor such as, Plavix, Brilinta or Effient: Duration of therapy is minimum one year These medications are often used in combination with Aspirin in prevention of future heart attacks Never discontinue unless consult with your Registered Nurse Supervisor STROKE (CVA) Risk factors for a stroke are: Age, cigarette smoking, diabetes, excessive alcohol consumption, family history, high blood pressure, overweight, physical inactivity, prior stroke, heart attack, diagnosis of carotid artery stenosis or other artery disease. Warning signs: Sudden numbness or weakness of the face, arm or leg; especially on one side of the body, sudden confusion, trouble speaking or understanding, sudden trouble seeing in one or both eyes, sudden trouble walking, dizziness, loss of balance or coordination, sudden severe headache with no cause. Call 911 or go to the Emergency Room. CONGESTIVE HEART FAILURE: If you have been diagnosed with Congestive Heart Failure (CHF) and your symptoms return, make an appointment with your physician Weigh yourself daily. Notify your physician if you have a weight gain of two or more pounds in one day or five or more pounds in one week. If you experience any difficulty breathing, please call 911 BLEEDING: Although the risk of bleeding is minimal, it can happen. If you have any bleeding from the site, apply firm pressure above the puncture site for 10-15 minutes. If the bleeding does not stop, continue manual pressure and call 911 Contact your physician if: You develop a fever greater than 101 degrees Fahrenheit Your site becomes reddened or has any drainage You have an increase in pain or burning at the site or if a large knot forms at the site. If you experience chest pain, shortness of breath, dizziness, or extreme tiredness, stop the activity and rest. Please notify your physicians office if you experience any of these symptoms and they are not relieved by rest please call 911! - Diet and Activity Activity: increase activity as tolerated Diet: low fat, low cholesterol <David Calixto U - Last Filed: 09/11/18 13:40> - NOTES TO OUTPATIENT PROVIDER Notes to Outpatient Provider: - Continue Levaquin 750 mg qd x5 days. Cardiology follow up 1 week. - TTE as outpatient 3 months to re-evaluate EF. - Urology follow up w/ Dr. Vazquez in 2 weeks for stent removal Orders not resulted at time of discharge: Pending orders 09/07/18 12:58 Culture,Blood [BC] Stat Date of Encounter: 09/11/18 Time of Encounter: 08:35 - Discharge Diagnosis (1) NSTEMI (non-ST elevated myocardial infarction) Priority: Primary Status: Resolved (2) Nonischemic cardiomyopathy Priority: Secondary Status: Acute (3) Chest pain Priority: Secondary Status: Resolved Qualifiers: Chest pain type: chest pain due to myocardial ischemia Ischemic chest pain type: unstable angina pectoris Qualified Code(s): I20.0 - Unstable angina (4) Pyelonephritis Priority: Secondary Status: Acute (5) Hydronephrosis Priority: Secondary Status: Acute Qualifiers: Hydronephrosis type: unspecified Qualified Code(s): N13.30 - Unspecified hydronephrosis (6) Chronic interstitial cystitis with hematuria Priority: Secondary Status: Chronic (7) DM (diabetes mellitus), type 2 Priority: Secondary Status: Chronic Qualifiers: Diabetes mellitus chcf insulin use: without marine oil terminal superintendent use Diabetes mellitus complication status: without complication Qualified Code(s): E11.9 - Type 2 diabetes mellitus without complications (8) DVT prophylaxis Priority: Secondary Status: Acute Hospital course: Ms. Portillo is a 78 year old female that had a hospital stay from 09/07 to 09/11. She presented to the ED with complaints of abdominal pain, CP/tightness/heaviness, and right side flank on 09/07. Series of tests were performed and the pt was found to have the following results: - Echo: EF of 35% - EKG: No ST elevations - Initial trop level: 0.11 (slightly elevated) - CTA: right side hydronephrosis and hydroureter with no obstructing mass or stone - UA: positive for pyelonephritis - US GB: cholelithiasis w/o evidence of acute cholecystitis The patient was to the floor and overnight developed elevated serial trop levels. Urology and cardiology were consulted. Cardiology performed LHC indicating severe 1 vestransferredsel CAD. No stent was placed and the patient is medically managed. After cardiology gave surgical clearance, urology placed a stent in the right ureter. Post op pt did well and was explained expectations after stent placement. Pt is hemodynamically stable and ready for D/C. Pt is to follow up with cardiology 1 week after hospital D/C and at 3 months for repeat TTE to re-evaluate EF. Pt also to follow up with urology as outpatient for stent removal. Discharge discussed with: patient - Time Spent with Patient Total time spent providing and/or coordinating discharge services: Date of admission: 09/08/18 03:34 Primary care physician: Yosi Gonzalez Jr, MD Consults: 09/07/18 13:21 Consult to Urology [CONS] Stat Consulting Provider: Gutierrez [place] Reason for Consult: right sided hydronephrosis Time Notified: 13:21 Call Completed: Yes 09/07/18 16:44 Consult to Cardiology [CONS] Routine Comment: Consulting Provider: Nataliya [place] Reason for Consult: chest pain, elevated troponins. Heparin drip. will call after EKG. Call Completed: Yes 09/09/18 09:47 Consult to Cardiac Rehabilitation-Phase1 [CONS] Routine Comment: Reason for Consult: NSTEMI Call Completed: No Discharging clinician: Lora Cardoza Anticipated date of discharge: 09/11/18 - Constitutional Vitals: Temp Pulse Resp BP Pulse Ox 98.2 F 70 18 117/65 90 09/11/18 04:12 09/11/18 04:12 09/11/18 04:12 09/11/18 04:12 09/11/18 04:12 General appearance: Present: cooperative, A&O X 3, pleasant, no acute distress, answers questions appropriately Exam: Head exam: Present: atraumatic, normocephalic Eye exam: Present: normal appearance, conjuntiva pink, sclera anicteric Neck exam general surgery: Present: supple, trachea midline. Absent: lymphadenopathy Respiratory exam: Present: CTAB. Absent: accessory muscle use, rales, rhonchi, wheezes Cardiovascular exam: Present: RRR, +S1, +S2. Absent: diastolic murmur, gallop, rubs, systolic murmur GI/Abdominal exam: Present: normal bowel sounds, soft, no peritoneal signs. Absent: distended, tenderness Extremities exam: Present: warm. Absent: calf tenderness, cyanotic Neurological exam: Present: alert, oriented X3, no focal deficits. Absent: facial droop, speech deficit Skin exam: Present: dry, intact - Patient Status Functional capacity at discharge: independent ambulation Overall status at discharge: patient is back to baseline <Lora Cardoza - Last Filed: 09/11/18 14:38> Orders not resulted at time of discharge: Pending orders 09/07/18 12:58 Culture,Blood [BC] Stat Date of Encounter: 09/11/18 Time of Encounter: 10:20 Hospital course: Ms. Portillo is a 78 year old female - Time Spent with Patient Total time spent providing and/or coordinating discharge services: Date of admission: 09/08/18 03:34 Primary care physician: Yosi Gonzalez Jr, MD Consults: 09/07/18 13:21 Consult to Urology [CONS] Stat Consulting Provider: Urology [facility] Reason for Consult: right sided hydronephrosis Time Notified: 13:21 Call Completed: Yes 09/07/18 16:44 Consult to Cardiology [CONS] Routine Comment: Consulting Provider: Cardiology [place] Reason for Consult: chest pain, elevated troponins. Heparin drip. will call after EKG. Call Completed: Yes 09/09/18 09:47 Consult to Cardiac Rehabilitation-Phase1 [CONS] Routine Comment: Reason for Consult: NSTEMI Call Completed: No - Constitutional Vitals: Temp Pulse Resp BP Pulse Ox 98.5 F 103 18 169/96 93 09/11/18 11:45 09/11/18 11:45 09/11/18 11:45 09/11/18 11:45 09/11/18 11:45 - Attending Attestation I saw evaluated and examined this patient and my medical decision-making was reviewed with the Resident Physician, Jackie Newman. I agree with the documented findings, disposition and treatment plan as described except to any changes set forth below. We independently had [id number] contact with the patient. Patient with history of diabetes, hypertension and hyperlipidemia was hospitalized here with elevated troponins concerning for non-ST elevation NC. She also had chest pain initially. Troponins went up as high as 8.16. She underwent left heart catheterization which showed severe 1 vessel coronary artery disease and also severe segmental LV dysfunction with EF of 35% concerning for Takotsubo cardiomyopathy. Cardiology recommended dual antiplatelet therapy. Patient also had moderate to severe right-sided hydroureteronephrosis. Urology was consulted. A right-sided ureteral stent has been placed. Patient is doing well since then. She is clinically stable for discharge at this time. She will complete antibiotic course with Levaquin. She will continue dual antiplatelet therapy with aspirin and Plavix. Her blood sugars have been elevated here. She is advised to follow up with her primary care provider for further management and better control of her blood sugars. Addendum entered and electronically signed by Jackie Newman 09/11/18 13:40: Addendum entered and electronically signed by Lora Cardoza MD 09/11/18 14:39: Total time spent providing and/or coordinating discharge services: 10 min Addendum entered and electronically signed by Jackie Newman 09/11/18 16:00: Addendum entered and electronically signed by ARABELLA Hartman 09/13/18 07:19: Viewed and signed.
[2018-09-11 08:08] LABS: Basophils % 0.1 %; Hematocrit 35.8 % (35.3-44.9); Hemoglobin 11.7 g/dL (11.5-15.4); Immature Granulocytes % 0.5 % (0-4); Lymphocytes # 0.6 K/mcL (0.6-4.6); Lymphocytes % 5.5 %; Mean Corpuscular HGB Conc 32.7 g/dL (31.6-35.5); Mean Corpuscular Volume 88.8 fL (83.0-100.0); Mean Platelet Volume 9.5 fL (9.4-12.4); Monocytes # 0.5 K/mcL (0.0-1.3); Monocytes % 4.1 %; Neutrophils # 9.8 K/mcL (1.6-8.9); Platelet Count 226 K/mcL (140-400); Red Blood Count 4.03 M/mcL (3.82-4.97); Segmented Neutrophils % 89.8 %
[2018-09-11] MEDS: Insulin LISPRO 300 UNITS/3 ML VIAL SQ SCH ×3 (08:44→17:52)
[2018-09-11 08:56] LABS: BUN/Creatinine Ratio 21 (6-26); Blood Urea Nitrogen 16 mg/dL (8-23); Calcium 9.2 mg/dL (8.6-10.3); Carbon Dioxide 24 mEq/L (23-29); Chloride 107 mEq/L (98-107); Glucose 267 mg/dL (70-105); Osmolality,Calculated 301 (280-300); Potassium 4.7 mEq/L (3.5-5.1); Sodium 140 mEq/L (136-145); eGFR For Non-African Americans > 60 (> 60)
--- NOTE | 2018-09-11 08:58 | Urology Progress Note ---
<Liliya Fernandez N - Last Filed: 09/11/18 08:56> Date of Encounter: 09/11/18 Time of Encounter: 08:40 - Assessment and Plan (1) Hydronephrosis Current Visit: Yes Status: Acute Assessment and plan: Patient is a 78-year-old female who presents one day postoperatively from cystoscopy, right retrograde ureteral pyelography, right double-J stent placement under fluoroscopic guidance. Urine culture is positive for pans ensitive Escherichia coli, and patient has received IV Levaquin. Patient has remained afebrile, and vital signs are stable. Discussed postoperative expectations with ureteral stent. Patient verbalizes understanding and agrees to follow-up outpatient within 2 weeks. The primary team may choose oral antibiotics for discharge. I recommend a 10 day course. (2) NSTEMI (non-ST elevated myocardial infarction) Current Visit: Yes Status: Acute (3) Pyelonephritis Current Visit: Yes Status: Acute Progress Note Subjective: no new complaints, feels better Narrative: POD #1. Patient seen and examined sitting upright in bed in no apparent distress. Patient is tolerating normal diet and voiding without difficulty. Patient reports some frequency and dysuria. I explained this is common with indwelling ureteral stents. Patient denies fever, chills, flank pain. Objective Initial Vital Signs Temp Pulse Resp BP Pulse Ox 97.5 F L 71 18 179/116 97 09/07/18 08:51 09/07/18 08:51 09/07/18 08:51 09/07/18 08:51 09/07/18 08:51 - General physical appearance Present: well developed, well nourished, no distress, no pain - Respiratory Present: normal expansion, normal respiratory effort - Abdomen Present: soft, non tender - Integumentary Present: no rash, no abnormal pigmentation - Musculoskeletal Present: normal posture - Psychiatric Present: oriented to time, oriented to person, oriented to place, speech is normal, memory intact - Labs 09/11/18 07:45 09/10/18 04:18 Consult Discharge Plan - Plan Additional Instructions: RISK FACTORS: STOP SMOKING: If you smoke, STOP. Smoking or tobacco use significantly increases your risk of heart disease because nicotine causes the arteries to narrow or constrict. It also causes fats to stick to the artery. Your chances of having a heart attack are greatly increased if you continue to smoke. For more information, call the education line for smoking cessation 5-037-DFTGCVC EAT A LOW FAT/CHOLESTEROL/SODIUM DIET: This diet may help reduce your chances of having a heart attack. LIFTING: Avoid lifting anything more than 10 pounds for 5-7 days Prior to straining, laughing, sneezing and/or coughing, apply manual pressure directly over insertion site. ACTIVITY: You may walk or climb stairs as tolerated You can resume sexual activity as tolerated In general, you are encouraged to engage in a minimum of 30 minutes or more of moderate intensity physical activity, such as brisk walking, daily or at least 3-4 times weekly BATHING Do not submerge the site into water (bath tub, hot tub, swimming pool) for 1 week. This can be a source for infection into the blood stream. You may shower after 24 hours SITE CARE: After 24 hours, you may remove the dressing and leave the site open to air. Keep the site clean and dry. Clean gently and pat dry. You can expect bruising and tenderness that gradually resolve within a week or two. Return to work as instructed per your physician Resume driving as instructed per physician Keep all scheduled follow up appointments Resume medications as instructed IMPORTANT: If prescribed a Platelet Aggregation Inhibitor such as, Plavix, Brilinta or Effient: Duration of therapy is minimum one year These medications are often used in combination with Aspirin in prevention of future heart attacks Never discontinue unless consult with your Director Of Solutions Architecture STROKE (CVA) Risk factors for a stroke are: Age, cigarette smoking, diabetes, excessive alcohol consumption, family history, high blood pressure, overweight, physical inactivity, prior stroke, heart attack, diagnosis of carotid artery stenosis or other artery disease. Warning signs: Sudden numbness or weakness of the face, arm or leg; especially on one side of the body, sudden confusion, trouble speaking or understanding, sudden trouble seeing in one or both eyes, sudden trouble walking, dizziness, loss of balance or coordination, sudden severe headache with no cause. Call 911 or go to the Emergency Room. CONGESTIVE HEART FAILURE: If you have been diagnosed with Congestive Heart Failure (CHF) and your symptoms return, make an appointment with your physician Weigh yourself daily. Notify your physician if you have a weight gain of two or more pounds in one day or five or more pounds in one week. If you experience any difficulty breathing, please call 911 BLEEDING: Although the risk of bleeding is minimal, it can happen. If you have any bleeding from the site, apply firm pressure above the puncture site for 10-15 minutes. If the bleeding does not stop, continue manual pressure and call 911 Contact your physician if: You develop a fever greater than 101 degrees Fahrenheit Your site becomes reddened or has any drainage You have an increase in pain or burning at the site or if a large knot forms at the site. If you experience chest pain, shortness of breath, dizziness, or extreme tiredness, stop the activity and rest. Please notify your physicians office if you experience any of these symptoms and they are not relieved by rest please call 911! Referrals: Leander Morales CNP [Advanced Practice Nurse] - (office will call patient at home with follow up appointment) Yosi Gonzalez Jr, MD [Primary Care Provider] - 09/17/18 8:30 am <Danis Vazquez - Last Filed: 09/11/18 12:39> Date of Encounter: 09/11/18 - Assessment and Plan (1) Hydronephrosis Current Visit: Yes Status: Acute Assessment and plan: Patient seen and examined independently. Agree with assessment and plan of HOSSEIN Fernandez Qualifiers: Hydronephrosis type: unspecified Qualified Code(s): N13.30 - Unspecified hydronephrosis (2) Abdominal pain Current Visit: Yes Status: Acute Qualifiers: Abdominal location: right upper quadrant Qualified Code(s): R10.11 - Right upper quadrant pain (3) Pyelonephritis Current Visit: Yes Status: Acute (4) Anticoagulation adequate Current Visit: Yes Status: Acute Objective Initial Vital Signs Temp Pulse Resp BP Pulse Ox 97.5 F L 71 18 179/116 97 09/07/18 08:51 09/07/18 08:51 09/07/18 08:51 09/07/18 08:51 09/07/18 08:51 - Labs 09/11/18 07:45 09/11/18 07:45 Diabetes panel 09/11/18 Range/Units 07:45 Sodium 140 (136-145) mEq/L Potassium 4.7 (3.5-5.1) mEq/L Chloride 107 (98-107) mEq/L Carbon Dioxide 24 (23-29) mEq/L BUN 16 (8-23) mg/dL Creatinine 0.76 (0.60-1.20) mg/dL Glucose 267 H (70-105) mg/dL Calcium 9.2 (8.6-10.3) mg/dL Calcium panel 09/11/18 Range/Units 07:45 Calcium 9.2 (8.6-10.3) mg/dL Pituitary panel 09/11/18 Range/Units 07:45 Sodium 140 (136-145) mEq/L Potassium 4.7 (3.5-5.1) mEq/L Chloride 107 (98-107) mEq/L Carbon Dioxide 24 (23-29) mEq/L BUN 16 (8-23) mg/dL Creatinine 0.76 (0.60-1.20) mg/dL Glucose 267 H (70-105) mg/dL Calcium 9.2 (8.6-10.3) mg/dL Adrenal panel 09/11/18 Range/Units 07:45 Sodium 140 (136-145) mEq/L Potassium 4.7 (3.5-5.1) mEq/L Chloride 107 (98-107) mEq/L Carbon Dioxide 24 (23-29) mEq/L BUN 16 (8-23) mg/dL Creatinine 0.76 (0.60-1.20) mg/dL Glucose 267 H (70-105) mg/dL Calcium 9.2 (8.6-10.3) mg/dL
[2018-09-11] MEDS ORDERED: Levofloxacin 750 MG/150 ML 750 MG/150 ML BAG IVPB SCH (09:00)
[2018-09-11] MEDS ORDERED: Metoprolol XL (24 HR) Succ 25 MG TAB.ER.24H PO SCH (09:00)
[2018-09-11] MEDS ORDERED: Aspirin 81 MG TAB.CHEW PO SCH (09:00)
[2018-09-11] MEDS ORDERED: Insulin LISPRO 300 UNITS/3 ML VIAL SQ ONE (12:45)
[2018-09-11] MEDS: Nitroglycerin 25 MG/250 ML INFUS..BTL IVC SCH (13:07)
[2018-09-11 16:20] VITALS: BP 128/76
--- NOTE | 2018-09-11 19:49 | Electrocardiograph Report ---
[place] [address] Test Date: 2018-09-07 Pat Name: Marjorie Portillo Department: 113 Room: 2N07 Gender: F Population Geneticist: [id number] : 1940 Requested By: [id number] Order Number: [id number] Reading MD: Tami Cortez Measurements Intervals [place] Rate: 71 P: 38 NC: 198 QRS: 148 QRSD: 120 T: 52 QT: 403 QTc: 426 Interpretive Statements SINUS RHYTHM RIGHT BUNDLE BRANCH BLOCK NONSPECIFIC ST ABNORMALITIES Electronically Signed On 09-11-2018 19:48:17 EST by Tami Cortez
--- NOTE | 2018-09-11 21:46 | Electrocardiograph Report ---
[address] [address] Test Date: 2018-09-07 Pat Name: Marjorie Portillo Department: 113 Room: 2N07 Gender: F Invasive Cardiovascular Technologist: TIM : 1940 Requested By: Tyron Hilton Order Number: [id number] Reading MD: Luis Alberto Birch Measurements Intervals [place] Rate: 87 P: 63 PA: 180 QRS: 269 QRSD: 140 T: 48 QT: 390 QTc: 435 Interpretive Statements SINUS RHYTHM MARKED RIGHT AXIS DEVIATION RIGHT BUNDLE BRANCH BLOCK Electronically Signed On 09-11-2018 21:45:14 EST by Luis Alberto Birch
== END 2018-09-11 18:38 | disposition home or self-care (01) | DRG 659 ==
LOC: EMEROOARM 08:50 → 3BNU 08:50 → SUATTDRO 09-08 03:34 → 2NNU 09-08 11:57
PROVIDERS: ADMIT Internal Medicine; ATTEND Internal Medicine

== ENCOUNTER 2020-06-28 09:33 | Inpatient (IN) ==
[2020-06-28] MEDS ORDERED: Aspirin 81 MG TAB.CHEW PO ONE (09:53)
[2020-06-28 10:03] LABS: Basophils % 0.2 %; Hematocrit 37.7 % (35.3-44.9); Hemoglobin 11.3 g/dL (11.5-15.4); Immature Granulocytes % 0.5 % (0-4); Lymphocytes # 0.7 K/mcL (0.6-4.6); Lymphocytes % 5.7 %; Mean Corpuscular Hemoglobin 23.3 pg (28.0-33.3); Mean Corpuscular Volume 77.7 fL (83.0-100.0); Mean Platelet Volume 9.4 fL (9.4-12.4); Monocytes # 0.4 K/mcL (0.0-1.3); Monocytes % 2.7 %; Neutrophils # 11.6 K/mcL (1.6-8.9); Platelet Count 430 K/mcL (140-400); Red Blood Count 4.85 M/mcL (3.82-4.97); Red Cell Distribution Width 16.1 % (11.5-14.5); Segmented Neutrophils % 90.9 %; White Blood Count 12.8 K/mcL (4.3-11.1)
[2020-06-28 10:26] LABS: BUN/Creatinine Ratio 22 (6-26); Blood Urea Nitrogen 15 mg/dL (8-23); Calcium 10.2 mg/dL (8.6-10.3); Carbon Dioxide 28 mEq/L (23-29); Chloride 98 mEq/L (98-107); Glucose 350 mg/dL (70-105); Osmolality,Calculated 303 (280-300); Potassium 4.1 mEq/L (3.5-5.1); Sodium 139 mEq/L (136-145); Troponin I 2.06 ng/mL (< 0.04); eGFR For African Americans > 60 (> 60); eGFR For Non-African Americans > 60 (> 60)
[2020-06-28 10:39] LABS: INR 1.3; Prothrombin Time 14.5 Seconds (9.4-12.1)
[2020-06-28] MEDS ORDERED: *HR* Heparin 5,000 UNIT/ML VIAL IVP ONE (10:44)
[2020-06-28] MEDS ORDERED: *HR* Heparin 5,000 UNIT/ML VIAL IVP PRN (10:44)
[2020-06-28] MEDS ORDERED: Naloxone 0.4 MG/ML INJ IVP PRN (10:49)
[2020-06-28] MEDS ORDERED: Insulin Human Regular 5 UNIT in 0.9 % Sodium Chloride 10 ML IV ONE (10:49)
[2020-06-28] MEDS ORDERED: Ondansetron 4 MG/2 ML VIAL IVP PRN (10:49)
[2020-06-28] MEDS ORDERED: Dextrose Gel 15 GM/37.5 ML TUBE PO PRN ×2 (10:51)
[2020-06-28] MEDS ORDERED: *HR* Dextrose 50 % in Water (Vial) 50 ML VIAL IVP PRN (10:51)
[2020-06-28] MEDS ORDERED: D5% in Water 1,000 ML IVC PRN (10:51)
[2020-06-28] MEDS: Heparin 25,000UNIT/250ML 1/2NS 25,000 UNIT/250 ML IV.SOLN IVC SCH (11:03)
[2020-06-28] MEDS ORDERED: Perflutren Lipid Microsphere 1.3 ML in 0.9 % Sodium Chloride 8.7 ML IVP PRN (11:22)
[2020-06-28 11:24] LABS: Hematocrit 33.1 % (35.3-44.9); Mean Corpuscular HGB Conc 30.2 g/dL (31.6-35.5); Mean Corpuscular Hemoglobin 23.1 pg (28.0-33.3); Mean Corpuscular Volume 76.4 fL (83.0-100.0); Mean Platelet Volume 9.3 fL (9.4-12.4); Platelet Count 360 K/mcL (140-400); Red Blood Count 4.33 M/mcL (3.82-4.97); White Blood Count 12.5 K/mcL (4.3-11.1)
[2020-06-28] MEDS ORDERED: Nitroglycerin 0.4 MG TAB.SUBL SL PRN (11:28)
[2020-06-28 11:36] LABS: Heparin anti-factor XA UFH 0.4 IU/mL (0.30-0.70)
[2020-06-28 11:47] LABS: INR 1.3; Prothrombin Time 14.2 Seconds (9.4-12.1)
[2020-06-28] MEDS: Insulin LISPRO 300 UNITS/3 ML VIAL SQ SCH ×3 (14:00→20:27)
[2020-06-28 17:37] LABS: Bilirubin,Urine Negative (Negative); Blood,Urine Small (Negative); Clarity,Urine Clear (Clear); Color,Urine Colorless (Yellow); Glucose,Urine (UA) 300 mg/dL (Normal); Ketones,Urine Negative (Negative); Leukocyte Esterase,Urine Trace (Negative); Mucus,Urine Few per lpf (None-Few); Nitrite,Urine Negative (Negative); PH,Urine 6.5 pH Units (5.0-8.0); Protein,Urine Negative (Neg-Trace); RBC,Urine 15-30 per hpf (0-3); Urobilinogen,Urine Normal (Normal)
[2020-06-28] MEDS ORDERED: CELECOXIB 50 MG PO SCH (21:00)
[2020-06-29 03:33] LABS: Basophils % 0.2 %; Eosinophils # 0.1 K/mcL (0.0-0.6); Eosinophils % 1.5 %; Hematocrit 30.9 % (35.3-44.9); Hemoglobin 9.2 g/dL (11.5-15.4); Immature Granulocytes % 0.4 % (0-4); Lymphocytes # 2.1 K/mcL (0.6-4.6); Lymphocytes % 25.3 %; Mean Corpuscular HGB Conc 29.8 g/dL (31.6-35.5); Mean Corpuscular Volume 77.3 fL (83.0-100.0); Mean Platelet Volume 9.3 fL (9.4-12.4); Monocytes # 0.6 K/mcL (0.0-1.3); Monocytes % 7.3 %; Neutrophils # 5.4 K/mcL (1.6-8.9); Platelet Count 307 K/mcL (140-400); Red Cell Distribution Width 16.2 % (11.5-14.5); Segmented Neutrophils % 65.3 %; White Blood Count 8.2 K/mcL (4.3-11.1)
[2020-06-29 03:50] LABS: BUN/Creatinine Ratio 21 (6-26); Blood Urea Nitrogen 12 mg/dL (8-23); Calcium 9.2 mg/dL (8.6-10.3); Carbon Dioxide 28 mEq/L (23-29); Chloride 103 mEq/L (98-107); Glucose 239 mg/dL (70-105); Magnesium 1.1 mg/dL (1.6-2.6); Osmolality,Calculated 294 (280-300); Potassium 3.5 mEq/L (3.5-5.1); Sodium 138 mEq/L (136-145); eGFR For African Americans > 60 (> 60); eGFR For Non-African Americans > 60 (> 60)
[2020-06-29] MEDS: Insulin LISPRO 300 UNITS/3 ML VIAL SQ SCH ×5 (07:48→22:07)
[2020-06-29] MEDS: lisinopriL 10 MG TABLET PO SCH (09:04)
[2020-06-29] MEDS: Famotidine 20 MG TABLET PO SCH (09:04)
[2020-06-29] MEDS: Ascorbic Acid 500 MG TABLET PO SCH (09:04)
[2020-06-29 13:10] LABS: Hematocrit 34.9 % (35.3-44.9); Hemoglobin 10.4 g/dL (11.5-15.4)
[2020-06-29] MEDS ORDERED: Heparin 25,000UNIT/250ML 1/2NS 25,000 UNIT/250 ML IV.SOLN IVC SCH (14:15)
[2020-06-29] MEDS: Heparin 25,000UNIT/250ML 1/2NS 25,000 UNIT/250 ML IV.SOLN IVC SCH (14:57)
[2020-06-29] MEDS ORDERED: SODIUM CHLORIDE/NAHCO3/KCL/PEG 4,000 ML SOLN.RECON PO ONE (17:00)
[2020-06-29] MEDS: carvediloL 6.25 MG TABLET PO SCH (17:06)
[2020-06-29 19:28] LABS: Hematocrit 33.3 % (35.3-44.9); Hemoglobin 10.1 g/dL (11.5-15.4)
[2020-06-29] MEDS: *HR* Heparin 5,000 UNIT/ML VIAL IVP PRN (22:46)
[2020-06-30 05:01] LABS: Basophils % 0.3 %; Eosinophils # 0.2 K/mcL (0.0-0.6); Eosinophils % 2.5 %; Hematocrit 33.8 % (35.3-44.9); Hemoglobin 10.2 g/dL (11.5-15.4); Immature Granulocytes % 0.4 % (0-4); Lymphocytes # 1.4 K/mcL (0.6-4.6); Lymphocytes % 18.6 %; Mean Corpuscular HGB Conc 30.2 g/dL (31.6-35.5); Mean Corpuscular Hemoglobin 23.9 pg (28.0-33.3); Mean Corpuscular Volume 79.3 fL (83.0-100.0); Mean Platelet Volume 9.4 fL (9.4-12.4); Monocytes # 0.5 K/mcL (0.0-1.3); Monocytes % 7.2 %; Neutrophils # 5.2 K/mcL (1.6-8.9); Platelet Count 287 K/mcL (140-400); Red Blood Count 4.26 M/mcL (3.82-4.97); Red Cell Distribution Width 16.3 % (11.5-14.5); White Blood Count 7.3 K/mcL (4.3-11.1)
[2020-06-30 05:16] LABS: BUN/Creatinine Ratio 13 (6-26); Blood Urea Nitrogen 7 mg/dL (8-23); Calcium 8.7 mg/dL (8.6-10.3); Carbon Dioxide 19 mEq/L (23-29); Chloride 111 mEq/L (98-107); Glucose 146 mg/dL (70-105); Magnesium 1.3 mg/dL (1.6-2.6); Osmolality,Calculated 291 (280-300); Potassium 3.3 mEq/L (3.5-5.1); Sodium 140 mEq/L (136-145); eGFR For African Americans > 60 (> 60); eGFR For Non-African Americans > 60 (> 60)
[2020-06-30 05:20] LABS: % Iron Saturation 9 % (15-50); Iron 31 mcg/dL (50-170); Transferrin 236 mg/dL (203-362)
[2020-06-30 05:37] LABS: Ferritin 13 ng/mL (10-120)
[2020-06-30 05:42] LABS: Folate 12.9 ng/mL (3.0-16.0)
[2020-06-30] MEDS: Famotidine 20 MG TABLET PO SCH (07:51)
[2020-06-30] MEDS: carvediloL 6.25 MG TABLET PO SCH ×2 (07:52→16:41)
[2020-06-30] MEDS: lisinopriL 10 MG TABLET PO SCH (07:52)
[2020-06-30] MEDS: Ascorbic Acid 500 MG TABLET PO SCH (07:52)
[2020-06-30] MEDS: Insulin LISPRO 300 UNITS/3 ML VIAL SQ SCH ×4 (07:53→20:42)
[2020-06-30 08:06] LABS: Estimated Average Glucose 194 mg/dl
[2020-06-30] MEDS ORDERED: *HR* PHENYLEPHRINE 1,000 MCG/10 ML SYRINGE IVP ONE (14:02)
[2020-06-30] MEDS: *HR* Heparin 5,000 UNIT/ML VIAL IVP PRN (22:32)
[2020-07-01 02:47] LABS: Basophils % 0.3 %; Eosinophils # 0.2 K/mcL (0.0-0.6); Hematocrit 27.9 % (35.3-44.9); Immature Granulocytes % 0.3 % (0-4); Lymphocytes # 1.3 K/mcL (0.6-4.6); Lymphocytes % 17.3 %; Mean Corpuscular HGB Conc 30.5 g/dL (31.6-35.5); Mean Corpuscular Hemoglobin 23.3 pg (28.0-33.3); Mean Corpuscular Volume 76.4 fL (83.0-100.0); Mean Platelet Volume 9.6 fL (9.4-12.4); Monocytes # 0.6 K/mcL (0.0-1.3); Monocytes % 7.9 %; Neutrophils # 5.5 K/mcL (1.6-8.9); Platelet Count 265 K/mcL (140-400); Red Blood Count 3.65 M/mcL (3.82-4.97); Red Cell Distribution Width 16.3 % (11.5-14.5); Segmented Neutrophils % 71.2 %; White Blood Count 7.7 K/mcL (4.3-11.1)
[2020-07-01 02:49] LABS: Hemoglobin 8.5 g/dL (11.5-15.4)
[2020-07-01 03:05] LABS: BUN/Creatinine Ratio 12 (6-26); Blood Urea Nitrogen 6 mg/dL (8-23); Calcium 8.3 mg/dL (8.6-10.3); Carbon Dioxide 21 mEq/L (23-29); Chloride 109 mEq/L (98-107); Glucose 255 mg/dL (70-105); Magnesium 1.4 mg/dL (1.6-2.6); Osmolality,Calculated 290 (280-300); Potassium 3.6 mEq/L (3.5-5.1); Sodium 137 mEq/L (136-145); eGFR For African Americans > 60 (> 60); eGFR For Non-African Americans > 60 (> 60)
[2020-07-01] MEDS: Ascorbic Acid 500 MG TABLET PO SCH (08:19)
[2020-07-01] MEDS: carvediloL 6.25 MG TABLET PO SCH ×2 (08:19→17:15)
[2020-07-01] MEDS: lisinopriL 10 MG TABLET PO SCH (08:19)
[2020-07-01] MEDS: Heparin 25,000UNIT/250ML 1/2NS 25,000 UNIT/250 ML IV.SOLN IVC SCH ×2 (08:20→19:01)
[2020-07-01] MEDS: Insulin LISPRO 300 UNITS/3 ML VIAL SQ SCH ×4 (08:21→20:44)
[2020-07-01] MEDS: Aspirin Enteric Coated 81 MG Tablet PO SCH (12:31)
[2020-07-01] MEDS: Pantoprazole 40 MG VIAL IVP SCH (17:15)
[2020-07-01] MEDS: Magnesium Oxide 400 MG TABLET PO SCH (20:44)
[2020-07-02 05:08] LABS: Basophils % 0.2 %; Eosinophils # 0.2 K/mcL (0.0-0.6); Eosinophils % 2.1 %; Hematocrit 29.5 % (35.3-44.9); Immature Granulocytes % 0.3 % (0-4); Lymphocytes # 1.4 K/mcL (0.6-4.6); Lymphocytes % 16.8 %; Mean Corpuscular HGB Conc 30.5 g/dL (31.6-35.5); Mean Corpuscular Hemoglobin 23.6 pg (28.0-33.3); Mean Corpuscular Volume 77.2 fL (83.0-100.0); Monocytes # 0.8 K/mcL (0.0-1.3); Monocytes % 9.1 %; Neutrophils # 6.1 K/mcL (1.6-8.9); Platelet Count 248 K/mcL (140-400); Red Blood Count 3.82 M/mcL (3.82-4.97); Red Cell Distribution Width 16.4 % (11.5-14.5); Segmented Neutrophils % 71.5 %; White Blood Count 8.6 K/mcL (4.3-11.1)
[2020-07-02] MEDS: Pantoprazole 40 MG VIAL IVP SCH ×2 (05:14→17:04)
[2020-07-02 05:25] LABS: BUN/Creatinine Ratio 12 (6-26); Blood Urea Nitrogen 7 mg/dL (8-23); Calcium 8.5 mg/dL (8.6-10.3); Carbon Dioxide 24 mEq/L (23-29); Chloride 107 mEq/L (98-107); Glucose 231 mg/dL (70-105); Magnesium 1.4 mg/dL (1.6-2.6); Osmolality,Calculated 289 (280-300); Potassium 3.8 mEq/L (3.5-5.1); Sodium 137 mEq/L (136-145); eGFR For African Americans > 60 (> 60); eGFR For Non-African Americans > 60 (> 60)
[2020-07-02] MEDS: Insulin LISPRO 300 UNITS/3 ML VIAL SQ SCH ×4 (09:09→22:17)
[2020-07-02] MEDS: Ascorbic Acid 500 MG TABLET PO SCH (09:09)
[2020-07-02] MEDS: carvediloL 6.25 MG TABLET PO SCH ×2 (09:09→17:04)
[2020-07-02] MEDS: polyethylene glycoL 3350 17 GM POWD.PACK PO SCH (09:09)
[2020-07-02] MEDS: Magnesium Oxide 400 MG TABLET PO SCH ×2 (09:09→22:16)
[2020-07-02] MEDS: lisinopriL 10 MG TABLET PO SCH (09:10)
[2020-07-02] MEDS: Aspirin Enteric Coated 81 MG Tablet PO SCH (09:10)
[2020-07-03 04:56] LABS: Basophils % 0.1 %; Eosinophils # 0.1 K/mcL (0.0-0.6); Eosinophils % 1.1 %; Hematocrit 28.9 % (35.3-44.9); Immature Granulocytes % 0.4 % (0-4); Lymphocytes # 1.4 K/mcL (0.6-4.6); Lymphocytes % 16.1 %; Mean Corpuscular HGB Conc 31.1 g/dL (31.6-35.5); Mean Corpuscular Hemoglobin 23.9 pg (28.0-33.3); Mean Corpuscular Volume 76.7 fL (83.0-100.0); Mean Platelet Volume 9.4 fL (9.4-12.4); Monocytes % 10.7 %; Neutrophils # 6.4 K/mcL (1.6-8.9); Platelet Count 265 K/mcL (140-400); Red Blood Count 3.77 M/mcL (3.82-4.97); Red Cell Distribution Width 16.9 % (11.5-14.5); Segmented Neutrophils % 71.6 %
[2020-07-03 05:09] LABS: BUN/Creatinine Ratio 12 (6-26); Blood Urea Nitrogen 7 mg/dL (8-23); Calcium 8.7 mg/dL (8.6-10.3); Carbon Dioxide 24 mEq/L (23-29); Chloride 102 mEq/L (98-107); Glucose 244 mg/dL (70-105); Magnesium 1.6 mg/dL (1.6-2.6); Osmolality,Calculated 286 (280-300); Phosphorous 3.1 mg/dL (2.7-4.5); Potassium 3.7 mEq/L (3.5-5.1); Sodium 135 mEq/L (136-145); eGFR For African Americans > 60 (> 60); eGFR For Non-African Americans > 60 (> 60)
[2020-07-03] MEDS: Pantoprazole 40 MG VIAL IVP SCH ×2 (07:24→17:47)
[2020-07-03] MEDS ORDERED: Acetaminophen 325 MG TABLET PO PRN ×2 (10:47→19:50)
[2020-07-03] MEDS: Ascorbic Acid 500 MG TABLET PO SCH (10:51)
[2020-07-03] MEDS: carvediloL 6.25 MG TABLET PO SCH ×2 (10:51→16:54)
[2020-07-03] MEDS: lisinopriL 10 MG TABLET PO SCH (10:51)
[2020-07-03] MEDS: Magnesium Oxide 400 MG TABLET PO SCH ×2 (10:51→19:59)
[2020-07-03] MEDS: polyethylene glycoL 3350 17 GM POWD.PACK PO SCH (10:52)
[2020-07-03] MEDS: Insulin LISPRO 300 UNITS/3 ML VIAL SQ SCH ×5 (10:52→16:54)
[2020-07-03] MEDS ORDERED: Insulin LISPRO 300 UNITS/3 ML VIAL SQ SCH (11:39)
[2020-07-03] MEDS ORDERED: Insulin DETEMIR 100 UNIT/ML X5UNITS SQ SCH (11:45)
[2020-07-03] MEDS: Insulin DETEMIR 100 UNIT/ML X5UNITS SQ SCH (12:42)
[2020-07-03] MEDS: Aspirin 81 MG TAB.CHEW PO SCH (14:55)
[2020-07-03] MEDS ORDERED: 0.9 % Sodium Chloride 2,000 ML ONE (16:27)
[2020-07-03] MEDS ORDERED: *HR* Heparin 10,000 UNIT/10 ML VIAL ONE (16:27)
[2020-07-03] MEDS ORDERED: ISOVUE-370 200 ML INFUS..BTL ONE (16:27)
[2020-07-03] MEDS ORDERED: Heparin 1,000 UNITS/500 mL 500 ML ONE (16:27)
[2020-07-03] MEDS ORDERED: Nitroglycerin 1,000 MCG/10 ML VIAL IV ONE (16:28)
[2020-07-03] MEDS ORDERED: *HR* FentaNYL (PF) 100 MCG/2 ML VIAL ONE (16:35)
[2020-07-03] MEDS ORDERED: *HR* Midazolam HCl 2 MG/2 ML VIAL ONE (16:36)
[2020-07-04 02:30] LABS: Basophils % 0.1 %; Eosinophils # 0.1 K/mcL (0.0-0.6); Eosinophils % 1.4 %; Hematocrit 28.5 % (35.3-44.9); Hemoglobin 8.9 g/dL (11.5-15.4); Immature Granulocytes % 0.4 % (0-4); Lymphocytes # 1.2 K/mcL (0.6-4.6); Lymphocytes % 13.4 %; Mean Corpuscular HGB Conc 31.2 g/dL (31.6-35.5); Mean Corpuscular Hemoglobin 24.3 pg (28.0-33.3); Mean Corpuscular Volume 77.9 fL (83.0-100.0); Mean Platelet Volume 9.2 fL (9.4-12.4); Monocytes # 0.9 K/mcL (0.0-1.3); Monocytes % 9.4 %; Neutrophils # 6.9 K/mcL (1.6-8.9); Platelet Count 273 K/mcL (140-400); Red Blood Count 3.66 M/mcL (3.82-4.97); Red Cell Distribution Width 17.3 % (11.5-14.5); Segmented Neutrophils % 75.3 %; White Blood Count 9.2 K/mcL (4.3-11.1)
[2020-07-04 02:49] LABS: BUN/Creatinine Ratio 15 (6-26); Blood Urea Nitrogen 9 mg/dL (8-23); Calcium 8.7 mg/dL (8.6-10.3); Carbon Dioxide 24 mEq/L (23-29); Chloride 104 mEq/L (98-107); Glucose 203 mg/dL (70-105); Osmolality,Calculated 286 (280-300); Potassium 3.7 mEq/L (3.5-5.1); Sodium 136 mEq/L (136-145); eGFR For African Americans > 60 (> 60); eGFR For Non-African Americans > 60 (> 60)
[2020-07-04] MEDS: Pantoprazole 40 MG VIAL IVP SCH (05:50)
[2020-07-04] MEDS: Ascorbic Acid 500 MG TABLET PO SCH (08:31)
[2020-07-04] MEDS: carvediloL 6.25 MG TABLET PO SCH ×2 (08:31→16:58)
[2020-07-04] MEDS: Insulin LISPRO 300 UNITS/3 ML VIAL SQ SCH ×6 (08:32→17:00)
[2020-07-04] MEDS: Aspirin 81 MG TAB.CHEW PO SCH (08:32)
[2020-07-04] MEDS: Magnesium Oxide 400 MG TABLET PO SCH (08:32)
[2020-07-04] MEDS: lisinopriL 10 MG TABLET PO SCH (08:32)
[2020-07-04] MEDS: polyethylene glycoL 3350 17 GM POWD.PACK PO SCH (08:33)
[2020-07-04] MEDS ORDERED: Apixaban 5 MG TABLET PO SCH (09:00)
[2020-07-04] MEDS: Insulin DETEMIR 100 UNIT/ML X5UNITS SQ SCH (09:24)
[2020-07-04 15:45] VITALS: BP 122/64
[2020-07-05] MEDS ORDERED: Multivit/Ca/Min/Fe/FA 1 TAB TABLET PO SCH (09:00)
== END 2020-07-04 17:15 | disposition home health service (06) | DRG 281 ==
LOC: 2ANU 09:33 → EMEROOARM 09:33 → SUATTDRO 11:12 → 2ANU 11:53 → SUATTDRO 06-30 16:31
PROVIDERS: ADMIT Family Medicine; ATTEND Internal Medicine

== ENCOUNTER 2020-11-08 18:42 | Inpatient (IN) ==
[2020-11-08] MEDS ORDERED: *HR* FentaNYL (PF) 100 MCG/2 ML VIAL IVP ONE (18:59)
[2020-11-08 19:27] LABS: INR 1.5; Prothrombin Time 16.8 Seconds (9.4-12.1)
[2020-11-08 19:28] LABS: Basophils % 0.4 %; Eosinophils # 0.3 K/mcL (0.0-0.6); Hematocrit 35.2 % (35.3-44.9); Immature Granulocytes % 0.6 % (0-4); Lymphocytes # 1.4 K/mcL (0.6-4.6); Lymphocytes % 14.8 %; Mean Corpuscular HGB Conc 31.3 g/dL (31.6-35.5); Mean Corpuscular Hemoglobin 29.3 pg (28.0-33.3); Mean Corpuscular Volume 93.6 fL (83.0-100.0); Mean Platelet Volume 8.9 fL (9.4-12.4); Monocytes # 0.8 K/mcL (0.0-1.3); Monocytes % 8.4 %; Neutrophils # 6.8 K/mcL (1.6-8.9); Platelet Count 385 K/mcL (140-400); Red Blood Count 3.76 M/mcL (3.82-4.97); Red Cell Distribution Width 13.7 % (11.5-14.5); Segmented Neutrophils % 72.8 %; White Blood Count 9.3 K/mcL (4.3-11.1)
[2020-11-08 19:42] LABS: BUN/Creatinine Ratio 21 (6-26); Blood Urea Nitrogen 13 mg/dL (8-23); Calcium 9.5 mg/dL (8.6-10.3); Carbon Dioxide 26 mEq/L (23-29); Chloride 101 mEq/L (98-107); Glucose 242 mg/dL (70-105); Osmolality,Calculated 296 (280-300); Potassium 4.4 mEq/L (3.5-5.1); Sodium 139 mEq/L (136-145); eGFR For African Americans > 60 (> 60); eGFR For Non-African Americans > 60 (> 60)
[2020-11-08 20:04] LABS: Creatine Kinase 89 Units/L (30-223)
[2020-11-08] MEDS ORDERED: *HR* Metoprolol 5 MG/5 ML VIAL IVP PRN (20:10)
[2020-11-08] MEDS ORDERED: Acetaminophen 325 MG TABLET PO PRN (20:10)
[2020-11-08] MEDS ORDERED: Naloxone 0.4 MG/ML INJ IVP PRN (20:10)
[2020-11-08] MEDS ORDERED: Dextrose Gel 15 GM/37.5 ML TUBE PO PRN ×2 (20:47)
[2020-11-08] MEDS ORDERED: *HR* Dextrose 50 % in Water (Vial) 50 ML VIAL IVP PRN (20:47)
[2020-11-08] MEDS ORDERED: D5% in Water 1,000 ML IVC PRN (20:47)
[2020-11-08] MEDS ORDERED: Insulin LISPRO 300 UNITS/3 ML VIAL SUBQ SCH (21:00)
[2020-11-08] MEDS: *HR* OxyCODONE Immed Rel 5 MG TABLET PO PRN (21:16)
[2020-11-08] MEDS: 0.9 % Sodium Chloride 1,000 ML IVC SCH (21:16)
[2020-11-08 23:15] LABS: Hematocrit 30.3 % (35.3-44.9)
[2020-11-08 23:19] LABS: Hemoglobin 9.4 g/dL (11.5-15.4)
[2020-11-09] MEDS: Insulin LISPRO 300 UNITS/3 ML VIAL SUBQ SCH ×4 (00:42→18:31)
[2020-11-09 03:11] LABS: Basophils % 0.1 %; Eosinophils % 0.4 %; Hematocrit 26.8 % (35.3-44.9); Hemoglobin 8.7 g/dL (11.5-15.4); Immature Granulocytes % 0.4 % (0-4); Lymphocytes # 0.9 K/mcL (0.6-4.6); Mean Corpuscular HGB Conc 32.5 g/dL (31.6-35.5); Mean Corpuscular Hemoglobin 29.7 pg (28.0-33.3); Mean Corpuscular Volume 91.5 fL (83.0-100.0); Mean Platelet Volume 8.8 fL (9.4-12.4); Monocytes # 0.7 K/mcL (0.0-1.3); Monocytes % 7.6 %; Neutrophils # 7.6 K/mcL (1.6-8.9); Platelet Count 290 K/mcL (140-400); Red Blood Count 2.93 M/mcL (3.82-4.97); Red Cell Distribution Width 13.5 % (11.5-14.5); Segmented Neutrophils % 81.5 %; White Blood Count 9.4 K/mcL (4.3-11.1)
[2020-11-09 03:17] LABS: INR 1.4; Prothrombin Time 16.3 Seconds (9.4-12.1)
[2020-11-09 03:21] LABS: Activated Partial Thrombo Time 30.4 Seconds (26.0-36.0)
[2020-11-09 03:28] LABS: BUN/Creatinine Ratio 28 (6-26); Blood Urea Nitrogen 13 mg/dL (8-23); Calcium 8.5 mg/dL (8.6-10.3); Carbon Dioxide 26 mEq/L (23-29); Chloride 106 mEq/L (98-107); Glucose 178 mg/dL (70-105); Osmolality,Calculated 293 (280-300); Potassium 3.9 mEq/L (3.5-5.1); Sodium 139 mEq/L (136-145); eGFR For African Americans > 60 (> 60); eGFR For Non-African Americans > 60 (> 60)
[2020-11-09] MEDS: *HR* OxyCODONE Immed Rel 5 MG TABLET PO PRN ×2 (03:32→11:39)
[2020-11-09] MEDS ORDERED: Insulin LISPRO 300 UNITS/3 ML VIAL SUBQ SCH (07:30)
[2020-11-09 07:31] LABS: Estimated Average Glucose 117 mg/dl; Hemoglobin A1C 5.7 %
[2020-11-09] MEDS: Aspirin 81 MG TAB.CHEW PO SCH (08:19)
[2020-11-09] MEDS: *HR* HYDROcodone/Acet 5/325 mg TABLET PO PRN (08:19)
[2020-11-09 08:45] LABS: C-Reactive Protein < 5 mg/L (Less than 10); Lactate Dehydrogenase 161 Units/L (140-271)
[2020-11-09 09:03] LABS: Ferritin 21 ng/mL (10-120)
[2020-11-09] MEDS ORDERED: *HR* HYDROmorphone PF 0.5 MG/0.5 ML SYRINGE IVP PRN (12:59)
[2020-11-09] MEDS ORDERED: Clindamycin 900 MG/50 ML 900 MG/50 ML IV.SOLN IVPB ONE ×2 (13:57→14:13)
[2020-11-09] MEDS ORDERED: TOTAL JOINT MIXTURE (100ML) INTRAART ONE (14:00)
[2020-11-09] MEDS ORDERED: Ondansetron 4 MG/2 ML VIAL ONE (14:03)
[2020-11-09] MEDS ORDERED: Dexamethasone 4 MG/ML VIAL ONE (14:03)
[2020-11-09] MEDS ORDERED: Lidocaine -MPF 2% 2 ML VIAL ONE (14:03)
[2020-11-09] MEDS ORDERED: *HR* FentaNYL (PF) 100 MCG/2 ML VIAL ONE (14:04)
[2020-11-09] MEDS ORDERED: *HR* Midazolam HCl 2 MG/2 ML VIAL ONE (14:04)
[2020-11-09] MEDS ORDERED: *HR* Propofol 200 MG/20 ML VIAL IVP ONE (14:04)
[2020-11-09] MEDS ORDERED: Lidocaine HCL 4 ML Topical Solution (Laryng-O-Jet Kit Sterile Pak) TP ONE (14:29)
[2020-11-09] MEDS ORDERED: *HR* PHENYLEPHRINE 1,000 MCG/10 ML SYRINGE IVP ONE (14:50)
[2020-11-09] MEDS: 0.9 % Sodium Chloride 1,000 ML IVC SCH (18:28)
[2020-11-09] MEDS: carvediloL 6.25 MG TABLET PO SCH (18:31)
[2020-11-10] MEDS: Clindamycin 900 MG/50 ML 900 MG/50 ML IV.SOLN IVPB SCH ×2 (00:06→08:34)
[2020-11-10] MEDS: Insulin LISPRO 300 UNITS/3 ML VIAL SUBQ SCH ×4 (00:07→17:44)
[2020-11-10 00:54] LABS: Basophils % 0.1 %; Hematocrit 26.4 % (35.3-44.9); Hemoglobin 8.4 g/dL (11.5-15.4); Immature Granulocytes % 0.6 % (0-4); Lymphocytes # 0.7 K/mcL (0.6-4.6); Lymphocytes % 6.5 %; Mean Corpuscular HGB Conc 31.8 g/dL (31.6-35.5); Mean Corpuscular Hemoglobin 29.1 pg (28.0-33.3); Mean Corpuscular Volume 91.3 fL (83.0-100.0); Mean Platelet Volume 9.1 fL (9.4-12.4); Monocytes # 0.6 K/mcL (0.0-1.3); Monocytes % 5.4 %; Neutrophils # 9.5 K/mcL (1.6-8.9); Platelet Count 212 K/mcL (140-400); Red Blood Count 2.89 M/mcL (3.82-4.97); Red Cell Distribution Width 13.8 % (11.5-14.5); Segmented Neutrophils % 87.4 %; White Blood Count 10.8 K/mcL (4.3-11.1)
[2020-11-10 01:17] LABS: BUN/Creatinine Ratio 28 (6-26); Blood Urea Nitrogen 17 mg/dL (8-23); Carbon Dioxide 22 mEq/L (23-29); Chloride 106 mEq/L (98-107); Glucose 238 mg/dL (70-105); Magnesium 1.5 mg/dL (1.6-2.6); Osmolality,Calculated 291 (280-300); Phosphorous 3.5 mg/dL (2.7-4.5); Potassium 4.5 mEq/L (3.5-5.1); Sodium 136 mEq/L (136-145); eGFR For African Americans > 60 (> 60); eGFR For Non-African Americans > 60 (> 60)
[2020-11-10] MEDS: lisinopriL 10 MG TABLET PO SCH (08:26)
[2020-11-10] MEDS: carvediloL 6.25 MG TABLET PO SCH ×2 (08:33→17:18)
[2020-11-10] MEDS: Aspirin 81 MG TAB.CHEW PO SCH (08:34)
[2020-11-10] MEDS ORDERED: Isovue-370 500 ML BOTTLE IVP ONE (11:11)
[2020-11-10 11:31] LABS: INR 1.2; Prothrombin Time 13.9 Seconds (9.4-12.1)
[2020-11-10 11:34] LABS: Activated Partial Thrombo Time 24.1 Seconds (26.0-36.0); Heparin anti-factor XA LMWH 0.24 IU/mL (0.50-1.10)
[2020-11-10] MEDS: *HR* OxyCODONE Immed Rel 5 MG TABLET PO PRN (11:43)
[2020-11-10] MEDS: Multivit/Ca/Min/Fe/FA 1 TAB TABLET PO SCH (12:58)
[2020-11-10] MEDS ORDERED: Perflutren Lipid Microsphere 1.3 ML in 0.9 % Sodium Chloride 8.7 ML IVP PRN (15:16)
[2020-11-10] MEDS: Ondansetron 4 MG/2 ML VIAL IVP PRN (15:44)
[2020-11-10] MEDS ORDERED: Prochlorperazine 10 MG/2 ML VIAL IVP PRN (17:19)
[2020-11-10] MEDS: Apixaban 5 MG TABLET PO SCH (20:52)
[2020-11-11] MEDS: *HR* HYDROcodone/Acet 5/325 mg TABLET PO PRN ×2 (01:45→10:01)
[2020-11-11] MEDS: Insulin LISPRO 300 UNITS/3 ML VIAL SUBQ SCH ×4 (01:51→17:59)
[2020-11-11 02:33] LABS: Basophils % 0.1 %; Eosinophils % 0.4 %; Hematocrit 23.3 % (35.3-44.9); Hemoglobin 7.2 g/dL (11.5-15.4); Immature Granulocytes % 0.5 % (0-4); Lymphocytes # 1.3 K/mcL (0.6-4.6); Lymphocytes % 13.2 %; Mean Corpuscular HGB Conc 30.9 g/dL (31.6-35.5); Mean Corpuscular Hemoglobin 28.5 pg (28.0-33.3); Mean Corpuscular Volume 92.1 fL (83.0-100.0); Mean Platelet Volume 9.5 fL (9.4-12.4); Monocytes % 10.5 %; Neutrophils # 7.2 K/mcL (1.6-8.9); Platelet Count 195 K/mcL (140-400); Red Blood Count 2.53 M/mcL (3.82-4.97); Red Cell Distribution Width 13.7 % (11.5-14.5); Segmented Neutrophils % 75.3 %; White Blood Count 9.6 K/mcL (4.3-11.1)
[2020-11-11 02:55] LABS: BUN/Creatinine Ratio 25 (6-26); Blood Urea Nitrogen 14 mg/dL (8-23); Calcium 8.4 mg/dL (8.6-10.3); Carbon Dioxide 24 mEq/L (23-29); Chloride 106 mEq/L (98-107); Glucose 184 mg/dL (70-105); Magnesium 1.6 mg/dL (1.6-2.6); Osmolality,Calculated 291 (280-300); Phosphorous 2.6 mg/dL (2.7-4.5); Potassium 4.1 mEq/L (3.5-5.1); Sodium 138 mEq/L (136-145); eGFR For African Americans > 60 (> 60); eGFR For Non-African Americans > 60 (> 60)
[2020-11-11] MEDS: lisinopriL 10 MG TABLET PO SCH (09:30)
[2020-11-11] MEDS: carvediloL 6.25 MG TABLET PO SCH ×2 (09:30→17:36)
[2020-11-11] MEDS: Aspirin 81 MG TAB.CHEW PO SCH (09:30)
[2020-11-11] MEDS: Apixaban 5 MG TABLET PO SCH ×2 (09:30→20:19)
[2020-11-11 10:55] LABS: Hematocrit 23.6 % (35.3-44.9); Hemoglobin 7.5 g/dL (11.5-15.4)
[2020-11-11] MEDS: Multivit/Ca/Min/Fe/FA 1 TAB TABLET PO SCH (12:52)
[2020-11-11] MEDS: *HR* OxyCODONE Immed Rel 5 MG TABLET PO PRN (20:19)
[2020-11-12] MEDS: Insulin LISPRO 300 UNITS/3 ML VIAL SUBQ SCH ×4 (00:38→17:37)
[2020-11-12 05:06] LABS: Basophils % 0.2 %; Eosinophils # 0.1 K/mcL (0.0-0.6); Eosinophils % 1.5 %; Hemoglobin 7.4 g/dL (11.5-15.4); Immature Granulocytes % 0.5 % (0-4); Lymphocytes # 1.5 K/mcL (0.6-4.6); Lymphocytes % 16.2 %; Mean Corpuscular HGB Conc 32.2 g/dL (31.6-35.5); Mean Corpuscular Hemoglobin 29.4 pg (28.0-33.3); Mean Corpuscular Volume 91.3 fL (83.0-100.0); Mean Platelet Volume 9.3 fL (9.4-12.4); Monocytes # 0.9 K/mcL (0.0-1.3); Monocytes % 10.1 %; Neutrophils # 6.6 K/mcL (1.6-8.9); Platelet Count 215 K/mcL (140-400); Red Blood Count 2.52 M/mcL (3.82-4.97); Red Cell Distribution Width 13.6 % (11.5-14.5); Segmented Neutrophils % 71.5 %; White Blood Count 9.3 K/mcL (4.3-11.1)
[2020-11-12 05:33] LABS: BUN/Creatinine Ratio 23 (6-26); Blood Urea Nitrogen 12 mg/dL (8-23); Calcium 8.4 mg/dL (8.6-10.3); Carbon Dioxide 24 mEq/L (23-29); Chloride 104 mEq/L (98-107); Glucose 127 mg/dL (70-105); Magnesium 1.5 mg/dL (1.6-2.6); Osmolality,Calculated 285 (280-300); Phosphorous 2.4 mg/dL (2.7-4.5); Potassium 3.9 mEq/L (3.5-5.1); Sodium 137 mEq/L (136-145); eGFR For African Americans > 60 (> 60); eGFR For Non-African Americans > 60 (> 60)
[2020-11-12] MEDS: lisinopriL 10 MG TABLET PO SCH (08:08)
[2020-11-12] MEDS: Apixaban 5 MG TABLET PO SCH ×2 (08:08→20:57)
[2020-11-12] MEDS: *HR* OxyCODONE Immed Rel 5 MG TABLET PO PRN (08:08)
[2020-11-12] MEDS: carvediloL 6.25 MG TABLET PO SCH ×2 (08:09→16:02)
[2020-11-12] MEDS: Aspirin 81 MG TAB.CHEW PO SCH (08:09)
[2020-11-12 10:01] LABS: Amorphous Sediment,Urine Few per hpf (None-Few); Bilirubin,Urine Negative (Negative); Blood,Urine Large (Negative); Clarity,Urine Turbid (Clear); Color,Urine Dark-Yellow (Yellow); Glucose,Urine (UA) 30 mg/dL (Normal); Ketones,Urine Negative (Negative); Leukocyte Esterase,Urine Negative (Negative); Mucus,Urine Few per lpf (None-Few); Nitrite,Urine Negative (Negative); PH,Urine 7.5 pH Units (5.0-8.0); Protein,Urine 50 mg/dL (Neg-Trace); RBC,Urine TNTC per hpf (0-3); Specific Gravity,Urine 1.021 (1.010-1.025); WBC,Urine 0-3 per hpf (0-3)
[2020-11-12] MEDS: Multivit/Ca/Min/Fe/FA 1 TAB TABLET PO SCH (11:22)
[2020-11-12] MEDS ORDERED: 0.9 % Sodium Chloride 500 ML IVC ONE (15:54)
[2020-11-12] MEDS ORDERED: 0.9 % Sodium Chloride 500 ML ONE (15:56)
[2020-11-13] MEDS: Insulin LISPRO 300 UNITS/3 ML VIAL SUBQ SCH ×4 (00:17→17:07)
[2020-11-13 04:58] LABS: Basophils % 0.2 %; Eosinophils # 0.2 K/mcL (0.0-0.6); Eosinophils % 2.6 %; Hematocrit 21.2 % (35.3-44.9); Hemoglobin 6.8 g/dL (11.5-15.4); Immature Granulocytes % 0.5 % (0-4); Lymphocytes # 1.4 K/mcL (0.6-4.6); Lymphocytes % 15.4 %; Mean Corpuscular HGB Conc 32.1 g/dL (31.6-35.5); Mean Corpuscular Hemoglobin 28.7 pg (28.0-33.3); Mean Corpuscular Volume 89.5 fL (83.0-100.0); Mean Platelet Volume 9.2 fL (9.4-12.4); Monocytes # 0.7 K/mcL (0.0-1.3); Neutrophils # 6.5 K/mcL (1.6-8.9); Platelet Count 246 K/mcL (140-400); Red Blood Count 2.37 M/mcL (3.82-4.97); Red Cell Distribution Width 13.5 % (11.5-14.5); Segmented Neutrophils % 73.3 %; White Blood Count 8.9 K/mcL (4.3-11.1)
[2020-11-13 05:15] LABS: Magnesium 1.6 mg/dL (1.6-2.6); Phosphorous 2.5 mg/dL (2.7-4.5)
[2020-11-13 05:16] LABS: BUN/Creatinine Ratio 29 (6-26); Blood Urea Nitrogen 13 mg/dL (8-23); Carbon Dioxide 23 mEq/L (23-29); Chloride 103 mEq/L (98-107); Glucose 149 mg/dL (70-105); Osmolality,Calculated 279 (280-300); Potassium 3.7 mEq/L (3.5-5.1); Sodium 133 mEq/L (136-145); eGFR For African Americans > 60 (> 60); eGFR For Non-African Americans > 60 (> 60)
[2020-11-13] MEDS ORDERED: 0.9 % Sodium Chloride 250 ML ONE (09:20)
[2020-11-13] MEDS: Apixaban 5 MG TABLET PO SCH ×2 (09:46→20:59)
[2020-11-13] MEDS: carvediloL 6.25 MG TABLET PO SCH ×2 (09:47→17:05)
[2020-11-13] MEDS: Aspirin 81 MG TAB.CHEW PO SCH (09:47)
[2020-11-13] MEDS: lisinopriL 10 MG TABLET PO SCH (09:47)
[2020-11-13] MEDS: Multivit/Ca/Min/Fe/FA 1 TAB TABLET PO SCH (12:08)
[2020-11-13 13:56] LABS: Hematocrit 25.6 % (35.3-44.9); Hemoglobin 8.3 g/dL (11.5-15.4)
[2020-11-13] MEDS: *HR* HYDROcodone/Acet 5/325 mg TABLET PO PRN (17:04)
[2020-11-14] MEDS: *HR* HYDROcodone/Acet 5/325 mg TABLET PO PRN ×2 (00:37→10:24)
[2020-11-14] MEDS: Insulin LISPRO 300 UNITS/3 ML VIAL SUBQ SCH ×2 (00:37→06:27)
[2020-11-14 06:46] LABS: Hematocrit 26.3 % (35.3-44.9); Hemoglobin 8.6 g/dL (11.5-15.4)
[2020-11-14 09:47] VITALS: BP 152/65
[2020-11-14] MEDS: lisinopriL 10 MG TABLET PO SCH (10:21)
[2020-11-14] MEDS: carvediloL 6.25 MG TABLET PO SCH (10:21)
[2020-11-14] MEDS: Aspirin 81 MG TAB.CHEW PO SCH (10:21)
[2020-11-14] MEDS: Apixaban 5 MG TABLET PO SCH (10:21)
[2020-11-14] MEDS: Ondansetron 4 MG/2 ML VIAL IVP PRN (10:24)
== END 2020-11-14 12:41 | DRG 480 ==
LOC: 3NENU 18:42 → EMEROOARM 18:42 → SUATTDRO 20:05 → 3BNU 20:07 → 3NENU 11-09 18:08 → SUATTDRO 11-09 20:41
PROVIDERS: ADMIT Internal Medicine; ATTEND Family Medicine

== ENCOUNTER 2021-01-27 13:31 | Observation (INO) ==
[2021-01-27] MEDS ORDERED: Isovue-370 500 ML BOTTLE IVP ONE (14:09)
[2021-01-27] MEDS ORDERED: *HR* FentaNYL (PF) 100 MCG/2 ML VIAL IVP ONE ×2 (14:10→17:19)
[2021-01-27] MEDS ORDERED: Ondansetron 4 MG/2 ML VIAL IVP ONE (14:10)
[2021-01-27 14:55] LABS: Bilirubin,Urine Negative (Negative); Blood,Urine Moderate (Negative); Clarity,Urine Clear (Clear); Color,Urine Yellow (Yellow); Glucose,Urine (UA) 200 mg/dL (Normal); Ketones,Urine Negative (Negative); Leukocyte Esterase,Urine Large (Negative); Mucus,Urine Few per lpf (None-Few); Nitrite,Urine Negative (Negative); PH,Urine 6.5 pH Units (5.0-8.0); Protein,Urine 30 mg/dL (Neg-Trace); RBC,Urine TNTC per hpf (0-3); Specific Gravity,Urine 1.019 (1.010-1.025); Squamous Epithelial Cell,Urine Few per hpf (None-Few); Urobilinogen,Urine Normal (Normal); WBC,Urine 50-100 per hpf (0-3)
[2021-01-27 14:59] LABS: Basophils # 0.1 K/mcL (0.0-0.2); Basophils % 0.5 %; Eosinophils # 0.3 K/mcL (0.0-0.6); Eosinophils % 2.5 %; Hemoglobin 11.9 g/dL (11.5-15.4); Immature Granulocytes % 1.3 % (0-4); Lymphocytes # 1.2 K/mcL (0.6-4.6); Lymphocytes % 10.5 %; Mean Corpuscular HGB Conc 31.3 g/dL (31.6-35.5); Mean Corpuscular Hemoglobin 28.4 pg (28.0-33.3); Mean Corpuscular Volume 90.7 fL (83.0-100.0); Mean Platelet Volume 8.7 fL (9.4-12.4); Monocytes # 0.7 K/mcL (0.0-1.3); Platelet Count 307 K/mcL (140-400); Red Blood Count 4.19 M/mcL (3.82-4.97); Red Cell Distribution Width 14.6 % (11.5-14.5); Segmented Neutrophils % 79.2 %; White Blood Count 11.4 K/mcL (4.3-11.1)
[2021-01-27 15:19] LABS: Alanine Aminotransferase 11 Units/L (7-52); Albumin 3.8 g/dL (3.5-5.7); Albumin/Globulin Ratio 1.3 (1.1-2.2); Alkaline Phosphatase 69 Units/L (34-104); Aspartate Amino Transferase 13 Units/L (13-39); BUN/Creatinine Ratio 18 (6-26); Bilirubin,Direct 0.1 mg/dL (0.0-0.2); Bilirubin,Indirect 0.3 mg/dL (0.0-1.0); Bilirubin,Total 0.4 mg/dL (0.3-1.0); Blood Urea Nitrogen 9 mg/dL (8-23); Calcium 9.2 mg/dL (8.6-10.3); Carbon Dioxide 26 mEq/L (23-29); Chloride 104 mEq/L (98-107); Glucose 199 mg/dL (70-105); Osmolality,Calculated 292 (280-300); Potassium 3.9 mEq/L (3.5-5.1); Sodium 139 mEq/L (136-145); Total Protein 6.8 g/dL (6.4-8.9); eGFR For African Americans > 60 (> 60); eGFR For Non-African Americans > 60 (> 60)
[2021-01-27] MEDS ORDERED: cefTRIAXone 1,000 MG in Water for inj. (sterile) 10 ML IVP ONE (16:35)
[2021-01-27] MEDS ORDERED: Acetaminophen 325 MG TABLET PO PRN (19:04)
[2021-01-27] MEDS ORDERED: Naloxone 0.4 MG/ML INJ IVP PRN (19:04)
[2021-01-27] MEDS ORDERED: Ondansetron 4 MG/2 ML VIAL IVP PRN (19:04)
[2021-01-27] MEDS ORDERED: 0.9 % Sodium Chloride 1,000 ML IVC SCH (19:15)
[2021-01-27] MEDS ORDERED: Melatonin 3 MG TABLET PO PRN (21:00)
[2021-01-27] MEDS ORDERED: *HR* Heparin 5,000 UNIT/ML VIAL SQ ONE (22:42)
[2021-01-27 23:39] LABS: Adenovirus Not Detected (Not Detect); Bordetella Pertussis Not Detected (Not Detect); Chlamydophila pneumoniae Not Detected (Not Detect); Coronavirus 229E Not Detected (Not Detect); Coronavirus HKU1 Not Detected (Not Detect); Coronavirus NL63 Not Detected (Not Detect); Coronavirus OC43 Not Detected (Not Detect); Human Metapneumovirus Not Detected (Not Detect); Human Rhinovirus/Enterovirus Not Detected (Not Detect); Influenza A Subtype 2009 H1 Not Detected (Not Detect); Influenza B Not Detected (Not Detect); Mycoplasma pneumoniae Not Detected (Not Detect); Parainfluenza Virus 1 Not Detected (Not Detect); Parainfluenza Virus 2 Not Detected (Not Detect); Parainfluenza Virus 3 Not Detected (Not Detect); Parainfluenza Virus 4 Not Detected (Not Detect); Respiratory Syncytial Virus Not Detected (Not Detect); SARS-CoV-2 Not Detected (Not Detect)
[2021-01-28] MEDS ORDERED: Promethazine 6.25 MG in Water for inj. (sterile) 20 ML IVPB PRN (00:13)
[2021-01-28] MEDS ORDERED: Ondansetron 4 MG/2 ML VIAL IVP PRN (00:13)
[2021-01-28] MEDS ORDERED: *HR* OxyCODONE Immed Rel 5 MG TABLET PO PRN (00:13)
[2021-01-28] MEDS ORDERED: *HR* HYDROmorphone (PF) 1 MG/ML SYRINGE IVP PRN (00:32)
[2021-01-28 01:08] LABS: Hematocrit 33.1 % (35.3-44.9); Hemoglobin 10.7 g/dL (11.5-15.4); Mean Corpuscular HGB Conc 32.3 g/dL (31.6-35.5); Mean Corpuscular Hemoglobin 28.5 pg (28.0-33.3); Mean Corpuscular Volume 88.3 fL (83.0-100.0); Mean Platelet Volume 8.8 fL (9.4-12.4); Platelet Count 302 K/mcL (140-400); Red Blood Count 3.75 M/mcL (3.82-4.97); Red Cell Distribution Width 14.6 % (11.5-14.5); White Blood Count 9.8 K/mcL (4.3-11.1)
[2021-01-28 01:14] LABS: INR 1.2; Prothrombin Time 13.9 Seconds (9.4-12.1)
[2021-01-28 01:17] LABS: Activated Partial Thrombo Time 29.4 Seconds (26.0-36.0)
[2021-01-28] MEDS ORDERED: carvediloL 6.25 MG TABLET PO ONE (05:05)
[2021-01-28] MEDS ORDERED: *HR* Propofol 200 MG/20 ML VIAL IVP ONE (05:21)
[2021-01-28] MEDS ORDERED: *HR* FentaNYL (PF) 100 MCG/2 ML VIAL ONE ×2 (05:21→06:33)
[2021-01-28] MEDS ORDERED: Bupivacaine-MPF 0.25% 10 ML VIAL ONE (05:28)
[2021-01-28] MEDS ORDERED: Bupivacaine 0.5%-Epi 1:200,000 50 ML VIAL ONE (05:29)
[2021-01-28] MEDS ORDERED: Silver Nitrate Applicator 1 STICK..EA. TP ONE (05:29)
[2021-01-28] MEDS: cefTRIAXone 1,000 MG in 0.9 % Sodium Chloride Mini Bag 100 ML IVPB SCH (09:35)
[2021-01-28] MEDS: lisinopriL 10 MG TABLET PO SCH (12:25)
[2021-01-28] MEDS: carvediloL 6.25 MG TABLET PO SCH (17:18)
[2021-01-28] MEDS ORDERED: *HR* Dextrose 50 % in Water (Vial) 50 ML VIAL IVP PRN (17:42)
[2021-01-28] MEDS ORDERED: D5% in Water 1,000 ML IVC PRN (17:42)
[2021-01-28] MEDS ORDERED: Dextrose Gel 15 GM/37.5 ML TUBE PO PRN ×2 (17:42)
[2021-01-28] MEDS ORDERED: Melatonin 3 MG TABLET PO PRN (17:43)
[2021-01-28] MEDS: Insulin LISPRO 300 UNITS/3 ML VIAL SUBQ SCH (19:26)
[2021-01-28] MEDS: Apixaban 5 MG TABLET PO SCH (20:32)
[2021-01-28] MEDS ORDERED: Insulin LISPRO 300 UNITS/3 ML VIAL SUBQ SCH (21:00)
[2021-01-29 02:08] LABS: Basophils % 0.2 %; Eosinophils # 0.1 K/mcL (0.0-0.6); Eosinophils % 1.1 %; Hematocrit 31.2 % (35.3-44.9); Hemoglobin 9.8 g/dL (11.5-15.4); Immature Granulocytes % 0.4 % (0-4); Lymphocytes # 1.6 K/mcL (0.6-4.6); Lymphocytes % 14.6 %; Mean Corpuscular HGB Conc 31.4 g/dL (31.6-35.5); Mean Corpuscular Hemoglobin 28.8 pg (28.0-33.3); Mean Corpuscular Volume 91.8 fL (83.0-100.0); Mean Platelet Volume 8.7 fL (9.4-12.4); Monocytes # 0.9 K/mcL (0.0-1.3); Monocytes % 8.5 %; Platelet Count 304 K/mcL (140-400); Red Cell Distribution Width 14.8 % (11.5-14.5); Segmented Neutrophils % 75.2 %; White Blood Count 10.7 K/mcL (4.3-11.1)
[2021-01-29 02:19] LABS: INR 1.6; Prothrombin Time 18.5 Seconds (9.4-12.1)
[2021-01-29 02:26] LABS: BUN/Creatinine Ratio 22 (6-26); Blood Urea Nitrogen 10 mg/dL (8-23); Calcium 8.3 mg/dL (8.6-10.3); Carbon Dioxide 27 mEq/L (23-29); Chloride 105 mEq/L (98-107); Glucose 214 mg/dL (70-105); Osmolality,Calculated 291 (280-300); Potassium 3.9 mEq/L (3.5-5.1); Sodium 138 mEq/L (136-145); eGFR For African Americans > 60 (> 60); eGFR For Non-African Americans > 60 (> 60)
[2021-01-29 07:28] VITALS: BP 148/64
[2021-01-29] MEDS: cefTRIAXone 1,000 MG in 0.9 % Sodium Chloride Mini Bag 100 ML IVPB SCH (07:59)
[2021-01-29] MEDS: carvediloL 6.25 MG TABLET PO SCH (08:00)
[2021-01-29] MEDS: Apixaban 5 MG TABLET PO SCH (08:00)
[2021-01-29] MEDS: lisinopriL 10 MG TABLET PO SCH (08:00)
[2021-01-29] MEDS: Insulin LISPRO 300 UNITS/3 ML VIAL SUBQ SCH (08:40)
== END 2021-01-29 16:24 | disposition home or self-care (01) ==
LOC: 3ANU 13:31 → EMEROOARM 13:31 → SUATTDRO 19:39 → 3ANU 21:11
PROVIDERS: ADMIT Internal Medicine; ATTEND Internal Medicine

== ENCOUNTER 2021-03-27 07:44 | Inpatient (IN) ==
[2021-03-27] MEDS ORDERED: Ondansetron 4 MG/2 ML VIAL IVP ONE (08:04)
[2021-03-27] MEDS ORDERED: 0.9 % Sodium Chloride 1,000 ML IVC ONE ×2 (08:04→09:23)
[2021-03-27] MEDS ORDERED: *HR* HYDROmorphone (PF) 1 MG/ML SYRINGE IVP ONE ×2 (08:05→10:29)
[2021-03-27 08:34] LABS: Basophils % 0.5 %; Eosinophils % 0.2 %; Hematocrit 37.5 % (35.3-44.9); Immature Granulocytes % 0.5 % (0-4); Lymphocytes # 0.3 K/mcL (0.6-4.6); Lymphocytes % 7.7 %; Mean Corpuscular Hemoglobin 28.2 pg (28.0-33.3); Mean Corpuscular Volume 88.2 fL (83.0-100.0); Mean Platelet Volume 8.9 fL (9.4-12.4); Monocytes # 0.4 K/mcL (0.0-1.3); Monocytes % 9.2 %; Neutrophils # 3.3 K/mcL (1.6-8.9); Platelet Count 163 K/mcL (140-400); Red Blood Count 4.25 M/mcL (3.82-4.97); Red Cell Distribution Width 13.2 % (11.5-14.5); Segmented Neutrophils % 81.9 %
[2021-03-27 08:40] LABS: Bilirubin,Urine Negative (Negative); Blood,Urine Small (Negative); Clarity,Urine Clear (Clear); Color,Urine Yellow (Yellow); Glucose,Urine (UA) >=1000 mg/dL (Normal); Ketones,Urine 80 mg/dL (Negative); Leukocyte Esterase,Urine Negative (Negative); Mucus,Urine Few per lpf (None-Few); Nitrite,Urine Negative (Negative); PH,Urine 5.5 pH Units (5.0-8.0); Protein,Urine 50 mg/dL (Neg-Trace); Specific Gravity,Urine 1.026 (1.010-1.025); Urobilinogen,Urine Normal (Normal)
[2021-03-27 09:15] LABS: Platelet Estimate Normal (Normal); Toxic Granulation Present (Not Present)
[2021-03-27 09:26] LABS: Alanine Aminotransferase 18 Units/L (7-52); Albumin 3.8 g/dL (3.5-5.7); Albumin/Globulin Ratio 1.5 (1.1-2.2); Alkaline Phosphatase 45 Units/L (34-104); Aspartate Amino Transferase 32 Units/L (13-39); BUN/Creatinine Ratio 24 (6-26); Bilirubin,Total 0.8 mg/dL (0.3-1.0); Blood Urea Nitrogen 19 mg/dL (8-23); Calcium 8.7 mg/dL (8.6-10.3); Carbon Dioxide 20 mEq/L (23-29); Chloride 100 mEq/L (98-107); Globulin 2.6 g/dL (2.4-3.5); Glucose 282 mg/dL (70-105); Lipase 4 Units/L (11-82); Osmolality,Calculated 290 (280-300); Potassium 4.2 mEq/L (3.5-5.1); Sodium 134 mEq/L (136-145); Total Protein 6.4 g/dL (6.4-8.9); Troponin I 2.94 ng/mL (< 0.04); eGFR For African Americans > 60 (> 60); eGFR For Non-African Americans > 60 (> 60)
[2021-03-27] MEDS ORDERED: *HR* Heparin 5,000 UNIT/ML VIAL IVP ONE (09:38)
[2021-03-27] MEDS ORDERED: *HR* Heparin 5,000 UNIT/ML VIAL IVP PRN ×2 (09:38)
[2021-03-27] MEDS ORDERED: Aspirin 325 MG TABLET PO ONE (09:53)
[2021-03-27 10:09] LABS: Heparin anti-factor XA UFH 0.08 IU/mL (0.30-0.70); INR 1.2; Prothrombin Time 13.4 Seconds (9.4-12.1)
[2021-03-27 10:11] LABS: Activated Partial Thrombo Time 22.3 Seconds (26.0-36.0)
[2021-03-27] MEDS: Heparin 25,000UNIT/250ML 1/2NS 25,000 UNIT/250 ML IV.SOLN IVC SCH (10:19)
[2021-03-27] MEDS ORDERED: Prochlorperazine 10 MG/2 ML VIAL IVP PRN (10:29)
[2021-03-27] MEDS ORDERED: *HR* Dextrose 50 % in Water (Vial) 50 ML VIAL IVP PRN (10:52)
[2021-03-27] MEDS ORDERED: Dextrose Gel 15 GM/37.5 ML TUBE PO PRN ×2 (10:52)
[2021-03-27] MEDS ORDERED: D5% in Water 1,000 ML IVC PRN (10:52)
[2021-03-27] MEDS ORDERED: Naloxone 0.4 MG/ML INJ IVP PRN (10:52)
[2021-03-27] MEDS ORDERED: Mag Hydrox/Al Hydrox/Simeth 30 ML UDC PO PRN (10:52)
[2021-03-27] MEDS ORDERED: Isovue-370 500 ML BOTTLE IVP ONE (13:32)
[2021-03-27] MEDS: Insulin LISPRO 300 UNITS/3 ML VIAL SUBQ SCH ×3 (13:40→20:38)
[2021-03-27] MEDS: Ringers Solution, Lactated 1,000 ML IVC SCH (16:33)
[2021-03-27] MEDS: Acetaminophen 325 MG TABLET PO PRN (20:41)
[2021-03-27] MEDS: Ondansetron 4 MG/2 ML VIAL IVP PRN (20:43)
[2021-03-28 00:47] LABS: Basophils % 0.4 %; Eosinophils % 1.6 %; Hematocrit 33.2 % (35.3-44.9); Hemoglobin 10.8 g/dL (11.5-15.4); Immature Granulocytes % 0.8 % (0-4); Lymphocytes # 0.3 K/mcL (0.6-4.6); Lymphocytes % 10.6 %; Mean Corpuscular HGB Conc 32.5 g/dL (31.6-35.5); Mean Corpuscular Hemoglobin 28.3 pg (28.0-33.3); Mean Corpuscular Volume 86.9 fL (83.0-100.0); Mean Platelet Volume 9.2 fL (9.4-12.4); Monocytes # 0.3 K/mcL (0.0-1.3); Monocytes % 10.2 %; Platelet Count 173 K/mcL (140-400); Red Blood Count 3.82 M/mcL (3.82-4.97); Red Cell Distribution Width 13.2 % (11.5-14.5); Segmented Neutrophils % 76.4 %; White Blood Count 2.6 K/mcL (4.3-11.1)
[2021-03-28 01:08] LABS: BUN/Creatinine Ratio 25 (6-26); Blood Urea Nitrogen 15 mg/dL (8-23); Calcium 7.6 mg/dL (8.6-10.3); Carbon Dioxide 16 mEq/L (23-29); Chloride 106 mEq/L (98-107); Glucose 180 mg/dL (70-105); Magnesium 1.3 mg/dL (1.6-2.6); Osmolality,Calculated 287 (280-300); Potassium 3.7 mEq/L (3.5-5.1); Sodium 136 mEq/L (136-145); eGFR For African Americans > 60 (> 60); eGFR For Non-African Americans > 60 (> 60)
[2021-03-28 01:28] LABS: Platelet Estimate Normal (Normal)
[2021-03-28] MEDS: Ringers Solution, Lactated 1,000 ML IVC SCH (06:14)
[2021-03-28] MEDS ORDERED: Perflutren Lipid Microsphere 1.3 ML in 0.9 % Sodium Chloride 8.7 ML IVP PRN (07:37)
[2021-03-28] MEDS: Insulin LISPRO 300 UNITS/3 ML VIAL SUBQ SCH ×4 (07:43→20:17)
[2021-03-28] MEDS: Aspirin Enteric Coated 81 MG Tablet PO SCH (10:26)
[2021-03-28] MEDS: carvediloL 6.25 MG TABLET PO SCH ×2 (10:26→17:30)
[2021-03-28] MEDS: Ondansetron 4 MG/2 ML VIAL IVP PRN ×2 (10:35→23:40)
[2021-03-28] MEDS: Heparin 25,000UNIT/250ML 1/2NS 25,000 UNIT/250 ML IV.SOLN IVC SCH (14:51)
[2021-03-28] MEDS ORDERED: *HR* OxyCODONE Immed Rel 5 MG TABLET PO PRN (16:42)
[2021-03-28] MEDS: Morphine Sulfate ER (12 HR) 15 MG TABLET.ER PO SCH (17:31)
[2021-03-28] MEDS: Famotidine 20 MG TABLET PO SCH (19:54)
[2021-03-29 02:22] LABS: Hematocrit 27.8 % (35.3-44.9); Hemoglobin 9.2 g/dL (11.5-15.4); Lymphocytes # 0.2 K/mcL (0.6-4.6); Mean Corpuscular HGB Conc 33.1 g/dL (31.6-35.5); Mean Corpuscular Hemoglobin 28.5 pg (28.0-33.3); Mean Corpuscular Volume 86.1 fL (83.0-100.0); Mean Platelet Volume 8.7 fL (9.4-12.4); Platelet Count 121 K/mcL (140-400); Red Blood Count 3.23 M/mcL (3.82-4.97); Red Cell Distribution Width 13.1 % (11.5-14.5); White Blood Count 1.5 K/mcL (4.3-11.1)
[2021-03-29 02:44] LABS: Anisocytosis 1+ (Not Present); Neutrophils # 1.2 K/mcL (1.6-8.9); Platelet Estimate Normal (Normal); Poikilocytosis 1+ (Not Present); Toxic Granulation Present (Not Present)
[2021-03-29 02:54] LABS: BUN/Creatinine Ratio 24 (6-26); Blood Urea Nitrogen 12 mg/dL (8-23); Carbon Dioxide 19 mEq/L (23-29); Chloride 105 mEq/L (98-107); Glucose 185 mg/dL (70-105); Potassium 3.3 mEq/L (3.5-5.1); Sodium 132 mEq/L (136-145); eGFR For African Americans > 60 (> 60); eGFR For Non-African Americans > 60 (> 60)
[2021-03-29 02:55] LABS: Magnesium 1.7 mg/dL (1.6-2.6); Osmolality,Calculated 279 (280-300)
[2021-03-29] MEDS: Morphine Sulfate ER (12 HR) 15 MG TABLET.ER PO SCH ×2 (05:48→16:32)
[2021-03-29] MEDS: dexAMETHasone 4 MG TABLET PO SCH (07:34)
[2021-03-29] MEDS: Insulin LISPRO 300 UNITS/3 ML VIAL SUBQ SCH ×4 (07:34→20:52)
[2021-03-29] MEDS: Aspirin Enteric Coated 81 MG Tablet PO SCH (07:34)
[2021-03-29] MEDS: carvediloL 6.25 MG TABLET PO SCH ×2 (07:34→16:32)
[2021-03-29] MEDS: Heparin 25,000UNIT/250ML 1/2NS 25,000 UNIT/250 ML IV.SOLN IVC SCH (07:41)
[2021-03-29] MEDS ORDERED: lisinopriL 10 MG TABLET PO SCH (09:00)
[2021-03-29] MEDS: lisinopriL 5 MG TABLET PO SCH (09:52)
[2021-03-29] MEDS: Ondansetron 4 MG/2 ML VIAL IVP PRN ×2 (09:59→20:18)
[2021-03-29] MEDS: Apixaban 5 MG TABLET PO SCH ×2 (11:53→20:52)
[2021-03-29 12:05] LABS: Hematocrit 28.2 % (35.3-44.9); Hemoglobin 9.4 g/dL (11.5-15.4)
[2021-03-29] MEDS: Cyanocobalamin (B-12) 1,000 MCG TABLET PO SCH (16:32)
[2021-03-29] MEDS ORDERED: Isovue-370 500 ML BOTTLE IVP ONE (20:35)
[2021-03-29] MEDS: Famotidine 20 MG TABLET PO SCH (20:52)
[2021-03-30] MEDS: Morphine Sulfate ER (12 HR) 15 MG TABLET.ER PO SCH ×2 (05:05→15:52)
[2021-03-30 07:09] LABS: Basophils % 0.4 %; Eosinophils # 0.1 K/mcL (0.0-0.6); Eosinophils % 2.3 %; Hematocrit 29.5 % (35.3-44.9); Hemoglobin 9.9 g/dL (11.5-15.4); Immature Granulocytes % 0.4 % (0-4); Lymphocytes # 0.4 K/mcL (0.6-4.6); Lymphocytes % 14.9 %; Mean Corpuscular HGB Conc 33.6 g/dL (31.6-35.5); Mean Corpuscular Hemoglobin 29.1 pg (28.0-33.3); Mean Corpuscular Volume 86.8 fL (83.0-100.0); Mean Platelet Volume 9.5 fL (9.4-12.4); Monocytes # 0.3 K/mcL (0.0-1.3); Monocytes % 9.6 %; Neutrophils # 1.9 K/mcL (1.6-8.9); Platelet Count 125 K/mcL (140-400); Red Cell Distribution Width 13.1 % (11.5-14.5); Segmented Neutrophils % 72.4 %
[2021-03-30 07:16] LABS: White Blood Count 2.6 K/mcL (4.3-11.1)
[2021-03-30 07:24] LABS: BUN/Creatinine Ratio 26 (6-26); Blood Urea Nitrogen 16 mg/dL (8-23); Calcium 7.6 mg/dL (8.6-10.3); Carbon Dioxide 26 mEq/L (23-29); Chloride 104 mEq/L (98-107); Glucose 215 mg/dL (70-105); Magnesium 1.5 mg/dL (1.6-2.6); Osmolality,Calculated 286 (280-300); Potassium 3.7 mEq/L (3.5-5.1); Sodium 134 mEq/L (136-145); eGFR For African Americans > 60 (> 60); eGFR For Non-African Americans > 60 (> 60)
[2021-03-30 07:27] LABS: Poikilocytosis 1+ (Not Present)
[2021-03-30 07:28] LABS: Platelet Estimate Normal (Normal)
[2021-03-30] MEDS: lisinopriL 5 MG TABLET PO SCH (08:18)
[2021-03-30] MEDS: carvediloL 6.25 MG TABLET PO SCH ×2 (08:18→16:02)
[2021-03-30] MEDS: dexAMETHasone 4 MG TABLET PO SCH (08:18)
[2021-03-30] MEDS: Insulin LISPRO 300 UNITS/3 ML VIAL SUBQ SCH ×4 (08:18→20:54)
[2021-03-30] MEDS: Apixaban 5 MG TABLET PO SCH ×2 (08:18→20:51)
[2021-03-30] MEDS: Famotidine 20 MG TABLET PO SCH (20:51)
[2021-03-31] MEDS: Morphine Sulfate ER (12 HR) 15 MG TABLET.ER PO SCH ×2 (05:44→17:13)
[2021-03-31 06:15] LABS: Basophils % 0.4 %; Eosinophils # 0.1 K/mcL (0.0-0.6); Eosinophils % 3.3 %; Hemoglobin 9.9 g/dL (11.5-15.4); Immature Granulocytes % 0.7 % (0-4); Lymphocytes # 0.5 K/mcL (0.6-4.6); Lymphocytes % 16.8 %; Mean Corpuscular HGB Conc 34.1 g/dL (31.6-35.5); Mean Corpuscular Hemoglobin 29.6 pg (28.0-33.3); Mean Corpuscular Volume 86.6 fL (83.0-100.0); Mean Platelet Volume 9.4 fL (9.4-12.4); Monocytes # 0.2 K/mcL (0.0-1.3); Monocytes % 7.7 %; Neutrophils # 1.9 K/mcL (1.6-8.9); Platelet Count 128 K/mcL (140-400); Red Blood Count 3.35 M/mcL (3.82-4.97); Red Cell Distribution Width 13.2 % (11.5-14.5); Segmented Neutrophils % 71.1 %; White Blood Count 2.7 K/mcL (4.3-11.1)
[2021-03-31 06:30] LABS: BUN/Creatinine Ratio 25 (6-26); Blood Urea Nitrogen 13 mg/dL (8-23); Calcium 7.4 mg/dL (8.6-10.3); Carbon Dioxide 23 mEq/L (23-29); Chloride 106 mEq/L (98-107); Glucose 196 mg/dL (70-105); Magnesium 1.6 mg/dL (1.6-2.6); Osmolality,Calculated 284 (280-300); Potassium 3.3 mEq/L (3.5-5.1); Sodium 134 mEq/L (136-145); eGFR For African Americans > 60 (> 60); eGFR For Non-African Americans > 60 (> 60)
[2021-03-31 06:55] LABS: Anisocytosis 1+ (Not Present); Ovalocytes 1+ (Not Present); Platelet Estimate Normal (Normal)
[2021-03-31] MEDS: Apixaban 5 MG TABLET PO SCH ×2 (07:36→21:05)
[2021-03-31] MEDS: carvediloL 6.25 MG TABLET PO SCH ×2 (07:36→17:13)
[2021-03-31] MEDS: lisinopriL 5 MG TABLET PO SCH (07:36)
[2021-03-31] MEDS: Insulin LISPRO 300 UNITS/3 ML VIAL SUBQ SCH ×4 (07:37→21:05)
[2021-03-31] MEDS: dexAMETHasone 4 MG TABLET PO SCH (07:37)
[2021-03-31] MEDS: Cyanocobalamin (B-12) 1,000 MCG TABLET PO SCH (17:13)
[2021-03-31] MEDS: Famotidine 20 MG TABLET PO SCH (21:04)
[2021-04-01 02:31] LABS: Eosinophils # 0.1 K/mcL (0.0-0.6); Eosinophils % 3.8 %; Hematocrit 27.7 % (35.3-44.9); Hemoglobin 9.1 g/dL (11.5-15.4); Immature Granulocytes % 0.4 % (0-4); Lymphocytes # 0.4 K/mcL (0.6-4.6); Lymphocytes % 16.3 %; Mean Corpuscular HGB Conc 32.9 g/dL (31.6-35.5); Mean Corpuscular Hemoglobin 28.3 pg (28.0-33.3); Mean Platelet Volume 9.3 fL (9.4-12.4); Monocytes # 0.2 K/mcL (0.0-1.3); Monocytes % 9.2 %; Neutrophils # 1.7 K/mcL (1.6-8.9); Platelet Count 133 K/mcL (140-400); Red Blood Count 3.22 M/mcL (3.82-4.97); Red Cell Distribution Width 13.2 % (11.5-14.5); Segmented Neutrophils % 70.3 %; White Blood Count 2.4 K/mcL (4.3-11.1)
[2021-04-01 03:17] LABS: BUN/Creatinine Ratio 25 (6-26); Blood Urea Nitrogen 14 mg/dL (8-23); Calcium 7.5 mg/dL (8.6-10.3); Carbon Dioxide 20 mEq/L (23-29); Chloride 106 mEq/L (98-107); Glucose 234 mg/dL (70-105); Magnesium 1.5 mg/dL (1.6-2.6); Osmolality,Calculated 286 (280-300); Potassium 3.8 mEq/L (3.5-5.1); Sodium 134 mEq/L (136-145); eGFR For African Americans > 60 (> 60); eGFR For Non-African Americans > 60 (> 60)
[2021-04-01 03:18] LABS: Platelet Estimate Normal (Normal)
[2021-04-01] MEDS: Morphine Sulfate ER (12 HR) 15 MG TABLET.ER PO SCH ×2 (05:00→17:04)
[2021-04-01] MEDS: Apixaban 5 MG TABLET PO SCH ×2 (08:24→19:41)
[2021-04-01] MEDS: carvediloL 6.25 MG TABLET PO SCH ×2 (08:25→17:05)
[2021-04-01] MEDS: lisinopriL 5 MG TABLET PO SCH (08:25)
[2021-04-01] MEDS: dexAMETHasone 4 MG TABLET PO SCH (08:25)
[2021-04-01] MEDS: Insulin LISPRO 300 UNITS/3 ML VIAL SUBQ SCH ×3 (08:26→17:05)
[2021-04-01] MEDS: Famotidine 20 MG TABLET PO SCH (19:41)
[2021-04-01] MEDS: Mirtazapine 15 MG TABLET PO SCH (19:41)
[2021-04-01] MEDS: Insulin DETEMIR 100 UNIT/ML X5UNITS SUBQ SCH (20:12)
[2021-04-02 05:21] LABS: Eosinophils # 0.1 K/mcL (0.0-0.6); Eosinophils % 3.2 %; Hematocrit 30.8 % (35.3-44.9); Hemoglobin 9.8 g/dL (11.5-15.4); Immature Granulocytes % 0.5 % (0-4); Lymphocytes % 15.7 %; Mean Corpuscular HGB Conc 31.8 g/dL (31.6-35.5); Mean Platelet Volume 9.4 fL (9.4-12.4); Monocytes # 0.2 K/mcL (0.0-1.3); Monocytes % 8.8 %; Neutrophils # 1.6 K/mcL (1.6-8.9); Platelet Count 175 K/mcL (140-400); Red Cell Distribution Width 13.6 % (11.5-14.5); Segmented Neutrophils % 71.8 %; White Blood Count 2.2 K/mcL (4.3-11.1)
[2021-04-02 05:29] LABS: Lymphocytes # 0.4 K/mcL (0.6-4.6)
[2021-04-02] MEDS: Morphine Sulfate ER (12 HR) 15 MG TABLET.ER PO SCH ×2 (05:29→16:23)
[2021-04-02 05:39] LABS: % Iron Saturation 19 % (15-50); Iron 35 mcg/dL (50-170); Transferrin 129 mg/dL (203-362)
[2021-04-02 05:41] LABS: BUN/Creatinine Ratio 23 (6-26); Blood Urea Nitrogen 14 mg/dL (8-23); Calcium 7.7 mg/dL (8.6-10.3); Carbon Dioxide 25 mEq/L (23-29); Chloride 103 mEq/L (98-107); Glucose 109 mg/dL (70-105); Magnesium 1.5 mg/dL (1.6-2.6); Osmolality,Calculated 277 (280-300); Potassium 3.7 mEq/L (3.5-5.1); Sodium 133 mEq/L (136-145); eGFR For African Americans > 60 (> 60); eGFR For Non-African Americans > 60 (> 60)
[2021-04-02 05:58] LABS: Ferritin 98 ng/mL (10-120)
[2021-04-02 06:02] LABS: Folate 12.2 ng/mL (3.0-16.0); Platelet Estimate Normal (Normal)
[2021-04-02] MEDS: Insulin LISPRO 300 UNITS/3 ML VIAL SUBQ SCH ×3 (07:30→16:23)
[2021-04-02] MEDS: lisinopriL 5 MG TABLET PO SCH (08:15)
[2021-04-02] MEDS: dexAMETHasone 4 MG TABLET PO SCH (08:15)
[2021-04-02] MEDS: Apixaban 5 MG TABLET PO SCH ×2 (08:15→20:42)
[2021-04-02] MEDS: carvediloL 6.25 MG TABLET PO SCH ×2 (08:16→16:22)
[2021-04-02 12:12] LABS: Estimated Average Glucose 160 mg/dl; Hemoglobin A1C 7.2 %
[2021-04-02] MEDS: Cyanocobalamin (B-12) 1,000 MCG TABLET PO SCH (16:22)
[2021-04-02] MEDS: Famotidine 20 MG TABLET PO SCH (20:42)
[2021-04-02] MEDS: Mirtazapine 15 MG TABLET PO SCH (20:43)
[2021-04-02] MEDS: Insulin DETEMIR 100 UNIT/ML X5UNITS SUBQ SCH (20:43)
[2021-04-03] MEDS: Morphine Sulfate ER (12 HR) 15 MG TABLET.ER PO SCH ×2 (05:10→16:43)
[2021-04-03] MEDS: Insulin LISPRO 300 UNITS/3 ML VIAL SUBQ SCH ×3 (07:34→16:43)
[2021-04-03] MEDS: dexAMETHasone 4 MG TABLET PO SCH (07:48)
[2021-04-03] MEDS: Apixaban 5 MG TABLET PO SCH ×2 (07:48→19:46)
[2021-04-03] MEDS: carvediloL 6.25 MG TABLET PO SCH ×2 (08:22→16:43)
[2021-04-03 11:54] LABS: Platelet Count 190 K/mcL (140-400)
[2021-04-03 11:55] LABS: Hematocrit 29.1 % (35.3-44.9); Hemoglobin 9.7 g/dL (11.5-15.4); Lymphocytes # 0.1 K/mcL (0.6-4.6); Mean Corpuscular HGB Conc 33.3 g/dL (31.6-35.5); Mean Corpuscular Hemoglobin 29.1 pg (28.0-33.3); Mean Corpuscular Volume 87.4 fL (83.0-100.0); Red Blood Count 3.33 M/mcL (3.82-4.97); Red Cell Distribution Width 14.1 % (11.5-14.5); White Blood Count 1.3 K/mcL (4.3-11.1)
[2021-04-03 12:11] LABS: BUN/Creatinine Ratio 33 (6-26); Blood Urea Nitrogen 21 mg/dL (8-23); Calcium 7.8 mg/dL (8.6-10.3); Carbon Dioxide 22 mEq/L (23-29); Chloride 101 mEq/L (98-107); Glucose 219 mg/dL (70-105); Magnesium 1.4 mg/dL (1.6-2.6); Osmolality,Calculated 282 (280-300); Sodium 131 mEq/L (136-145); eGFR For African Americans > 60 (> 60); eGFR For Non-African Americans > 60 (> 60)
[2021-04-03 12:18] LABS: Eosinophils # 0.1 K/mcL (0.0-0.6); Monocytes # 0.1 K/mcL (0.0-1.3); Platelet Estimate Normal (Normal)
[2021-04-03] MEDS ORDERED: Insulin DETEMIR 100 UNIT/ML X5UNITS SUBQ ONE ×2 (17:38→21:15)
[2021-04-03] MEDS: Famotidine 20 MG TABLET PO SCH (19:45)
[2021-04-03] MEDS: Mirtazapine 15 MG TABLET PO SCH (19:45)
[2021-04-03] MEDS: Magnesium Oxide 400 MG TABLET PO SCH (19:46)
[2021-04-04 03:26] LABS: Eosinophils % 1.4 %; Hematocrit 23.8 % (35.3-44.9); Lymphocytes # 0.2 K/mcL (0.6-4.6); Lymphocytes % 11.2 %; Mean Corpuscular HGB Conc 32.8 g/dL (31.6-35.5); Mean Corpuscular Hemoglobin 28.6 pg (28.0-33.3); Mean Corpuscular Volume 87.2 fL (83.0-100.0); Mean Platelet Volume 9.3 fL (9.4-12.4); Monocytes # 0.2 K/mcL (0.0-1.3); Monocytes % 12.6 %; Neutrophils # 1.1 K/mcL (1.6-8.9); Platelet Count 185 K/mcL (140-400); Red Blood Count 2.73 M/mcL (3.82-4.97); Red Cell Distribution Width 13.9 % (11.5-14.5); Segmented Neutrophils % 74.8 %; White Blood Count 1.4 K/mcL (4.3-11.1)
[2021-04-04 03:27] LABS: Hemoglobin 7.8 g/dL (11.5-15.4)
[2021-04-04 03:50] LABS: BUN/Creatinine Ratio 35 (6-26); Blood Urea Nitrogen 21 mg/dL (8-23); Calcium 7.9 mg/dL (8.6-10.3); Carbon Dioxide 21 mEq/L (23-29); Chloride 101 mEq/L (98-107); Glucose 278 mg/dL (70-105); Magnesium 1.6 mg/dL (1.6-2.6); Osmolality,Calculated 283 (280-300); Potassium 4.5 mEq/L (3.5-5.1); Sodium 130 mEq/L (136-145); eGFR For African Americans > 60 (> 60); eGFR For Non-African Americans > 60 (> 60)
[2021-04-04] MEDS: Morphine Sulfate ER (12 HR) 15 MG TABLET.ER PO SCH ×2 (05:09→16:50)
[2021-04-04] MEDS: Insulin LISPRO 300 UNITS/3 ML VIAL SUBQ SCH ×3 (07:34→16:50)
[2021-04-04] MEDS: Insulin DETEMIR 100 UNIT/ML X5UNITS SUBQ SCH (07:34)
[2021-04-04] MEDS: Magnesium Oxide 400 MG TABLET PO SCH ×2 (07:35→20:08)
[2021-04-04] MEDS: dexAMETHasone 4 MG TABLET PO SCH (07:35)
[2021-04-04] MEDS: carvediloL 6.25 MG TABLET PO SCH ×2 (07:35→16:50)
[2021-04-04] MEDS: Apixaban 5 MG TABLET PO SCH ×2 (07:35→20:05)
[2021-04-04] MEDS: Famotidine 20 MG TABLET PO SCH (20:06)
[2021-04-04] MEDS: Mirtazapine 15 MG TABLET PO SCH (20:06)
[2021-04-05 04:54] LABS: Mean Platelet Volume 9.2 fL (9.4-12.4)
[2021-04-05 04:55] LABS: Hematocrit 23.1 % (35.3-44.9); Hemoglobin 7.5 g/dL (11.5-15.4); Lymphocytes # 0.2 K/mcL (0.6-4.6); Mean Corpuscular HGB Conc 32.5 g/dL (31.6-35.5); Mean Corpuscular Hemoglobin 28.8 pg (28.0-33.3); Mean Corpuscular Volume 88.8 fL (83.0-100.0); Platelet Count 208 K/mcL (140-400); Red Cell Distribution Width 13.8 % (11.5-14.5); White Blood Count 1.3 K/mcL (4.3-11.1)
[2021-04-05 05:15] LABS: BUN/Creatinine Ratio 38 (6-26); Blood Urea Nitrogen 22 mg/dL (8-23); Calcium 8.1 mg/dL (8.6-10.3); Carbon Dioxide 26 mEq/L (23-29); Chloride 103 mEq/L (98-107); Glucose 210 mg/dL (70-105); Magnesium 1.4 mg/dL (1.6-2.6); Osmolality,Calculated 286 (280-300); Potassium 4.4 mEq/L (3.5-5.1); Sodium 133 mEq/L (136-145); eGFR For African Americans > 60 (> 60); eGFR For Non-African Americans > 60 (> 60)
[2021-04-05] MEDS: Morphine Sulfate ER (12 HR) 15 MG TABLET.ER PO SCH ×2 (05:16→17:47)
[2021-04-05 05:41] LABS: Monocytes # 0.1 K/mcL (0.0-1.3)
[2021-04-05 05:42] LABS: Platelet Estimate Normal (Normal); Reactive Lymphocytes Present (Not Present)
[2021-04-05] MEDS: Apixaban 5 MG TABLET PO SCH ×2 (08:58→21:44)
[2021-04-05] MEDS: dexAMETHasone 4 MG TABLET PO SCH (08:58)
[2021-04-05] MEDS: carvediloL 6.25 MG TABLET PO SCH ×2 (08:58→17:47)
[2021-04-05] MEDS: Insulin DETEMIR 100 UNIT/ML X5UNITS SUBQ SCH (08:59)
[2021-04-05] MEDS: Insulin LISPRO 300 UNITS/3 ML VIAL SUBQ SCH ×3 (09:00→16:09)
[2021-04-05] MEDS: Cyanocobalamin (B-12) 1,000 MCG TABLET PO SCH (17:47)
[2021-04-05] MEDS ORDERED: 0.9 % Sodium Chloride 250 ML ONE (18:33)
[2021-04-05] MEDS: Mirtazapine 15 MG TABLET PO SCH (21:44)
[2021-04-05] MEDS: Acetaminophen 325 MG TABLET PO PRN (21:45)
[2021-04-05] MEDS: Famotidine 20 MG TABLET PO SCH (21:45)
[2021-04-06] MEDS: Morphine Sulfate ER (12 HR) 15 MG TABLET.ER PO SCH ×2 (05:38→16:55)
[2021-04-06 06:43] LABS: Eosinophils % 1.1 %; Hematocrit 29.3 % (35.3-44.9); Immature Granulocytes % 0.6 % (0-4); Lymphocytes # 0.2 K/mcL (0.6-4.6); Lymphocytes % 10.7 %; Mean Corpuscular HGB Conc 34.1 g/dL (31.6-35.5); Mean Corpuscular Hemoglobin 29.2 pg (28.0-33.3); Mean Corpuscular Volume 85.7 fL (83.0-100.0); Mean Platelet Volume 9.1 fL (9.4-12.4); Monocytes # 0.2 K/mcL (0.0-1.3); Monocytes % 10.1 %; Neutrophils # 1.4 K/mcL (1.6-8.9); Platelet Count 239 K/mcL (140-400); Red Blood Count 3.42 M/mcL (3.82-4.97); Red Cell Distribution Width 13.8 % (11.5-14.5); Segmented Neutrophils % 77.5 %; White Blood Count 1.8 K/mcL (4.3-11.1)
[2021-04-06 07:03] LABS: BUN/Creatinine Ratio 46 (6-26); Blood Urea Nitrogen 26 mg/dL (8-23); Calcium 8.2 mg/dL (8.6-10.3); Carbon Dioxide 23 mEq/L (23-29); Chloride 103 mEq/L (98-107); Glucose 181 mg/dL (70-105); Magnesium 1.6 mg/dL (1.6-2.6); Osmolality,Calculated 287 (280-300); Potassium 4.5 mEq/L (3.5-5.1); Sodium 134 mEq/L (136-145); eGFR For African Americans > 60 (> 60); eGFR For Non-African Americans > 60 (> 60)
[2021-04-06 07:08] LABS: Anisocytosis 1+ (Not Present); Platelet Estimate Normal (Normal); Reactive Lymphocytes Present (Not Present)
[2021-04-06] MEDS: Insulin DETEMIR 100 UNIT/ML X5UNITS SUBQ SCH (08:11)
[2021-04-06] MEDS: Apixaban 5 MG TABLET PO SCH ×2 (08:11→20:46)
[2021-04-06] MEDS: Insulin LISPRO 300 UNITS/3 ML VIAL SUBQ SCH ×3 (08:11→16:55)
[2021-04-06] MEDS: carvediloL 6.25 MG TABLET PO SCH ×2 (08:12→16:55)
[2021-04-06] MEDS: dexAMETHasone 4 MG TABLET PO SCH (08:12)
[2021-04-06] MEDS: lisinopriL 5 MG TABLET PO SCH (08:15)
[2021-04-06 10:09] LABS: Adenovirus Not Detected (Not Detect); Bordetella Pertussis Not Detected (Not Detect); Chlamydophila pneumoniae Not Detected (Not Detect); Coronavirus 229E Not Detected (Not Detect); Coronavirus HKU1 Not Detected (Not Detect); Coronavirus NL63 Not Detected (Not Detect); Coronavirus OC43 Not Detected (Not Detect); Human Metapneumovirus Not Detected (Not Detect); Human Rhinovirus/Enterovirus Not Detected (Not Detect); Influenza A Subtype 2009 H1 Not Detected (Not Detect); Influenza B Not Detected (Not Detect); Mycoplasma pneumoniae Not Detected (Not Detect); Parainfluenza Virus 1 Not Detected (Not Detect); Parainfluenza Virus 2 Not Detected (Not Detect); Parainfluenza Virus 3 Not Detected (Not Detect); Parainfluenza Virus 4 Not Detected (Not Detect); Respiratory Syncytial Virus Not Detected (Not Detect); SARS-CoV-2 Not Detected (Not Detect)
[2021-04-06] MEDS: Famotidine 20 MG TABLET PO SCH (20:46)
[2021-04-06] MEDS: Mirtazapine 15 MG TABLET PO SCH (20:46)
[2021-04-07 02:26] LABS: Basophils % 0.6 %; Immature Granulocytes % 0.6 % (0-4)
[2021-04-07 02:28] LABS: Eosinophils % 1.2 %; Hematocrit 29.6 % (35.3-44.9); Lymphocytes # 0.2 K/mcL (0.6-4.6); Lymphocytes % 9.9 %; Mean Corpuscular HGB Conc 33.8 g/dL (31.6-35.5); Mean Corpuscular Volume 85.8 fL (83.0-100.0); Mean Platelet Volume 8.7 fL (9.4-12.4); Monocytes # 0.2 K/mcL (0.0-1.3); Monocytes % 11.6 %; Neutrophils # 1.3 K/mcL (1.6-8.9); Platelet Count 257 K/mcL (140-400); Red Blood Count 3.45 M/mcL (3.82-4.97); Red Cell Distribution Width 13.9 % (11.5-14.5); Segmented Neutrophils % 76.1 %; White Blood Count 1.7 K/mcL (4.3-11.1)
[2021-04-07 02:43] LABS: Anisocytosis 1+ (Not Present); Poikilocytosis 1+ (Not Present); Reactive Lymphocytes Present (Not Present)
[2021-04-07 02:44] LABS: Platelet Estimate Normal (Normal)
[2021-04-07 02:53] LABS: BUN/Creatinine Ratio 42 (6-26); Blood Urea Nitrogen 24 mg/dL (8-23); Calcium 8.2 mg/dL (8.6-10.3); Carbon Dioxide 22 mEq/L (23-29); Chloride 104 mEq/L (98-107); Glucose 230 mg/dL (70-105); Magnesium 1.3 mg/dL (1.6-2.6); Osmolality,Calculated 287 (280-300); Potassium 4.6 mEq/L (3.5-5.1); Sodium 133 mEq/L (136-145); eGFR For African Americans > 60 (> 60); eGFR For Non-African Americans > 60 (> 60)
[2021-04-07] MEDS: Morphine Sulfate ER (12 HR) 15 MG TABLET.ER PO SCH (05:33)
[2021-04-07] MEDS: dexAMETHasone 4 MG TABLET PO SCH (08:21)
[2021-04-07] MEDS: lisinopriL 5 MG TABLET PO SCH (08:22)
[2021-04-07] MEDS: Apixaban 5 MG TABLET PO SCH (08:22)
[2021-04-07] MEDS: carvediloL 6.25 MG TABLET PO SCH (08:22)
[2021-04-07] MEDS: Insulin LISPRO 300 UNITS/3 ML VIAL SUBQ SCH ×2 (08:22→12:15)
[2021-04-07] MEDS: Insulin DETEMIR 100 UNIT/ML X5UNITS SUBQ SCH (08:25)
[2021-04-07 15:34] VITALS: BP 110/63
== END 2021-04-07 16:37 | disposition other institution (70) | DRG 64 ==
LOC: EMEROOARM 07:44 → 2ANU 07:44 → SUATTDRO 19:11
PROVIDERS: ADMIT Internal Medicine; ATTEND Pharmacist

== ENCOUNTER 2021-05-12 10:39 | Inpatient (IN) ==
[2021-05-12] MEDS ORDERED: 0.9 % Sodium Chloride 2,000 ML ONE (10:45)
[2021-05-12] MEDS ORDERED: 0.9 % Sodium Chloride 1,000 ML IVC ONE (10:46)
[2021-05-12 11:03] LABS: VBG HCO3 16 mEq/L (21-27); VBG PCO2 31 mmHg (41-51); VBG PH 7.34 pH Units (7.32-7.42); VBG PO2 42 mmHg (25-50)
[2021-05-12 11:03] LABS: Nucleated Red Blood Cells 0.1 /100 WBC (0)
[2021-05-12 11:04] LABS: Hematocrit 17.4 % (35.3-44.9); Mean Corpuscular Hemoglobin 30.9 pg (28.0-33.3); Mean Corpuscular Volume 99.4 fL (83.0-100.0); Platelet Count 437 K/mcL (140-400); Red Blood Count 1.75 M/mcL (3.82-4.97); Red Cell Distribution Width 21.1 % (11.5-14.5); White Blood Count 18.8 K/mcL (4.3-11.1)
[2021-05-12] MEDS ORDERED: Pantoprazole 40 MG VIAL IVP ONE ×2 (11:10→13:42)
[2021-05-12 11:15] LABS: INR 1.5; Prothrombin Time 17.1 Seconds (9.4-12.1)
[2021-05-12 11:18] LABS: Activated Partial Thrombo Time 27.4 Seconds (26.0-36.0)
[2021-05-12] MEDS ORDERED: WATER FOR INJ IVPB ONE (11:21)
[2021-05-12] MEDS ORDERED: HUM PROTHROMBIN CPLX IVPB ONE (11:21)
[2021-05-12] MEDS ORDERED: [UNRECOGNIZED DRUG - OTHER] IVPB ONE (11:21)
[2021-05-12 11:26] LABS: BUN/Creatinine Ratio 69 (6-26); Blood Urea Nitrogen 40 mg/dL (8-23); Carbon Dioxide 16 mEq/L (23-29); Chloride 103 mEq/L (98-107); Glucose 421 mg/dL (70-105); Osmolality,Calculated 310 (280-300); Potassium 4.4 mEq/L (3.5-5.1); Sodium 136 mEq/L (136-145); eGFR For African Americans > 60 (> 60); eGFR For Non-African Americans > 60 (> 60)
[2021-05-12] MEDS ORDERED: Ondansetron 4 MG/2 ML VIAL IVP ONE (11:27)
[2021-05-12] MEDS ORDERED: *HR* FentaNYL (PF) 100 MCG/2 ML VIAL IVP ONE (11:27)
[2021-05-12] MEDS ORDERED: Isovue-370 500 ML BOTTLE IVP ONE (11:28)
[2021-05-12 11:35] LABS: Hemoglobin 5.4 g/dL (11.5-15.4)
[2021-05-12 11:42] LABS: Anisocytosis 2+ (Not Present); Lymphocytes # 8.1 K/mcL (0.6-4.6); Monocytes # 1.7 K/mcL (0.0-1.3); Neutrophils # 8.8 K/mcL (1.6-8.9); Platelet Estimate Increased (Normal)
[2021-05-12] MEDS ORDERED: Naloxone 0.4 MG/ML INJ IVP PRN (13:29)
[2021-05-12] MEDS ORDERED: Ondansetron 4 MG/2 ML VIAL IVP PRN (13:29)
[2021-05-12] MEDS ORDERED: Insulin Regular, Human 100 UNIT/ML IV PRN (15:28)
[2021-05-12] MEDS ORDERED: *HR* Dextrose 50 % in Water (Vial) 50 ML VIAL IVP PRN (15:28)
[2021-05-12 16:13] LABS: Basophils % 0.1 %; Hematocrit 20.8 % (35.3-44.9); Hemoglobin 6.7 g/dL (11.5-15.4); Immature Granulocytes % 2.3 % (0-4); Lymphocytes # 1.4 K/mcL (0.6-4.6); Lymphocytes % 10.2 %; Mean Corpuscular HGB Conc 32.2 g/dL (31.6-35.5); Mean Corpuscular Hemoglobin 28.8 pg (28.0-33.3); Mean Platelet Volume 8.9 fL (9.4-12.4); Monocytes # 0.5 K/mcL (0.0-1.3); Monocytes % 3.4 %; Neutrophils # 11.6 K/mcL (1.6-8.9); Nucleated Red Blood Cells 0.1 /100 WBC (0); Platelet Count 300 K/mcL (140-400); Red Blood Count 2.33 M/mcL (3.82-4.97); Red Cell Distribution Width 18.1 % (11.5-14.5); White Blood Count 13.9 K/mcL (4.3-11.1)
[2021-05-12 16:16] LABS: Mean Corpuscular Volume 89.3 fL (83.0-100.0)
[2021-05-12] MEDS: Pantoprazole 40 MG in 0.9 % Sodium Chloride Mini Bag 100 ML IVC SCH ×2 (16:35→21:46)
[2021-05-12] MEDS ORDERED: 0.9 % Sodium Chloride 250 ML IVC SCH (18:00)
[2021-05-12] MEDS: 0.45 % Sodium Chloride w/KCl 20 MEQ/1,000 ML MLS IVC SCH ×2 (18:03→18:15)
[2021-05-12] MEDS ORDERED: levoFLOXacin 750 MG/150 ML 750 MG/150 ML BAG IVPB SCH (18:15)
[2021-05-12 18:24] LABS: ABG Base Excess -7 mEq/L (-2 to 3); ABG HCO3 16 mEq/L (21-27); ABG Oxygen Saturation 98 % (95-98); ABG PCO2 20 mmHg (35-45); ABG PH 7.51 pH Units (7.32-7.45); ABG PO2 87 mmHg (85-104); ABG TCO2 17 mEq/L (20-26)
[2021-05-12] MEDS: MetroNIDAZOLE 500 MG/100 ML 500 MG/100 ML BAG IVPB SCH (20:20)
[2021-05-12 20:47] LABS: Hematocrit 18.5 % (35.3-44.9)
[2021-05-12 20:54] LABS: Hemoglobin 5.8 g/dL (11.5-15.4)
[2021-05-12 21:04] LABS: VBG HCO3 21 mEq/L (21-27); VBG PCO2 43 mmHg (41-51); VBG PH 7.29 pH Units (7.32-7.42); VBG PO2 52 mmHg (25-50)
[2021-05-12 21:31] LABS: BUN/Creatinine Ratio 77 (6-26); Blood Urea Nitrogen 40 mg/dL (8-23); Calcium 7.2 mg/dL (8.6-10.3); Carbon Dioxide 21 mEq/L (23-29); Chloride 110 mEq/L (98-107); Glucose 234 mg/dL (70-105); Osmolality,Calculated 303 (280-300); Potassium 4.1 mEq/L (3.5-5.1); Sodium 138 mEq/L (136-145); eGFR For African Americans > 60 (> 60); eGFR For Non-African Americans > 60 (> 60)
[2021-05-12] MEDS: 0.9 % Sodium Chloride w KCl 20 MEQ/1,000 ML MLS IVC SCH (21:37)
[2021-05-13] MEDS: Pantoprazole 40 MG in 0.9 % Sodium Chloride Mini Bag 100 ML IVC SCH ×4 (03:13→15:57)
[2021-05-13] MEDS: MetroNIDAZOLE 500 MG/100 ML 500 MG/100 ML BAG IVPB SCH ×3 (03:13→18:00)
[2021-05-13 03:37] LABS: VBG HCO3 15 mEq/L (21-27); VBG PCO2 33 mmHg (41-51); VBG PH 7.27 pH Units (7.32-7.42); VBG PO2 151 mmHg (25-50)
[2021-05-13 04:21] LABS: Basophils % 0.2 %; Hematocrit 20.6 % (35.3-44.9); Immature Granulocytes % 1.8 % (0-4); Lymphocytes # 1.6 K/mcL (0.6-4.6); Lymphocytes % 15.9 %; Mean Corpuscular HGB Conc 32.5 g/dL (31.6-35.5); Mean Corpuscular Hemoglobin 29.3 pg (28.0-33.3); Mean Platelet Volume 8.3 fL (9.4-12.4); Monocytes # 0.9 K/mcL (0.0-1.3); Monocytes % 9.2 %; Neutrophils # 7.3 K/mcL (1.6-8.9); Nucleated Red Blood Cells 0.3 /100 WBC (0); Platelet Count 177 K/mcL (140-400); Red Blood Count 2.29 M/mcL (3.82-4.97); Red Cell Distribution Width 17.1 % (11.5-14.5); Segmented Neutrophils % 72.9 %
[2021-05-13 04:23] LABS: Hemoglobin 6.7 g/dL (11.5-15.4)
[2021-05-13 04:26] LABS: VBG HCO3 21 mEq/L (21-27); VBG PCO2 44 mmHg (41-51); VBG PH 7.29 pH Units (7.32-7.42); VBG PO2 56 mmHg (25-50)
[2021-05-13 04:35] LABS: INR 1.4; Prothrombin Time 16.4 Seconds (9.4-12.1)
[2021-05-13 04:43] LABS: BUN/Creatinine Ratio 79 (6-26); Blood Urea Nitrogen 33 mg/dL (8-23); Calcium 6.8 mg/dL (8.6-10.3); Carbon Dioxide 20 mEq/L (23-29); Chloride 114 mEq/L (98-107); Glucose 160 mg/dL (70-105); Magnesium 1.3 mg/dL (1.6-2.6); Osmolality,Calculated 297 (280-300); Sodium 138 mEq/L (136-145); eGFR For African Americans > 60 (> 60); eGFR For Non-African Americans > 60 (> 60)
[2021-05-13 04:45] LABS: Estimated Average Glucose 137 mg/dl; Hemoglobin A1C 6.4 %
[2021-05-13] MEDS ORDERED: Calcium Chloride 1,000 MG in 0.9 % Sodium Chloride 100 ML IVPB ONE (04:47)
[2021-05-13] MEDS: D5% in 0.45% NACL w KCl 20 MEQ/1,000 ML MLS IVC PRN ×2 (05:34)
[2021-05-13] MEDS: Insulin DETEMIR 100 UNIT/ML X5UNITS SUBQ SCH ×2 (08:53→20:42)
[2021-05-13] MEDS ORDERED: D5% in Water 1,000 ML IVC PRN (09:07)
[2021-05-13] MEDS ORDERED: Dextrose Gel 15 GM/37.5 ML TUBE PO PRN ×2 (09:07)
[2021-05-13] MEDS: Insulin LISPRO 300 UNITS/3 ML VIAL SUBQ SCH ×3 (11:37→20:42)
[2021-05-13] MEDS ORDERED: Lidocaine -MPF 1% 5 ML AMPUL INFILT ONE (17:48)
[2021-05-13 23:59] LABS: VBG HCO3 19 mEq/L (21-27); VBG PCO2 32 mmHg (41-51); VBG PH 7.39 pH Units (7.32-7.42); VBG PO2 108 mmHg (25-50)
[2021-05-14] MEDS: Pantoprazole 40 MG in 0.9 % Sodium Chloride Mini Bag 100 ML IVC SCH ×6 (00:12→23:23)
[2021-05-14 00:15] LABS: BUN/Creatinine Ratio 72 (6-26); Blood Urea Nitrogen 21 mg/dL (8-23); Calcium 7.2 mg/dL (8.6-10.3); Carbon Dioxide 19 mEq/L (23-29); Chloride 111 mEq/L (98-107); Glucose 71 mg/dL (70-105); Osmolality,Calculated 283 (280-300); Potassium 3.1 mEq/L (3.5-5.1); Sodium 136 mEq/L (136-145); eGFR For African Americans > 60 (> 60); eGFR For Non-African Americans > 60 (> 60)
[2021-05-14 00:26] LABS: Hematocrit 22.9 % (35.3-44.9); Hemoglobin 8.1 g/dL (11.5-15.4)
[2021-05-14] MEDS ORDERED: POTASSIUM CHLORIDE IN 0.9%NACL 40 MEQ/1,000 ML IV.SOLN IV ONE (00:43)
[2021-05-14] MEDS ORDERED: Potassium Chloride 40 MEQ, Lidocaine 1% 2 ML in 0.9 % Sodium Chloride 500 ML IVPB ONE (00:56)
[2021-05-14] MEDS: MetroNIDAZOLE 500 MG/100 ML 500 MG/100 ML BAG IVPB SCH ×2 (02:10→10:43)
[2021-05-14] MEDS: Insulin LISPRO 300 UNITS/3 ML VIAL SUBQ SCH ×4 (07:23→20:23)
[2021-05-14 10:26] LABS: Hematocrit 24.9 % (35.3-44.9); Hemoglobin 8.6 g/dL (11.5-15.4); Mean Corpuscular HGB Conc 34.5 g/dL (31.6-35.5); Mean Corpuscular Hemoglobin 30.5 pg (28.0-33.3); Mean Corpuscular Volume 88.3 fL (83.0-100.0); Mean Platelet Volume 8.4 fL (9.4-12.4); Platelet Count 195 K/mcL (140-400); Red Blood Count 2.82 M/mcL (3.82-4.97); Red Cell Distribution Width 17.9 % (11.5-14.5); White Blood Count 9.1 K/mcL (4.3-11.1)
[2021-05-14 10:45] LABS: BUN/Creatinine Ratio 63 (6-26); Blood Urea Nitrogen 19 mg/dL (8-23); Calcium 7.1 mg/dL (8.6-10.3); Carbon Dioxide 18 mEq/L (23-29); Chloride 111 mEq/L (98-107); Glucose 244 mg/dL (70-105); Osmolality,Calculated 286 (280-300); Potassium 3.8 mEq/L (3.5-5.1); Sodium 133 mEq/L (136-145); eGFR For African Americans > 60 (> 60); eGFR For Non-African Americans > 60 (> 60)
[2021-05-14] MEDS ORDERED: *HR* Metoprolol 5 MG/5 ML VIAL IVP ONE (20:15)
[2021-05-14] MEDS: Calcium Gluconate 1gm/50mL 1 GM/50 ML BAG IVPB SCH (20:18)
[2021-05-14] MEDS: 0.45 % Sodium Chloride w/KCl 20 MEQ/1,000 ML MLS IVC SCH ×3 (20:19→20:21)
[2021-05-14] MEDS: 0.9 % Sodium Chloride w KCl 20 MEQ/1,000 ML MLS IVC SCH ×2 (20:21→20:22)
[2021-05-14] MEDS: Insulin DETEMIR 100 UNIT/ML X5UNITS SUBQ SCH (20:23)
[2021-05-14 23:21] LABS: Hematocrit 21.7 % (35.3-44.9); Hemoglobin 7.4 g/dL (11.5-15.4); Mean Corpuscular HGB Conc 34.1 g/dL (31.6-35.5); Mean Corpuscular Hemoglobin 30.2 pg (28.0-33.3); Mean Corpuscular Volume 88.6 fL (83.0-100.0); Mean Platelet Volume 8.2 fL (9.4-12.4); Platelet Count 178 K/mcL (140-400); Red Blood Count 2.45 M/mcL (3.82-4.97); White Blood Count 6.3 K/mcL (4.3-11.1)
[2021-05-15 04:33] LABS: Hematocrit 22.7 % (35.3-44.9); Hemoglobin 7.4 g/dL (11.5-15.4); Mean Corpuscular HGB Conc 32.6 g/dL (31.6-35.5); Mean Platelet Volume 8.3 fL (9.4-12.4); Platelet Count 186 K/mcL (140-400); Red Blood Count 2.55 M/mcL (3.82-4.97); Red Cell Distribution Width 17.9 % (11.5-14.5); White Blood Count 6.5 K/mcL (4.3-11.1)
[2021-05-15 04:50] LABS: BUN/Creatinine Ratio 52 (6-26); Blood Urea Nitrogen 13 mg/dL (8-23); Calcium 7.2 mg/dL (8.6-10.3); Carbon Dioxide 23 mEq/L (23-29); Chloride 108 mEq/L (98-107); Glucose 69 mg/dL (70-105); Osmolality,Calculated 280 (280-300); Potassium 3.1 mEq/L (3.5-5.1); Sodium 136 mEq/L (136-145); eGFR For African Americans > 60 (> 60); eGFR For Non-African Americans > 60 (> 60)
[2021-05-15] MEDS: Pantoprazole 40 MG in 0.9 % Sodium Chloride Mini Bag 100 ML IVC SCH ×4 (05:00→20:48)
[2021-05-15] MEDS ORDERED: Perflutren Lipid Microsphere 1.3 ML in 0.9 % Sodium Chloride 8.7 ML IVP PRN (07:19)
[2021-05-15] MEDS: Insulin LISPRO 300 UNITS/3 ML VIAL SUBQ SCH ×4 (08:12→20:47)
[2021-05-15] MEDS ORDERED: Isovue-370 500 ML BOTTLE IVP ONE ×2 (09:42→13:01)
[2021-05-15] MEDS: Insulin DETEMIR 100 UNIT/ML X5UNITS SUBQ SCH (20:48)
[2021-05-16 04:25] LABS: Hematocrit 26.9 % (35.3-44.9); Hemoglobin 8.9 g/dL (11.5-15.4); Mean Corpuscular HGB Conc 33.1 g/dL (31.6-35.5); Mean Corpuscular Hemoglobin 29.9 pg (28.0-33.3); Mean Corpuscular Volume 90.3 fL (83.0-100.0); Mean Platelet Volume 8.3 fL (9.4-12.4); Platelet Count 174 K/mcL (140-400); Red Blood Count 2.98 M/mcL (3.82-4.97); Red Cell Distribution Width 17.4 % (11.5-14.5); White Blood Count 5.5 K/mcL (4.3-11.1)
[2021-05-16] MEDS: Pantoprazole 40 MG in 0.9 % Sodium Chloride Mini Bag 100 ML IVC SCH ×3 (04:35→10:22)
[2021-05-16 04:50] LABS: Chol/HDL Ratio 2.4 (0-4.9)
[2021-05-16 04:51] LABS: BUN/Creatinine Ratio 33 (6-26); Blood Urea Nitrogen 11 mg/dL (8-23); Calcium 7.4 mg/dL (8.6-10.3); Carbon Dioxide 26 mEq/L (23-29); Chloride 106 mEq/L (98-107); Glucose 165 mg/dL (70-105); Magnesium 1.5 mg/dL (1.6-2.6); Osmolality,Calculated 285 (280-300); Potassium 3.3 mEq/L (3.5-5.1); Sodium 136 mEq/L (136-145); eGFR For African Americans > 60 (> 60); eGFR For Non-African Americans > 60 (> 60)
[2021-05-16] MEDS: Insulin LISPRO 300 UNITS/3 ML VIAL SUBQ SCH ×5 (08:57→20:39)
[2021-05-16] MEDS ORDERED: Iron Sucrose Complex 400 MG in 0.9 % Sodium Chloride 250 ML IVPB ONE (09:23)
[2021-05-16 11:11] LABS: Bilirubin,Urine Negative (Negative); Blood,Urine Negative (Negative); Clarity,Urine Clear (Clear); Color,Urine Colorless (Yellow); Glucose,Urine (UA) >=1000 mg/dL (Normal); Ketones,Urine Negative (Negative); Leukocyte Esterase,Urine Negative (Negative); Nitrite,Urine Negative (Negative); Protein,Urine Negative (Neg-Trace); RBC,Urine 0-3 per hpf (0-3); Specific Gravity,Urine 1.021 (1.010-1.025); Squamous Epithelial Cell,Urine Few per hpf (None-Few); Urobilinogen,Urine Normal (Normal)
[2021-05-16] MEDS ORDERED: Insulin LISPRO 300 UNITS/3 ML VIAL SUBQ SCH ×2 (20:00→21:00)
[2021-05-16] MEDS ORDERED: Insulin DETEMIR 100 UNIT/ML X5UNITS SUBQ SCH (21:00)
[2021-05-17 07:16] VITALS: BP 112/64; PULSE 83; TEMP 97.6; O2SAT 94
[2021-05-17] MEDS: Insulin LISPRO 300 UNITS/3 ML VIAL SUBQ SCH (07:30)
[2021-05-17] MEDS ORDERED: Insulin LISPRO 300 UNITS/3 ML VIAL SUBQ SCH (08:00)
== END 2021-05-17 12:19 | disposition hospice, home (50) | DRG 871 ==
LOC: EMEROOARM 10:39 → SUATTDRO 13:42 → 2ANU 13:42 → 2NNU 17:17 → 2ANU 05-16 14:18
PROVIDERS: ADMIT Pharmacist; ATTEND Internal Medicine